=== PATIENT | male | born 1940 | race Caucasian/White ===

== ENCOUNTER 2017-10-08 11:29 | Inpatient (IN) ==
--- NOTE | 2017-10-08 12:00 | Emergency Department Note ---
Disposition Clinical Impression: Hyponatremia, Acute exacerbation of chronic obstructive airways disease Disposition: Admitted As Inpatient Condition: Fair Referrals: Angel Harrell MD [Primary Care Provider] - Time of Disposition: 14:05 SOB HPI - General Chief Complaint: ED Shortness of Breath/Dyspnea Stated Complaint: Low O2 sat Source: patient Mode of arrival: ambulatory Limitations: no limitations Nursing Notes Reviewed: Yes Vital Signs Reviewed: Yes - History of Present Illness 77-year-old male with history of COPD presents to emergency department with complaint of shortness of breath. States this present for 2 days however time of interview patient is currently asymptomatic. Did notice that at urgent care his oxygen saturation was 87%. Oxygen dependent at home but does take albuterol and fluticasone inhalers at home. Does admit to a productive cough with thick green sputum which is changed from his baseline cough of thick and clear. Denies any symptoms of orthopnea, PND, fevers, chills, recent illness, chest pain, sick contacts. He states he has never been admitted for his COPD and has had some relief with his inhalers. Pt Subjective Complaint: shortness of breath Onset (ago): day(s) Consistency/Duration: constant Improves with: bronchodilators Worsens with: nothing Known history of: COPD Associated symptoms: Reports: cough. Denies: chest pain, fever, wheezing, orthopnea, palpitations, diaphoresis, nausea/vomiting Treatment prior to arrival: bronchodilator Cough present: Yes Cough Description: Productive Sputum production: Yes Sputum Amount: Moderate Sputum Color: Green - Related Data Home oxygen amount: none Home Medications Medication Instructions Recorded Confirmed ALPRAZolam [Xanax 1 MG Tablet] 1 mg PO BID 10/08/17 10/08/17 Albuterol Sulfate [Ventolin Hfa] 2 puff IH Q4H PRN 10/08/17 10/08/17 Fluticasone Propionate Nasal 2 spr NS DAILY 10/08/17 10/08/17 [Flonase] Fluticasone/Vilanterol [Breo 1 puff IH DAILY 10/08/17 10/08/17 Ellipta 100-25 Mcg INH] Montelukast [Singulair] 10 mg PO DAILY 10/08/17 10/08/17 Ranitidine HCl [Zantac] 300 mg PO DAILY 10/08/17 10/08/17 Sulfamethoxazole/Trimeth DS 1 tab PO BID 10/08/17 10/08/17 [Bactrim DS] Allergies Allergy/AdvReac Type Severity Reaction Status Date / Time tiotropium AdvReac Vomiting Verified 10/08/17 15:01 [From Spiriva with HandiHaler] All systems ED: reviewed and negative except as stated. Review of Systems: As Per HPI Past Medical History - Past Medical History Medical history: Reports: asthma, COPD, GERD Psychiatric history: Reports: no psych history - Social History Smoking Status: Never smoker Smokeless Tobacco Status: No Alcohol use: Reports: none Drug use: Reports: none Physical Exam - General Limitations: no limitations General appearance: alert - Head Head exam: atraumatic, normocephalic, normal inspection - ENT ENT exam: normal exam, normal oropharynx, mucous membranes moist - Neck Neck exam: Present: normal inspection, full ROM, trachea midline - Chest Chest inspection: Present: normal inspection, symmetric chest wall rise - Respiratory Respiratory exam: Present: normal lung sounds bilaterally. Absent: respiratory distress, wheezes - Cardiovascular Cardiovascular exam: Present: regular rate, normal rhythm, normal heart sounds - Extremities Exam Extremities exam: Present: normal inspection, full ROM. Absent: tenderness, pedal edema - Neurological Exam Neurological exam: Present: alert, oriented X3 - Psychiatric Psychiatric exam: Present: normal affect, normal mood - Skin Skin exam: Present: warm, dry, intact, normal color Course Course Narrative: 77-year-old male presenting with 2 emergency room department with a complaint of shortness of breath. Vital signs upon presentation are significant for an oxygen saturation of 96% on room air, nontender cardiac, nontachypneic. No significant wheezing auscultated on exam. We will obtain a chest x-ray to evaluate for any underlying pneumonias versus COPD exacerbation. Obtain labs of CBC, BMP, troponin, d-dimer. - Reevaluation(s) Reevaluation #1: Patient now reveals that he is experiencing substernal chest discomfort upon exertion when discussing with attending physician. We will in addition obtain a d-dimer, troponin, EKG and start workup for ACS rule out. Time: 12:10 Vital Signs Temperature 97.4 F L 10/08/17 11:30 Pulse Rate 71 10/08/17 11:30 Respiratory Rate 18 10/08/17 11:30 Blood Pressure 167/77 10/08/17 11:30 O2 Sat by Pulse Oximetry 95 10/08/17 11:30 Temperature 98.4 F 10/08/17 15:09 Pulse Rate 67 10/08/17 15:09 Respiratory Rate 18 10/08/17 15:09 Blood Pressure 184/83 10/08/17 15:09 O2 Sat by Pulse Oximetry 93 10/08/17 15:09 Oxygen Delivery Oxygen Delivery Room Air Shortness of Breath/Dyspnea - [facility] Narrative Medical decision making narrative: 77-year-old male with complaint of shortness of breath. Workup revealed a normal CBC, troponin, EKG. His chest x-ray revealed hyperexpansion with no acute process. His vital signs have remained stable saturating mid 90s on room air and non-tachycardic. His labs were significant however for a sodium of 118 which is decreased from lab draws 3 days ago of 130. No other chemistry abnormalities. We will discuss this with the hospitalist for possible admission of hyponatremia. Discussed with hospitalist, agrees for admission. We will begin SIADH workup including urine sodium and osmolality, tsh. - Lab Data Result diagrams: 10/08/17 12:13 10/08/17 14:48 Lab Results 10/08/17 10/08/17 10/08/17 Range/Units 12:13 12:13 12:13 WBC 8.3 (4.3-11.1) K/mcL RBC 4.49 (4.19-5.50) M/mcL Hgb 13.0 (12.9-16.9) g/dL Hct 37.8 (37.5-50.1) % MCV 84.2 (83.0-100.0) fL MCH 29.0 (28.0-33.3) pg MCHC 34.4 (31.6-35.5) g/dL RDW 13.0 (11.5-14.5) % Plt Count 249 (140-400) K/mcL MPV 8.3 L (9.4-12.4) fL Immature Gran % 0.4 (0-4) % Seg Neutrophils % 80.0 % Lymphocytes % 11.6 % Monocytes % 6.9 % Eosinophils % 0.6 % Basophils % 0.5 % Neutrophils # 6.7 (1.6-8.9) K/mcL Lymphocytes # 1.0 (0.6-4.6) K/mcL Monocytes # 0.6 (0.0-1.3) K/mcL Eosinophils # 0.1 (0.0-0.6) K/mcL Basophils # 0.0 (0.0-0.2) K/mcL D-Dimer 368 (0-500) ng/mLFEU Sodium 118 L* (136-145) mEq/L Potassium 4.2 (3.5-5.1) mEq/L Chloride 85 L (98-107) mEq/L Carbon Dioxide 23 (23-29) mEq/L BUN 11 (8-23) mg/dL Creatinine 0.83 (0.70-1.30) mg/dL Est GFR ( Amer) > 60 (> 60) Est GFR (Non-Af Amer) > 60 (> 60) BUN/Creatinine Ratio 13 (6-26) Glucose 97 (70-105) mg/dL Calculated Osmolality 245 L (280-300) Uric Acid (2.3-7.6) mg/dL Calcium 9.7 (8.6-10.3) mg/dL Troponin I < 0.03 (< 0.04) ng/mL TSH (0.340-5.600) mcIU/mL 10/08/17 Range/Units 14:48 WBC (4.3-11.1) K/mcL RBC (4.19-5.50) M/mcL Hgb (12.9-16.9) g/dL Hct (37.5-50.1) % MCV (83.0-100.0) fL MCH (28.0-33.3) pg MCHC (31.6-35.5) g/dL RDW (11.5-14.5) % Plt Count (140-400) K/mcL MPV (9.4-12.4) fL Immature Gran % (0-4) % Seg Neutrophils % % Lymphocytes % % Monocytes % % Eosinophils % % Basophils % % Neutrophils # (1.6-8.9) K/mcL Lymphocytes # (0.6-4.6) K/mcL Monocytes # (0.0-1.3) K/mcL Eosinophils # (0.0-0.6) K/mcL Basophils # (0.0-0.2) K/mcL D-Dimer (0-500) ng/mLFEU Sodium 119 L* (136-145) mEq/L Potassium (3.5-5.1) mEq/L Chloride (98-107) mEq/L Carbon Dioxide (23-29) mEq/L BUN (8-23) mg/dL Creatinine (0.70-1.30) mg/dL Est GFR ( Amer) (> 60) Est GFR (Non-Af Amer) (> 60) BUN/Creatinine Ratio (6-26) Glucose (70-105) mg/dL Calculated Osmolality (280-300) Uric Acid 3.1 (2.3-7.6) mg/dL Calcium (8.6-10.3) mg/dL Troponin I (< 0.04) ng/mL TSH 1.628 (0.340-5.600) mcIU/mL
[2017-10-08 12:26] LABS: Basophils % 0.5 %; Eosinophils # 0.1 K/mcL (0.0-0.6); Eosinophils % 0.6 %; Hematocrit 37.8 % (37.5-50.1); Immature Granulocytes % 0.4 % (0-4); Lymphocytes % 11.6 %; Mean Corpuscular HGB Conc 34.4 g/dL (31.6-35.5); Mean Corpuscular Volume 84.2 fL (83.0-100.0); Mean Platelet Volume 8.3 fL (9.4-12.4); Monocytes # 0.6 K/mcL (0.0-1.3); Monocytes % 6.9 %; Neutrophils # 6.7 K/mcL (1.6-8.9); Platelet Count 249 K/mcL (140-400); Red Blood Count 4.49 M/mcL (4.19-5.50)
[2017-10-08 12:49] LABS: Troponin I < 0.03 ng/mL (< 0.04)
[2017-10-08 12:52] LABS: BUN/Creatinine Ratio 13 (6-26); Blood Urea Nitrogen 11 mg/dL (8-23); Calcium 9.7 mg/dL (8.6-10.3); Carbon Dioxide 23 mEq/L (23-29); Chloride 85 mEq/L (98-107); Glucose 97 mg/dL (70-105); Osmolality,Calculated 245 (280-300); Potassium 4.2 mEq/L (3.5-5.1); Sodium 118 mEq/L (136-145); eGFR For African Americans > 60 (> 60); eGFR For Non-African Americans > 60 (> 60)
--- NOTE | 2017-10-08 13:20 | Emergency Department Note ---
START Narrative - START START: I examined this patient and my medical decision-making was reviewed with the CONFIDENTIAL SECRETARY/PA/Advanced Practice Nurse/Resident Physician. I agree with the documented findings, disposition and treatment plan as described except to the extent set forth below. The patient does have some bilateral wheezing with forced expiration but not with normal respirations and he has had a color change in sputum. Chest pain worse with exertion and also pleuritic aspect that the troponin and d-dimer are both negative however we did find severe hyponatremia with a level of 118 the patient will be admitted for further evaluation and monitoring. 1320 I did review the patient's EKG showing normal sinus rhythm with a rate of 70 and without evidence of arrhythmia however there is one PVC. No ischemia changes. 1511
[2017-10-08] MEDS ORDERED: 0.9 % Sodium Chloride 1,000 ML IVC ONE (13:39)
[2017-10-08] MEDS ORDERED: Naloxone 0.4 MG/ML INJ IVP PRN (14:56)
[2017-10-08] MEDS ORDERED: Nitroglycerin 0.4 MG TAB.SUBL SL PRN (14:56)
[2017-10-08] MEDS ORDERED: Acetaminophen 325 MG TABLET PO PRN (14:56)
[2017-10-08] MEDS ORDERED: *HR* HYDROcodone/Acet 5/325 mg TABLET PO PRN (14:56)
--- NOTE | 2017-10-08 15:04 | Internal Med History&Physical ---
Date of Encounter: 10/08/17 Time of Encounter: 15:02 Assessment and Plan (1) Hyponatremia Current visit: Yes Status: Acute Severe hyponatremia, unknown cause Check uric acid, if low consider possible SIADH The patient appears to be euvolemic Order stat urine sodium urine osmolality to determine whether the patient needs fluid restriction or supplementation of sodium Monitor sodium every 4 hours, did not increase estrogen 0.5 mEq per hour and maximum of 8 mEq in 24 hours Omeprazole for GI prophylaxis and subcutaneous tinzaparin for DVT prophylaxis. The patient will be admitted as inpatient, expected to stay more than 2 midnights. Full code. Time spent on this admission 40 minutes (2) COPD with acute exacerbation Current visit: Yes Status: Acute Acute on chronic hypoxic respiratory failure secondary to acute COPD exacerbation due to acute bacterial bronchitis, Start Solu-Medrol, Rocephin DuoNeb nebs, oxygen therapy (3) Bronchitis Current visit: Yes Status: Acute (4) GERD (gastroesophageal reflux disease) Current visit: Yes Status: Acute Omeprazole Qualifiers: Esophagitis presence: without esophagitis Qualified Code(s): K21.9 - Gastro -esophageal reflux disease without esophagitis (5) Accelerated hypertension Current visit: Yes Status: Acute Start lisinopril, hydralazine as needed Internal Medicine - H&P: HPI Chief complaint: Shortness of breath and low sodium Admitted From: Emergency Dept History of present illness: Mr. Johnston is a 77 year old male with a past medical history of COPD oxygen dependent, anxiety, GERD, hypertension, came to emergency room complaining of difficulty breathing for the past 2 days, apparently he was seen at an urgent care facility where he was told that he is oxygen saturation was 87%. He has been having greenish sputum/productive cough for the past couple days, denies any sick contacts. Chest x-ray shows signs of emphysema. He was seen by his primary care physician a few days ago in precisely on 10/05/2017 he sodium was 130, today he sodium has decreased down to 118 chloride is 85, the patient mentions that he drinks about a gallon of water every day, does not appear to be dehydrated, appears to be very thin. No other complaints. Blood pressure is 167 over 77, complains of mild abdominal pain. Past Med Surg Social Fam HX - Past Medical History Medical history: asthma, COPD (Oxygen dependent, was not able to have oxygen as his insurance company did not work with the provider), GERD, hypertension Psychiatric history: no psych history - Past Surgical History Surgical History: no surgical history - Social History Smoking Status: Former smoker Packs per day: Quit smoking more than 10 years ago Smokeless Tobacco Status: No Alcohol use: none Drug use: none - Additional Family History Additional family history: Father with heart failure Internal Medicine - H&P: Meds ALPRAZolam [Xanax 1 MG Tablet] 1 mg PO BID 10/08/17 [History] Albuterol Sulfate [Ventolin Hfa] 2 puff IH Q4H PRN 10/08/17 [History] Fluticasone Propionate Nasal [Flonase] 2 spr NS DAILY 10/08/17 [History] Fluticasone/Vilanterol [Breo Ellipta 100-25 Mcg INH] 1 puff IH DAILY 10/08/17 [ History] Montelukast [Singulair] 10 mg PO DAILY 10/08/17 [History] Ranitidine HCl [Zantac] 300 mg PO DAILY 10/08/17 [History] Sulfamethoxazole/Trimeth DS [Bactrim DS] 1 tab PO BID 10/08/17 [History] 3 Allergy/AdvReac Type Severity Reaction Status Date / Time tiotropium AdvReac Vomiting Verified 10/08/17 15:01 [From Spiriva with HandiHaler] All Systems PM: A 10-system review of systems was performed and is negative for pertinent findings except as documented above in the HPI. Review of systems: No chest pain, other systems out of the 10 reviewed were negative - Constitutional Vitals: Temp Pulse Resp BP Pulse Ox 97.4 F L 63 18 128/94 93 10/08/17 11:30 10/08/17 12:54 10/08/17 14:57 10/08/17 14:57 10/08/17 12:54 General appearance: Present: A&O X 3, underweight - Head Head exam: Present: atraumatic, normocephalic - Eye Eye exam: Present: PERRL, conjuntiva pink, sclera anicteric Pupils: Present: PERRL - Neck Neck exam general surgery: Present: supple, trachea midline. Absent: lymphadenopathy - Respiratory Respiratory exam: Present: decreased breath sounds (Mild diffuse wheezing and very diminished breath sounds), CTAB. Absent: accessory muscle use, rales, rhonchi, wheezes - Cardiovascular Cardiovascular exam: Present: RRR, +S1, +S2. Absent: diastolic murmur, gallop, rubs, systolic murmur - GI/Abdominal GI/Abdominal exam: Present: normal bowel sounds, soft, no peritoneal signs. Absent: distended, tenderness - Extremities Exam Extremities exam: Present: warm, radial pulses palpable and symmetrical. Absent : calf tenderness, cyanotic, pedal edema - Neurological Exam Neurological exam: Present: CN II-XII intact, oriented X3, no focal deficits. Absent: pronater drift, facial droop, speech deficit - Skin Skin exam: Present: dry, intact Internal Med - H&P Results - Labs CBC & Chem 7: 10/08/17 12:13 10/08/17 12:13
[2017-10-08 15:33] LABS: Thyroid Stimulating Hormone 1.628 mcIU/mL (0.340-5.600)
[2017-10-08 15:52] LABS: Uric Acid 3.1 mg/dL (2.3-7.6)
[2017-10-08] MEDS: Lisinopril 20 MG TABLET PO SCH (16:22)
[2017-10-08] MEDS: *HR* Heparin 5,000 UNIT/ML VIAL SQ SCH ×2 (16:22→20:49)
[2017-10-08] MEDS: cefTRIAXone 1,000 MG in Water for inj. (sterile) 20 ML 10 ML IVP SCH (16:23)
[2017-10-08] MEDS: MethylPREDNISolone 40 MG/ML VIAL IVP SCH (16:23)
[2017-10-08] MEDS: Ipratropium/Albuterol Neb 3 ML IH SCH ×2 (16:44→22:51)
[2017-10-08] MEDS ORDERED: D5% in Water 1,000 ML IVC SCH (20:15)
[2017-10-08] MEDS: ALPRAZolam 1 MG TABLET PO SCH (20:49)
[2017-10-09] MEDS: MethylPREDNISolone 40 MG/ML VIAL IVP SCH ×3 (00:35→17:45)
[2017-10-09 03:44] LABS: BUN/Creatinine Ratio 15 (6-26); Blood Urea Nitrogen 14 mg/dL (8-23); Calcium 9.8 mg/dL (8.6-10.3); Carbon Dioxide 22 mEq/L (23-29); Chloride 91 mEq/L (98-107); Glucose 194 mg/dL (70-105); Osmolality,Calculated 262 (280-300); Potassium 4.1 mEq/L (3.5-5.1); Sodium 123 mEq/L (136-145); eGFR For African Americans > 60 (> 60); eGFR For Non-African Americans > 60 (> 60)
[2017-10-09] MEDS: Ipratropium/Albuterol Neb 3 ML IH SCH ×4 (03:57→22:00)
[2017-10-09] MEDS: *HR* Heparin 5,000 UNIT/ML VIAL SQ SCH ×3 (06:34→21:42)
[2017-10-09] MEDS: Lisinopril 20 MG TABLET PO SCH (07:30)
[2017-10-09] MEDS: ALPRAZolam 1 MG TABLET PO SCH ×2 (07:31→21:42)
[2017-10-09 11:02] LABS: Adenovirus Not Detected (Not Detect); Bordetella Pertussis Not Detected (Not Detect); Chlamydophila pneumoniae Not Detected (Not Detect); Coronavirus 229E Not Detected (Not Detect); Coronavirus HKU1 Not Detected (Not Detect); Coronavirus NL63 Not Detected (Not Detect); Coronavirus OC43 Not Detected (Not Detect); Human Metapneumovirus Not Detected (Not Detect); Human Rhinovirus/Enterovirus Not Detected (Not Detect); Influenza A Subtype 2009 H1 Not Detected (Not Detect); Influenza A Untypeable Not Detected (Not Detect); Influenza B Not Detected (Not Detect); Mycoplasma pneumoniae Not Detected (Not Detect); Parainfluenza Virus 1 Not Detected (Not Detect); Parainfluenza Virus 2 Not Detected (Not Detect); Parainfluenza Virus 3 Not Detected (Not Detect); Parainfluenza Virus 4 Not Detected (Not Detect); Respiratory Syncytial Virus Not Detected (Not Detect)
[2017-10-09 12:35] LABS: BUN/Creatinine Ratio 14 (6-26); Blood Urea Nitrogen 13 mg/dL (8-23); Calcium 10.1 mg/dL (8.6-10.3); Carbon Dioxide 22 mEq/L (23-29); Chloride 92 mEq/L (98-107); Glucose 124 mg/dL (70-105); Osmolality,Calculated 262 (280-300); Potassium 4.2 mEq/L (3.5-5.1); Sodium 125 mEq/L (136-145); eGFR For African Americans > 60 (> 60); eGFR For Non-African Americans > 60 (> 60)
[2017-10-09] MEDS: cefTRIAXone 1,000 MG in Water for inj. (sterile) 20 ML 10 ML IVP SCH (15:32)
--- NOTE | 2017-10-09 16:08 | Internal Med Progress Note ---
Date of Encounter: 10/09/17 Time of Encounter: 09:00 - Assessment and plan (1) Hyponatremia Current Visit: Yes Status: Acute Assessment and plan: Acute onset. Serum sodium 3 days prior to admission noted to be 130. Patient reports drinking significant amounts of water due to acute bronchitis. Urine osmolality low at 152. Suspect this is due to polydipsia. Discontinue IV fluids and continue to monitor serum sodium closely. Repeat sodium at 125. (2) Acute exacerbation of chronic obstructive airways disease Current Visit: Yes Status: Acute Assessment and plan: Improving. Taper down IV steroids as tolerated. Continue empiric IV antibiotics- Rocephin, add Zithromax; chest x-ray shows no evidence of pneumonia. continue bronchodilator nebulization, supplemental oxygen. Respiratory infection panel negative. Patient requires home oxygen evaluation at the time of discharge. (3) Essential hypertension Current Visit: Yes Status: Chronic Assessment and plan: Patient is not noted to be on any antihypertensives at home, however started on lisinopril due to elevated blood pressure at admission. Currently noted to be borderline low blood pressure. Hold lisinopril. (4) GERD (gastroesophageal reflux disease) Current Visit: Yes Status: Chronic Qualifiers: Esophagitis presence: without esophagitis Qualified Code(s): K21.9 - Gastro -esophageal reflux disease without esophagitis - Subjective Interval history: Feels better; improving dyspnea, wheezing; reports inability to cough up secretions; no home O2; - Constitutional Vitals: Temp Pulse Resp BP Pulse Ox 99.0 F 80 17 101/65 92 10/09/17 10:47 10/09/17 10:47 10/09/17 10:47 10/09/17 10:47 10/09/17 10:47 General appearance: Present: A&O X 3, underweight, answers questions appropriately - Respiratory Respiratory exam: Present: CTAB (coarse breath sounds B/L). Absent: accessory muscle use, rales, rhonchi, wheezes - Cardiovascular Cardiovascular exam: Present: RRR, +S1, +S2. Absent: diastolic murmur, gallop, rubs, systolic murmur - GI/Abdominal GI/Abdominal exam: Present: normal bowel sounds, soft, no peritoneal signs. Absent: distended, tenderness - Extremities Exam Extremities exam: Present: full ROM, warm, radial pulses palpable and symmetrical. Absent: calf tenderness, cyanotic, pedal edema - Neurological Exam Neurological exam: Present: CN II-XII intact, oriented X3, no focal deficits. Absent: pronater drift, facial droop, speech deficit Internal Medicine: Result - Labs CBC & Chem 7: 10/08/17 12:13 10/09/17 11:49 Labs: BMP 10/08/17 10/08/17 10/09/17 18:44 22:08 03:13 Sodium 122 L 123 L 123 L Potassium 4.1 Chloride 91 L Carbon Dioxide 22 L BUN 14 Creatinine 0.92 Glucose 194 H Calcium 9.8 10/09/17 11:49 Sodium 125 L Potassium 4.2 Chloride 92 L Carbon Dioxide 22 L BUN 13 Creatinine 0.96 Glucose 124 H Calcium 10.1 - ABG Interpretation ABG results: PT/INR, D-dimer D-Dimer 368 ng/mLFEU (0-500) 10/08/17 12:13 Consult Discharge Plan - Plan Referrals: Angel Harrell MD [Primary Care Provider] -
--- NOTE | 2017-10-09 16:57 | Electrocardiograph Report ---
[address] [address] Test Date: 2017-10-08 Pat Name: Talon Johnston Department: 102 Room: 2A11 Gender: M [employer] Coach: Henny : 1940 Requested By: Yohannes Rodriguez Order Number: [id number] Reading MD: Jose Villeda Measurements Intervals [place] Rate: 70 P: 84 SD: 153 QRS: 78 QRSD: 101 T: 72 QT: 376 QTc: 396 Interpretive Statements SINUS RHYTHM WITH OCCASIONAL VENTRICULAR PREMATURE COMPLEXES Electronically Signed On 10-09-2017 16:56:34 EST by Jose Villeda
[2017-10-09] MEDS ORDERED: Azithromycin 500 MG in D5% in Water 250 ML IVPB SCH (17:00)
[2017-10-10 03:55] LABS: BUN/Creatinine Ratio 20 (6-26); Blood Urea Nitrogen 20 mg/dL (8-23); Calcium 9.9 mg/dL (8.6-10.3); Carbon Dioxide 21 mEq/L (23-29); Chloride 96 mEq/L (98-107); Glucose 146 mg/dL (70-105); Magnesium 1.9 mg/dL (1.6-2.6); Osmolality,Calculated 271 (280-300); Potassium 4.2 mEq/L (3.5-5.1); Sodium 128 mEq/L (136-145); eGFR For African Americans > 60 (> 60); eGFR For Non-African Americans > 60 (> 60)
[2017-10-10] MEDS: Ipratropium/Albuterol Neb 3 ML IH SCH ×2 (04:32→09:46)
[2017-10-10] MEDS: *HR* Heparin 5,000 UNIT/ML VIAL SQ SCH (06:02)
[2017-10-10] MEDS: MethylPREDNISolone 40 MG/ML VIAL IVP SCH (06:02)
[2017-10-10 06:48] VITALS: BP 109/64
[2017-10-10] MEDS: ALPRAZolam 1 MG TABLET PO SCH (09:12)
--- NOTE | 2017-10-10 10:31 | Discharge Summary ---
Date of Encounter: 10/10/17 Time of Encounter: 09:15 - Discharge Diagnosis (1) Hyponatremia Priority: Primary Status: Acute (2) Acute exacerbation of chronic obstructive airways disease Priority: Primary Status: Acute (3) Essential hypertension Priority: Secondary Status: Suspected (4) GERD (gastroesophageal reflux disease) Priority: Secondary Status: Chronic Qualifiers: Esophagitis presence: without esophagitis Qualified Code(s): K21.9 - Gastro -esophageal reflux disease without esophagitis Hospital course: Mr. Johnston is a 77 year old male with history of COPD, who was admitted with worsening cough and shortness of breath. Patient was recently started on a course of oral Bactrim by his PCP. Chest x-ray showed no evidence of pneumonia. Respiratory infection panel negative. He was started on treatment for acute exacerbation of COPD with IV steroids, empiric IV antibiotics, bronchodilators nebulization, supplemental oxygen. Patient was apparently noted to be hypoxic on room air during a prior urgent care visit, however did not require supplemental oxygen during this admission, hence does not qualify for home oxygen. He was noted to have hypoosmolar hyponatremia at admission, which is likely due to excessive ingestion of free water. He was placed on fluid restriction and serum sodium gradually improved to 128. He was also noted to have uncontrolled hypertension at the time of admission and was started on CHRISTIAN inhibitor, not noted to be on antihypertensives at home. Blood pressures remained low normal and lisinopril has been discontinued. He is currently doing well, hemodynamically stable and medically stable for discharge with outpatient follow-up. Discharge discussed with: patient - Time Spent with Patient Total time spent providing and/or coordinating discharge services: Greater than 30 minutes (40 min) - Discharge Medications Prescriptions: Omeprazole [PriLOSEC] 20 mg PO DAILY@0630 #10 capsule. predniSONE [PredniSONE] 40 mg PO DAILY #10 tablet Home Medications: ALPRAZolam [Xanax 1 MG Tablet] 1 mg PO BID 10/08/17 [History] Albuterol Sulfate [Ventolin Hfa] 2 puff IH Q4H PRN 10/08/17 [History] Fluticasone Propionate Nasal [Flonase] 2 spr NS DAILY 10/08/17 [History] Fluticasone/Vilanterol [Breo Ellipta 100-25 Mcg INH] 1 puff IH DAILY 10/08/17 [ History] Montelukast [Singulair] 10 mg PO DAILY 10/08/17 [History] Ranitidine HCl [Zantac] 300 mg PO DAILY 10/08/17 [History] Sulfamethoxazole/Trimeth DS [Bactrim Ds] 1 tab PO BID 10/08/17 [History] Omeprazole [PriLOSEC] 20 mg PO DAILY@0630 #10 capsule. 10/10/17 [Rx] predniSONE [PredniSONE] 40 mg PO DAILY #10 tablet 10/10/17 [Rx] Allergies/Adverse Reactions: 3 Allergy/AdvReac Type Severity Reaction Status Date / Time tiotropium AdvReac Vomiting Verified 10/08/17 15:01 [From Spiriva with HandiHaler] Date of admission: 10/08/17 16:27 Primary care physician: Angel Harrell MD - Constitutional Vitals: Temp Pulse Resp BP Pulse Ox 98.2 F 85 18 109/64 92 10/10/17 06:47 10/10/17 06:47 10/10/17 09:48 10/10/17 06:47 10/10/17 09:48 General appearance: Present: A&O X 3, underweight, answers questions appropriately - Respiratory Respiratory exam: Present: CTAB. Absent: accessory muscle use, rales, rhonchi, wheezes - Cardiovascular Cardiovascular exam: Present: RRR, +S1, +S2. Absent: diastolic murmur, gallop, rubs, systolic murmur - Patient Status Disposition: Home, Self-Care Condition: Good Functional capacity at discharge: independent ambulation Overall status at discharge: patient is progressing back to baseline - Discharge Instructions Follow Up With: Angel Harrell MD [Primary Care Provider] - (Web Request sent on 10/10/17 at 1018) Additional Instructions: F/up with PCP in 1-2 weeks - Diet and Activity Activity: resume usual activities as tolerated Diet: low fat, low cholesterol, low salt diet
== END 2017-10-10 11:08 | disposition home or self-care (01) | DRG 640 ==
LOC: 2ANU 11:29 → EMEROO 11:29 → 2ANU 14:59 → SUATTDRO 16:27
PROVIDERS: ADMIT Family Medicine; ATTEND Internal Medicine

== ENCOUNTER 2017-11-20 14:35 | Inpatient (IN) ==
--- NOTE | 2017-11-20 14:46 | Emergency Department Note ---
Disposition Clinical Impression: Mass of urinary bladder Disposition: Admitted As Inpatient Condition: Fair Referrals: Angel Harrell MD [Primary Care Provider] - Forms: ED Satisfaction Letter Time of Disposition: 18:15 Male Urogenital HPI - General Chief complaint: ED Urogenital-Male Stated complaint: urinating blood Time Seen by Provider: 11/20/17 14:43 Source: patient, family Limitations: no limitations Nursing Notes Reviewed: Yes Vital Signs Reviewed: Yes - History of Present Illness HPI Narrative: Patient is a 77-year-old male with a past medical history of asthma, COPD, and GERD that presents for 6 days of hematuria. Patient says that he experiences dysuria and bilateral flank pain along with suprapubic pain when he is urinating but is asymptomatic otherwise. He admits to polyuria for the past 6 days. He denies any fever, chills, nausea, or vomiting. He says that he visited his PCP 2 weeks ago for reasons he is not sure of, but he says he was put on ciprofloxacin. He currently denies any back pain or abdominal pain. He denies any history of kidney stones. He denies any hematochezia or melena. Denies any diarrhea or constipation. - Related Data Home Medications Medication Instructions Recorded Confirmed ALPRAZolam [Xanax 1 MG Tablet] 1 mg PO BID 10/08/17 10/08/17 Albuterol Sulfate [Ventolin Hfa] 2 puff IH Q4H PRN 10/08/17 10/08/17 Fluticasone Propionate Nasal 2 spr NS DAILY 10/08/17 10/08/17 [Flonase] Fluticasone/Vilanterol [Breo 1 puff IH DAILY 10/08/17 10/08/17 Ellipta 100-25 Mcg INH] Montelukast [Singulair] 10 mg PO DAILY 10/08/17 10/08/17 Ranitidine HCl [Zantac] 300 mg PO DAILY 10/08/17 10/08/17 Previous Rx's Medication Instructions Recorded Omeprazole [PriLOSEC] 20 mg PO DAILY@0630 #10 capsule. 10/10/17 Nitrofurantoin (BID) [Macrobid] 100 mg PO BID 7 Days #14 capsule 10/31/17 Allergies Allergy/AdvReac Type Severity Reaction Status Date / Time tiotropium AdvReac Vomiting Verified 10/08/17 15:01 [From Spiriva with HandiHaler] Constitutional: Denies: fever, chills, weakness, weight change Cardiovascular: Denies: chest pain, palpitations, dyspnea on exertion, edema, syncope Respiratory: Denies: cough, dyspnea, wheezes, hemoptysis, stridor Gastrointestinal: Denies: abdominal pain, nausea, vomiting, diarrhea, constipation, hematemesis, melena, hematochezia Genitourinary: Reports: dysuria, hematuria. Denies: discharge Past Medical History - Past Medical History Medical history: Reports: asthma, COPD, GERD Surgical history: Reports: no surgical history Psychiatric history: Reports: no psych history - Social History Smoking Status: Never smoker Smokeless Tobacco Status: No Alcohol use: Reports: none Drug use: Reports: none Physical Exam - General Limitations: no limitations General appearance: alert, in no apparent distress - Chest Chest inspection: Present: normal inspection, symmetric chest wall rise - Respiratory Respiratory exam: Present: normal lung sounds bilaterally - Cardiovascular Cardiovascular exam: Present: regular rate, normal rhythm, normal heart sounds, +S1, +S2 - Abdominal Exam Abdominal Exam: Present: soft, Non-Tender, normal bowel sounds. Absent: guarding, rebound, Desai's sign, Rovsing's sign, tenderness at McBurney's Point Abdominal Tenderness: Absent: suprapubic - Back Exam Back exam: Absent: CVA tenderness (R), CVA tenderness (L) Course Course Narrative: We will go ahead and obtain a CT without contrast of the abdomen and pelvis to evaluate for nephrolithiasis. Patient denies being on any anticoagulant medications at home. We will go ahead and obtain a UA to rule out a UTI. Patient denies any recent significant weight loss. He denies any history of diabetes. Update 11/20/17 1752: UA is still pending. CT of the pelvis shows a density is seen within the dependent portion of the urinary bladder on image number 141 of series 2 measuring up to 6.6 x 3.4 cm in diameter. This could reflect a combination of hemorrhage and mass. This is most likely the source of the patient's hematuria. Patient also has a 1.6 drop in his hgb when compared to his previous visit which is concerning. Urology consult was put in and spoke to Dr. Rodas. Urology will see the patient and requests no antibiotics be started for now. Spoke to hospitalist Dr. Brunner who agreed to admit the patient for further evaluation. Vital Signs Temperature 98.2 F 11/20/17 14:36 Pulse Rate 104 11/20/17 14:36 Respiratory Rate 18 11/20/17 14:36 Blood Pressure 148/66 11/20/17 14:36 O2 Sat by Pulse Oximetry 94 11/20/17 14:36 Temperature 98.2 F 11/20/17 14:42 Pulse Rate 104 11/20/17 14:42 Respiratory Rate 18 11/20/17 14:42 Blood Pressure 148/66 11/20/17 14:42 O2 Sat by Pulse Oximetry 94 11/20/17 14:42 Oxygen Delivery Oxygen Delivery Room Air Urogenital-Male - Lab Data Result diagrams: 11/20/17 15:46 11/20/17 15:46 Lab Results 11/20/17 11/20/17 11/20/17 Range/Units 15:46 15:46 15:46 WBC 9.4 (4.3-11.1) K/mcL RBC 3.78 L (4.19-5.50) M/mcL Hgb 11.4 L (12.9-16.9) g/dL Hct 33.5 L (37.5-50.1) % MCV 88.6 (83.0-100.0) fL MCH 30.2 (28.0-33.3) pg MCHC 34.0 (31.6-35.5) g/dL RDW 13.7 (11.5-14.5) % Plt Count 252 (140-400) K/mcL MPV 8.8 L (9.4-12.4) fL Immature Gran % 0.3 (0-4) % Seg Neutrophils % 80.4 % Lymphocytes % 11.0 % Monocytes % 7.2 % Eosinophils % 0.6 % Basophils % 0.5 % Neutrophils # 7.5 (1.6-8.9) K/mcL Lymphocytes # 1.0 (0.6-4.6) K/mcL Monocytes # 0.7 (0.0-1.3) K/mcL Eosinophils # 0.1 (0.0-0.6) K/mcL Basophils # 0.1 (0.0-0.2) K/mcL PT 12.0 (9.4-12.1) Seconds INR 1.1 Sodium 130 L (136-145) mEq/L Potassium 4.0 (3.5-5.1) mEq/L Chloride 97 L (98-107) mEq/L Carbon Dioxide 26 (23-29) mEq/L BUN 17 (8-23) mg/dL Creatinine 0.92 (0.70-1.30) mg/dL Est GFR ( Amer) > 60 (> 60) Est GFR (Non-Af Amer) > 60 (> 60) BUN/Creatinine Ratio 18 (6-26) Glucose 90 (70-105) mg/dL Calculated Osmolality 271 L (280-300) Calcium 9.6 (8.6-10.3) mg/dL - Radiology Data Radiology results reviewed: Yes I reviewed the patient's radiology results.
[2017-11-20 16:21] LABS: Basophils # 0.1 K/mcL (0.0-0.2); Basophils % 0.5 %; Eosinophils # 0.1 K/mcL (0.0-0.6); Eosinophils % 0.6 %; Hematocrit 33.5 % (37.5-50.1); Hemoglobin 11.4 g/dL (12.9-16.9); Immature Granulocytes % 0.3 % (0-4); Mean Corpuscular Hemoglobin 30.2 pg (28.0-33.3); Mean Corpuscular Volume 88.6 fL (83.0-100.0); Mean Platelet Volume 8.8 fL (9.4-12.4); Monocytes # 0.7 K/mcL (0.0-1.3); Monocytes % 7.2 %; Neutrophils # 7.5 K/mcL (1.6-8.9); Platelet Count 252 K/mcL (140-400); Red Blood Count 3.78 M/mcL (4.19-5.50); Red Cell Distribution Width 13.7 % (11.5-14.5); Segmented Neutrophils % 80.4 %
[2017-11-20 16:27] LABS: INR 1.1
[2017-11-20 16:32] LABS: BUN/Creatinine Ratio 18 (6-26); Blood Urea Nitrogen 17 mg/dL (8-23); Calcium 9.6 mg/dL (8.6-10.3); Carbon Dioxide 26 mEq/L (23-29); Chloride 97 mEq/L (98-107); Glucose 90 mg/dL (70-105); Osmolality,Calculated 271 (280-300); Sodium 130 mEq/L (136-145); eGFR For African Americans > 60 (> 60); eGFR For Non-African Americans > 60 (> 60)
--- NOTE | 2017-11-20 18:15 | Emergency Department Note ---
Disposition Clinical Impression: Mass of urinary bladder Disposition: Admitted As Inpatient Condition: Fair Time of Disposition: 19:53 General Adult HPI - General Chief complaint: ED Urogenital-Male Stated complaint: urinating blood Time Seen by Provider: 11/20/17 14:43 Source: patient, family Limitations: no limitations - History of Present Illness Pain Scale: 4 - Related Data Home Medications Medication Instructions Recorded Confirmed ALPRAZolam [Xanax 1 MG Tablet] 1 mg PO BID 10/08/17 11/20/17 Albuterol Sulfate [Ventolin Hfa] 2 puff IH Q4H PRN 10/08/17 11/20/17 Fluticasone Propionate Nasal 2 spr NS DAILY 10/08/17 11/20/17 [Flonase] Montelukast [Singulair] 10 mg PO DAILY 10/08/17 11/20/17 Ranitidine HCl [Zantac] 300 mg PO DAILY 10/08/17 11/20/17 Fluticasone/Salmeterol [Advair 1 puff IH BID 11/20/17 11/20/17 250-50 Diskus] Guaifenesin [Guaifenesin ER] 1,200 mg PO DAILY PRN 11/20/17 11/20/17 Multivitamin [One Daily Essential] 1 tab PO DAILY 11/20/17 11/20/17 Allergies Allergy/AdvReac Type Severity Reaction Status Date / Time tiotropium AdvReac Vomiting Verified 11/20/17 18:24 [From Spiriva with HandiHaler] Constitutional: Denies: fever, chills, weakness, weight change Cardiovascular: Denies: chest pain, palpitations, dyspnea on exertion, edema, syncope Respiratory: Denies: cough, dyspnea, wheezes, hemoptysis, stridor Gastrointestinal: Denies: abdominal pain, nausea, vomiting, diarrhea, constipation, hematemesis, melena, hematochezia Genitourinary: Reports: dysuria, hematuria. Denies: discharge Past Medical History - Past Medical History Medical history: Reports: asthma, COPD, GERD Surgical history: Reports: no surgical history Psychiatric history: Reports: no psych history - Social History Smoking Status: Never smoker Smokeless Tobacco Status: No Alcohol use: Reports: none Drug use: Reports: none Physical Exam - General Limitations: no limitations General appearance: alert, in no apparent distress Course Vital Signs Temperature 98.2 F 11/20/17 14:36 Pulse Rate 104 11/20/17 14:36 Respiratory Rate 18 11/20/17 14:36 Blood Pressure 148/66 11/20/17 14:36 O2 Sat by Pulse Oximetry 94 11/20/17 14:36 Temperature 98.2 F 11/20/17 14:42 Pulse Rate 75 11/20/17 18:45 Respiratory Rate 16 11/20/17 18:45 Blood Pressure 149/89 11/20/17 18:45 O2 Sat by Pulse Oximetry 97 11/20/17 18:45 Oxygen Delivery Oxygen Delivery Room Air Medical Decision Making - Lab Data Result diagrams: 11/20/17 15:46 11/20/17 15:46 Lab Results 11/20/17 11/20/17 11/20/17 Range/Units 15:46 15:46 15:46 WBC 9.4 (4.3-11.1) K/mcL RBC 3.78 L (4.19-5.50) M/mcL Hgb 11.4 L (12.9-16.9) g/dL Hct 33.5 L (37.5-50.1) % MCV 88.6 (83.0-100.0) fL MCH 30.2 (28.0-33.3) pg MCHC 34.0 (31.6-35.5) g/dL RDW 13.7 (11.5-14.5) % Plt Count 252 (140-400) K/mcL MPV 8.8 L (9.4-12.4) fL Immature Gran % 0.3 (0-4) % Seg Neutrophils % 80.4 % Lymphocytes % 11.0 % Monocytes % 7.2 % Eosinophils % 0.6 % Basophils % 0.5 % Neutrophils # 7.5 (1.6-8.9) K/mcL Lymphocytes # 1.0 (0.6-4.6) K/mcL Monocytes # 0.7 (0.0-1.3) K/mcL Eosinophils # 0.1 (0.0-0.6) K/mcL Basophils # 0.1 (0.0-0.2) K/mcL PT 12.0 (9.4-12.1) Seconds INR 1.1 Sodium 130 L (136-145) mEq/L Potassium 4.0 (3.5-5.1) mEq/L Chloride 97 L (98-107) mEq/L Carbon Dioxide 26 (23-29) mEq/L BUN 17 (8-23) mg/dL Creatinine 0.92 (0.70-1.30) mg/dL Est GFR ( Amer) > 60 (> 60) Est GFR (Non-Af Amer) > 60 (> 60) BUN/Creatinine Ratio 18 (6-26) Glucose 90 (70-105) mg/dL Calculated Osmolality 271 L (280-300) Calcium 9.6 (8.6-10.3) mg/dL Attestation Statement - Attestation Attestation: I examined this patient and my medical decision-making was reviewed with the Resident Physician. I agree with the documented findings, disposition and treatment plan as described except to the extent set forth below. I had face to face time with the patient. Patient states he has had significant hematuria for the last 6 days. His family doctor did put him on Cipro. Patient's not sure why he was put on Cipro. On physical exam he does have some mild tenderness suprapubic region. A CT scan was obtained and did show 6.6 cm clot and they could not rule out a tumor. Hemoglobin was 11.4. Hemoglobin from about a month ago was 13. Consultation was obtained with the urology who will see the patient. Patient will be admitted to the hospitalist.
[2017-11-20] MEDS ORDERED: Naloxone 0.4 MG/ML INJ IVP PRN (20:21)
[2017-11-20 20:44] LABS: Bilirubin,Urine Large (Negative); Blood,Urine Large (Negative); Color,Urine Red (Yellow); Glucose,Urine (UA) 100 mg/dL (Normal); Ketones,Urine 40 mg/dL (Negative); Leukocyte Esterase,Urine Large (Negative); Nitrite,Urine Positive (Negative); Protein,Urine >=300 mg/dL (Neg-Trace); Specific Gravity,Urine 1.024 (1.010-1.025)
[2017-11-20 20:45] LABS: Clarity,Urine Turbid (Clear)
[2017-11-20] MEDS: Budesonide/Formoterol 80/4.5 MDI IH SCH (21:54)
[2017-11-20] MEDS: ALPRAZolam 1 MG TABLET PO SCH (22:18)
[2017-11-20] MEDS: 0.9 % Sodium Chloride 1,000 ML IVC SCH (22:18)
--- NOTE | 2017-11-20 22:55 | Internal Med History&Physical ---
Date of Encounter: 11/20/17 Time of Encounter: 23:45 Internal Medicine - H&P: HPI Chief complaint: Blood in my urine History of present illness: Mr. Johnston is a 77 year old male with past medical history of COPD and GERD, who presented to the ER for gross hematuria with blood clots per urethra. The patient reports his first episode of hematuria was about 2 months ago, he did not go to the hospital hematuria resolved spontaneously. The patient started complaining of dysuria about 3 days ago, he went to his primary care physician who gave him ciprofloxacin. The patient reports that his bleeding has gotten worse since then with associated blood clots. He denies dizziness, shortness of breath he denies chest pain or weakness. He has no other symptoms. We will continue the ER reveals a possible hematoma in the bladder, possible bladder mass, as well as prostatomegaly. Past Med Surg Social Fam HX - Past Medical History Medical history: asthma, COPD, GERD Psychiatric history: no psych history - Past Surgical History Surgical History: no surgical history - Social History Smoking Status: Former smoker Smokeless Tobacco Status: No Alcohol use: none Drug use: none - Family History Sister Hx Family Cancer: Yes (Breast cancer) Brother Hx Family Genitourinary Disorders: Yes (Prostate issues) Internal Medicine - H&P: Meds ALPRAZolam [Xanax 1 MG Tablet] 1 mg PO BID 10/08/17 [History] Albuterol Sulfate [Ventolin Hfa] 2 puff IH Q4H PRN 10/08/17 [History] Fluticasone Propionate Nasal [Flonase] 2 spr NS DAILY 10/08/17 [History] Montelukast [Singulair] 10 mg PO DAILY 10/08/17 [History] Ranitidine HCl [Zantac] 300 mg PO DAILY 10/08/17 [History] Fluticasone/Salmeterol [Advair 250-50 Diskus] 1 puff IH BID 11/20/17 [History] Guaifenesin [Guaifenesin ER] 1,200 mg PO DAILY PRN 11/20/17 [History] Multivitamin [One Daily Essential] 1 tab PO DAILY 11/20/17 [History] 3 Allergy/AdvReac Type Severity Reaction Status Date / Time tiotropium AdvReac Vomiting Verified 11/20/17 18:24 [From Spiriva with HandiHaler] All Systems PM: A 10-system review of systems was performed and is negative for pertinent findings except as documented above in the HPI. - Constitutional Constitutional: no chills, no fever(s), no night sweats - EENT Eyes: no change in vision, no discharge, no pain, no photophobia Ears: no ear discharge, no ear pain, no tinnitus Nose, mouth and throat: no dysphagia, no nasal discharge, no neck pain, no sore throat - Cardiovascular Cardiovascular ROS IM: no chest pain, no diaphoresis, no dyspnea, no lightheadedness, no palpitations, no syncope - Respiratory Respiratory: no cough, no dyspnea, no wheezing, no excessive phlegm production - Gastrointestinal Gastrointestinal: no abdominal pain, no diarrhea, no hematemesis, no hematochezia, no melena, no nausea, no vomiting - Genitourinary Genitourinary ROS male: as per HPI - Musculoskeletal Musculoskeletal ROS IM: no numbness, no tingling - Integumentary Integumentary IM: no rash, no unusual bruising - Hematologic/Lymphatic Hematologic/Lymphatic: no easy bruising - Constitutional Vitals: Temp Pulse Resp BP Pulse Ox 98.4 F 79 18 127/75 94 11/20/17 22:23 11/20/17 22:23 11/20/17 22:23 11/20/17 22:23 11/20/17 22:30 General appearance: Present: A&O X 3, pleasant, no acute distress - Head Head exam: Present: atraumatic, normocephalic - Eye Eye exam: Present: PERRL, conjuntiva pink, sclera anicteric Pupils: Present: PERRL - Neck Neck exam general surgery: Present: supple, trachea midline. Absent: lymphadenopathy - Respiratory Respiratory exam: Present: CTAB. Absent: accessory muscle use, rales, rhonchi, wheezes - Cardiovascular Cardiovascular exam: Present: RRR, +S1, +S2. Absent: diastolic murmur, gallop, rubs, systolic murmur - GI/Abdominal GI/Abdominal exam: Present: normal bowel sounds, soft, no peritoneal signs. Absent: distended, tenderness - Extremities Exam Extremities exam: Present: warm, radial pulses palpable and symmetrical. Absent : calf tenderness, cyanotic, pedal edema - Neurological Exam Neurological exam: Present: alert, CN II-XII intact, oriented X3, no focal deficits. Absent: pronater drift, facial droop, speech deficit - Skin Skin exam: Present: dry, intact Internal Med - H&P Results - Labs CBC & Chem 7: 11/20/17 15:46 11/20/17 15:46 - Assessment and plan (1) Mass of urinary bladder Current Visit: Yes Status: Acute Assessment and plan: reported as possible hematoma, vs bladder mass Patient is passing clots of blood per urethra Urology has been consulted by ER Gentle hydration Martinez placement if patient develops obstruction overnight-he declines for now NPO from ND for possible cystoscopy (2) Hematuria Current Visit: Yes Status: Acute Assessment and plan: Gross hematuria, with clots, and evidence of bladder hematoma vs mass Hb stabel for now Type and screen Monitor hb Urology to see-called by ER already Gentle hydration Qualifiers: Hematuria type: gross Qualified Code(s): R31.0 - Gross hematuria (3) COPD (chronic obstructive pulmonary disease) Current Visit: Yes Status: Chronic Assessment and plan: Not in exacerbation. DuoNeb's when necessary. Continue home MDIs Qualifiers: COPD type: unspecified COPD Qualified Code(s): J44.9 - Chronic obstructive pulmonary disease, unspecified (4) Anxiety Current Visit: Yes Status: Chronic Assessment and plan: continue home meds (5) Hyponatremia Current Visit: Yes Status: Acute Assessment and plan: hypoosmola, mild, give IVF, monitor closely (6) GERD (gastroesophageal reflux disease) Current Visit: Yes Status: Chronic Assessment and plan: continue home meds Qualifiers: Esophagitis presence: without esophagitis Qualified Code(s): K21.9 - Gastro -esophageal reflux disease without esophagitis (7) Essential hypertension Current Visit: Yes Status: Suspected Assessment and plan: suspected, not on any meds at home Monitor blood pressure closely (8) UTI (urinary tract infection) Current Visit: Yes Status: Acute Assessment and plan: suspected Urine culture sent Start on Ceftriaxone, IV, de-escalate with cultures Qualifiers: Urinary tract infection type: acute cystitis Hematuria presence: with hematuria Qualified Code(s): N30.01 - Acute cystitis with hematuria (9) BPH (benign prostatic hyperplasia) Current Visit: Yes Status: Chronic Assessment and plan: Start on tamsulosin po Qualifiers: Lower urinary tract symptom presence: symptoms present Lower urinary tract symptom detail: weak urinary stream Qualified Code(s): N40.1 - Benign prostatic hyperplasia with lower urinary tract symptoms; R39.12 - Poor urinary stream; R39.12 - Poor urinary stream - Time Spent With Patient Total time spent is greater than 50% in coordination of care (as documented) at patient's floor/unit and/or counseling patient:
[2017-11-20] MEDS ORDERED: CefTRIAXone 1,000 MG VIAL IM ONE (23:44)
[2017-11-21] MEDS ORDERED: cefTRIAXone 1,000 MG in Water for inj. (sterile) 20 ML 10 ML IVP ONE (01:12)
[2017-11-21] MEDS: 0.9 % Sodium Chloride 1,000 ML IVC SCH (06:01)
[2017-11-21 06:11] LABS: BUN/Creatinine Ratio 19 (6-26); Blood Urea Nitrogen 14 mg/dL (8-23); Calcium 8.5 mg/dL (8.6-10.3); Carbon Dioxide 25 mEq/L (23-29); Chloride 103 mEq/L (98-107); Glucose 80 mg/dL (70-105); Osmolality,Calculated 275 (280-300); Potassium 3.9 mEq/L (3.5-5.1); Sodium 133 mEq/L (136-145); eGFR For African Americans > 60 (> 60); eGFR For Non-African Americans > 60 (> 60)
[2017-11-21 06:28] LABS: Basophils % 0.6 %; Eosinophils # 0.2 K/mcL (0.0-0.6); Hematocrit 26.4 % (37.5-50.1); Immature Granulocytes % 0.4 % (0-4); Lymphocytes # 1.4 K/mcL (0.6-4.6); Lymphocytes % 21.3 %; Mean Corpuscular HGB Conc 34.1 g/dL (31.6-35.5); Mean Corpuscular Hemoglobin 30.4 pg (28.0-33.3); Mean Corpuscular Volume 89.2 fL (83.0-100.0); Mean Platelet Volume 8.8 fL (9.4-12.4); Monocytes # 0.7 K/mcL (0.0-1.3); Monocytes % 10.9 %; Neutrophils # 4.3 K/mcL (1.6-8.9); Platelet Count 227 K/mcL (140-400); Red Blood Count 2.96 M/mcL (4.19-5.50); Red Cell Distribution Width 13.5 % (11.5-14.5); Segmented Neutrophils % 63.8 %
[2017-11-21] MEDS: Famotidine 20 MG TABLET PO SCH (09:33)
[2017-11-21] MEDS: Multivit/Ca/Min/Fe/FA 1 TAB TABLET PO SCH (09:33)
[2017-11-21] MEDS: Fluticasone Propionate Nasal 50 MCG/SPRAY BOTTLE NS SCH (09:33)
[2017-11-21] MEDS: ALPRAZolam 1 MG TABLET PO SCH ×2 (09:33→20:47)
[2017-11-21] MEDS: Budesonide/Formoterol 80/4.5 MDI IH SCH ×2 (10:13→20:08)
--- NOTE | 2017-11-21 11:34 | Urology - Consult Note ---
Date of Encounter: 11/21/17 Time of Encounter: 11:32 - Assessment and Plan (1) Gross hematuria Current Visit: Yes Status: Acute Assessment and plan: Although difficult to tell on the CT scan I do suspect his gross hematuria may be from a bladder tumor. Much of the CT findings were clot based on my procedure and his voided clot volume however an underlying tumor is very possible. We also discussed that the bleeding may be from BPH. I placed a hematuria catheter. Irrigated clot. Will start CBI. No need for urgent urologic intervention at this time. We will usually proceed with surgical intervention as a outpatient if the patient stabilizes however it is possible he will require intervention in the hospital. We will follow closely including watching his hemoglobin and CBI demands. (2) Mass of urinary bladder Current Visit: Yes Status: Acute Assessment and plan: Unable to tell if the CT findings represent all clot or an underlying tumor. Will eventually require cystoscopy. If a mass is present this is likely urothelial malignancy Urology CN:HPI Consult date: 11/21/17 History of present illness: 77-year-old male admitted with gross hematuria. He states his been really bad for the last week or so. He has had intermittent gross hematuria for 4-5 months. No significant weight loss. No pain. Admits to long history of smoking in the past. No major urinary symptoms. Minor hesitancy. He has been passing clots in the last week. Past Med Surg Social Fam HX - Past Medical History Medical history: asthma, COPD, GERD Psychiatric history: no psych history - Past Surgical History Surgical History: no surgical history - Social History Smoking Status: Former smoker Smokeless Tobacco Status: No Alcohol use: none Drug use: none - Family History Sister Hx Family Cancer: Yes (Breast cancer) Brother Hx Family Genitourinary Disorders: Yes (Prostate issues) Medications and Allergies ALPRAZolam [Xanax 1 MG Tablet] 1 mg PO BID 10/08/17 [History] Albuterol Sulfate [Ventolin Hfa] 2 puff IH Q4H PRN 10/08/17 [History] Fluticasone Propionate Nasal [Flonase] 2 spr NS DAILY 10/08/17 [History] Montelukast [Singulair] 10 mg PO DAILY 10/08/17 [History] Ranitidine HCl [Zantac] 300 mg PO DAILY 10/08/17 [History] Fluticasone/Salmeterol [Advair 250-50 Diskus] 1 puff IH BID 11/20/17 [History] Guaifenesin [Guaifenesin ER] 1,200 mg PO DAILY PRN 11/20/17 [History] Multivitamin [One Daily Essential] 1 tab PO DAILY 11/20/17 [History] 3 Allergy/AdvReac Type Severity Reaction Status Date / Time tiotropium AdvReac Vomiting Verified 11/20/17 18:24 [From Spiriva with HandiHaler] Review of Systems - Constitutional no chills, no fever(s) - EENT Nose, mouth and throat: no dizziness, no headache(s), no sore throat - Cardiovascular no chest pain, no dyspnea, no leg edema - Respiratory no cough - Gastrointestinal no abdominal pain, no nausea, no vomiting - Genitourinary change in urinary stream, difficulty urinating, hematuria - Musculoskeletal no back pain - Integumentary no erythema - Neurological no confusion - Psychiatric no anxiety - Hematologic/Lymphatic no easy bleeding - Allergic/Immunologic no throat swelling Exam Initial Vital Signs Temp Pulse Resp BP Pulse Ox 98.2 F 104 18 148/66 94 11/20/17 14:36 11/20/17 14:36 11/20/17 14:36 11/20/17 14:36 11/20/17 14:36 - General physical appearance Present: well developed, no distress - Eyes Present: PERRL, conjunctiva is clear - ENT Present: normal nares, no hearing loss - Neck Present: no masses, no lymphadenopathy - Respiratory Present: normal respiratory effort, clear to auscultation - Cardiovascular Cardiovascular exam IM: tachycardia - Abdomen Abdomen: Present: soft, suprapubic tenderness. Absent: masses - Genitourinary normal penis with no external lesions - Rectum Rectum: Absent: normal sphincter tone - Integumentary Absent: no rash - Neurologic Absent: normal coordination, disoriented, confused - Additional Findings Urine visualized. Dark red. Urology Results - Labs 11/21/17 05:17 11/21/17 05:17 Abnormal lab results RBC 2.96 M/mcL (4.19-5.50) L 11/21/17 05:17 Hgb 9.0 g/dL (12.9-16.9) L D 11/21/17 05:17 Hct 26.4 % (37.5-50.1) L 11/21/17 05:17 MPV 8.8 fL (9.4-12.4) L 11/21/17 05:17 Sodium 133 mEq/L (136-145) L 11/21/17 05:17 Calculated Osmolality 275 (280-300) L 11/21/17 05:17 Calcium 8.5 mg/dL (8.6-10.3) L 11/21/17 05:17 Urine Color Red (Yellow) A 11/20/17 20:19 Urine Clarity Turbid (Clear) A 11/20/17 20:19 Urine Protein >=300 mg/dL (Neg-Trace) H 11/20/17 20:19 Urine Glucose (UA) 100 mg/dL (Normal) H 11/20/17 20:19 Urine Ketones 40 mg/dL (Negative) H 11/20/17 20:19 Urine Blood Large (Negative) H 11/20/17 20:19 Urine Nitrite Positive (Negative) A 11/20/17 20:19 Urine Bilirubin Large (Negative) H 11/20/17 20:19 Urine Urobilinogen 4.0 mg/dL (Normal) H 11/20/17 20:19 Ur Leukocyte Esterase Large (Negative) H 11/20/17 20:19 Diabetes panel 11/21/17 Range/Units 05:17 Sodium 133 L (136-145) mEq/L Potassium 3.9 (3.5-5.1) mEq/L Chloride 103 (98-107) mEq/L Carbon Dioxide 25 (23-29) mEq/L BUN 14 (8-23) mg/dL Creatinine 0.73 (0.70-1.30) mg/dL Glucose 80 (70-105) mg/dL Calcium 8.5 L (8.6-10.3) mg/dL Calcium panel 11/21/17 Range/Units 05:17 Calcium 8.5 L (8.6-10.3) mg/dL Pituitary panel 11/21/17 Range/Units 05:17 Sodium 133 L (136-145) mEq/L Potassium 3.9 (3.5-5.1) mEq/L Chloride 103 (98-107) mEq/L Carbon Dioxide 25 (23-29) mEq/L BUN 14 (8-23) mg/dL Creatinine 0.73 (0.70-1.30) mg/dL Glucose 80 (70-105) mg/dL Calcium 8.5 L (8.6-10.3) mg/dL Adrenal panel 11/21/17 Range/Units 05:17 Sodium 133 L (136-145) mEq/L Potassium 3.9 (3.5-5.1) mEq/L Chloride 103 (98-107) mEq/L Carbon Dioxide 25 (23-29) mEq/L BUN 14 (8-23) mg/dL Creatinine 0.73 (0.70-1.30) mg/dL Glucose 80 (70-105) mg/dL Calcium 8.5 L (8.6-10.3) mg/dL All other labs normal. Procedures:Urology - Bladder Irrigation/Clot Evacuation Consent obtained: verbal consent Time out performed: Yes Irrigation: saline Amount of Clot: 100-200 mL of dark black clot irrigated Patient tolerated procedure: well Continuous Bladder Irrigation: Yes Complications: none Additional comments: I placed a 24-Danish hematuria catheter. He did require dilation of the urethral meatus with a Elena dilator to place the catheter. Patient tolerated well. No complications were noted. Consult Discharge Plan - Plan Referrals: Angel Harrell MD [Primary Care Provider] -
--- NOTE | 2017-11-21 11:39 | Internal Med Progress Note ---
<Isela Jacinto - Last Filed: 11/21/17 12:08> Date of Encounter: 11/21/17 Time of Encounter: 11:35 - Assessment and plan (1) Hematuria Current Visit: Yes Status: Acute Assessment and plan: Suspicion bleeding due to bladder tumor vs clot vs BPH Urology placed hematuria catheter, continuous bladder irrigation started No urgent surgical intervention required at this time per urology Qualifiers: Hematuria type: gross Qualified Code(s): R31.0 - Gross hematuria (2) Mass of urinary bladder Current Visit: Yes Status: Acute Assessment and plan: CT abdomen pelvis shows a density in the bladder measuring up to 6.6 x 3.4 cm in diameter, possibly a hematoma but neoplasm must be ruled out; prostatomegaly Urology following Continuous bladder irrigation started Per urology, will require cystoscopy--inpatient vs outpatient to be determined Suspicion for bladder tumor given history of tobacco use (3) UTI (urinary tract infection) Current Visit: Yes Status: Acute Assessment and plan: Suspected Seen by PCP a few days ago with complaints of dysuria and was prescribed ceftriaxone Urinalysis was positive for large amounts of nitrites and leukocyte esterase Urine culture pending Continue Ceftriaxone IV, de-escalate when urine culture results Qualifiers: Urinary tract infection type: acute cystitis Hematuria presence: with hematuria Qualified Code(s): N30.01 - Acute cystitis with hematuria (4) GERD (gastroesophageal reflux disease) Current Visit: Yes Status: Chronic Assessment and plan: Continue home med famotidine Qualifiers: Esophagitis presence: without esophagitis Qualified Code(s): K21.9 - Gastro -esophageal reflux disease without esophagitis (5) Hyponatremia Current Visit: Yes Status: Acute Assessment and plan: IV normal saline Replace as needed Recheck with AM labs (6) COPD (chronic obstructive pulmonary disease) Current Visit: Yes Status: Chronic Assessment and plan: Not exacerbated Saturating 96% on room air DuoNeb's when necessary Continue home Symbicort and albuterol inhaler Qualifiers: COPD type: unspecified COPD Qualified Code(s): J44.9 - Chronic obstructive pulmonary disease, unspecified (7) Anxiety Current Visit: Yes Status: Chronic Assessment and plan: continue home meds (8) BPH (benign prostatic hyperplasia) Current Visit: Yes Status: Chronic Assessment and plan: Prostatomegaly noted on CT abd pelvis Continue tamsulosin Qualifiers: Lower urinary tract symptom presence: symptoms present Lower urinary tract symptom detail: weak urinary stream Qualified Code(s): N40.1 - Benign prostatic hyperplasia with lower urinary tract symptoms; R39.12 - Poor urinary stream; R39.12 - Poor urinary stream (9) DVT prophylaxis Current Visit: Yes Status: Acute Assessment and plan: EPCDs for now, hold off on anticoagulation due to gross hematuria and anemia (10) Blood loss anemia Current Visit: Yes Status: Acute Assessment and plan: Likely secondary to hematuria Patient reportedly having intermittent gross hematuria for 4-5 months, over the last week has been passing clots Hemoglobin 9.0 today, dropped from 11.4 yesterday October 2017 hemoglobin 13.0 Follow H/H with morning labs - Time Spent With Patient Total time spent is greater than 50% in coordination of care (as documented) at patient's floor/unit and/or counseling patient: - Subjective Interval history: Seen and examined this morning at bedside. Patient is resting comfortably in his bed and reports sleeping well last night. He has no complaints today. He denies fever, chills, nausea, vomiting, chest pain, shortness of breath, abdominal pain, suprapubic pain. - Constitutional Vitals: Temp Pulse Resp BP Pulse Ox 97.8 F 85 18 90/50 93 11/21/17 10:36 11/21/17 10:36 11/21/17 10:36 11/21/17 10:36 11/21/17 10:36 General appearance: Present: A&O X 3, pleasant, no acute distress - Other Additional findings: General: Thin, No acute distress, pleasant HEENT: PERRL/ EOMI, moist mucus membranes, non traumatic, normocephalic Neck: Supple Cardio: RRR, no murmurs, S1/S2 Pulm: CTAB, no wheezing, diminished airflow bilateral apices, Normal respiratory effort. : Martinez catheter Abdomen: soft, nontender, BS+, no rigidity, guarding, distention Extremities: No lower extremitiy edema, spontaneously moves extremities Back: Normal on inspection Neuro: AAOx3, no focal neurological defecit, mentation intact Psych: Appropriate mood and affect. Answers questions appropriately. Cooperative with exam Internal Medicine: Result - Labs CBC & Chem 7: 11/21/17 05:17 11/21/17 05:17 Labs: Short CBC 11/21/17 Range/Units 05:17 WBC 6.7 (4.3-11.1) K/mcL Hgb 9.0 L D (12.9-16.9) g/dL Hct 26.4 L (37.5-50.1) % Plt Count 227 (140-400) K/mcL Neutrophils # 4.3 (1.6-8.9) K/mcL BMP 11/21/17 05:17 Sodium 133 L Potassium 3.9 Chloride 103 Carbon Dioxide 25 BUN 14 Creatinine 0.73 Glucose 80 Calcium 8.5 L - ABG Interpretation ABG results: PT/INR, D-dimer PT 12.0 Seconds (9.4-12.1) 11/20/17 15:46 Consult Discharge Plan - Plan Referrals: Angel Harrell MD [Primary Care Provider] - <Carmine Varela - Last Filed: 11/21/17 13:24> Date of Encounter: 11/21/17 - Assessment and plan (1) Hyponatremia Current Visit: Yes Status: Acute (2) GERD (gastroesophageal reflux disease) Current Visit: Yes Status: Chronic Qualifiers: Esophagitis presence: without esophagitis Qualified Code(s): K21.9 - Gastro -esophageal reflux disease without esophagitis (3) Mass of urinary bladder Current Visit: Yes Status: Acute (4) COPD (chronic obstructive pulmonary disease) Current Visit: Yes Status: Chronic Qualifiers: COPD type: unspecified COPD Qualified Code(s): J44.9 - Chronic obstructive pulmonary disease, unspecified (5) Anxiety Current Visit: Yes Status: Chronic (6) Hematuria Current Visit: Yes Status: Acute Qualifiers: Hematuria type: gross Qualified Code(s): R31.0 - Gross hematuria (7) UTI (urinary tract infection) Current Visit: Yes Status: Acute Qualifiers: Urinary tract infection type: acute cystitis Hematuria presence: with hematuria Qualified Code(s): N30.01 - Acute cystitis with hematuria (8) BPH (benign prostatic hyperplasia) Current Visit: Yes Status: Chronic Qualifiers: Lower urinary tract symptom presence: symptoms present Lower urinary tract symptom detail: weak urinary stream Qualified Code(s): N40.1 - Benign prostatic hyperplasia with lower urinary tract symptoms; R39.12 - Poor urinary stream; R39.12 - Poor urinary stream (9) DVT prophylaxis Current Visit: Yes Status: Acute (10) Blood loss anemia Current Visit: Yes Status: Acute - Time Spent With Patient Total time spent is greater than 50% in coordination of care (as documented) at patient's floor/unit and/or counseling patient: - Constitutional Vitals: Temp Pulse Resp BP Pulse Ox 97.8 F 85 18 90/50 93 11/21/17 10:36 11/21/17 10:36 11/21/17 10:36 11/21/17 10:36 11/21/17 10:36 Internal Medicine: Result - Labs CBC & Chem 7: 11/21/17 05:17 11/21/17 05:17 Labs: Short CBC 11/21/17 Range/Units 05:17 WBC 6.7 (4.3-11.1) K/mcL Hgb 9.0 L D (12.9-16.9) g/dL Hct 26.4 L (37.5-50.1) % Plt Count 227 (140-400) K/mcL Neutrophils # 4.3 (1.6-8.9) K/mcL BMP 11/21/17 05:17 Sodium 133 L Potassium 3.9 Chloride 103 Carbon Dioxide 25 BUN 14 Creatinine 0.73 Glucose 80 Calcium 8.5 L - ABG Interpretation ABG results: PT/INR, D-dimer PT 12.0 Seconds (9.4-12.1) 11/20/17 15:46 - Attending Attestation I examined this patient and my medical decision-making was reviewed with the Resident Physician Dr. Jacinto. I agree with the documented findings, disposition and treatment plan as described except to the extent set forth below. Mr. Johnston is a 77 year old male with past medical history of COPD and GERD, who presented to the ER for gross hematuria with blood clots. He denied any CP / SOB. Gen: A, A, O x 3 Chest: Diminished BS b/l Heart: S1S2+ RRR No murmurs Abd: Soft, NT a/p 1. Acute gross hematuria 2. Acute blood loss anemia cont trending on Hb transfuse PRBC on PRN basis Urology on board CBI for now possible cystoscopy as an out pt
[2017-11-21] MEDS: Acetaminophen 325 MG TABLET PO PRN (20:47)
[2017-11-22 05:51] LABS: Basophils % 0.4 %; Eosinophils # 0.2 K/mcL (0.0-0.6); Hematocrit 25.5 % (37.5-50.1); Hemoglobin 8.7 g/dL (12.9-16.9); Immature Granulocytes % 0.2 % (0-4); Lymphocytes # 1.4 K/mcL (0.6-4.6); Lymphocytes % 14.7 %; Mean Corpuscular HGB Conc 34.1 g/dL (31.6-35.5); Mean Corpuscular Hemoglobin 30.6 pg (28.0-33.3); Mean Corpuscular Volume 89.8 fL (83.0-100.0); Mean Platelet Volume 8.8 fL (9.4-12.4); Monocytes % 10.4 %; Neutrophils # 6.8 K/mcL (1.6-8.9); Platelet Count 222 K/mcL (140-400); Red Blood Count 2.84 M/mcL (4.19-5.50); Red Cell Distribution Width 14.1 % (11.5-14.5); Segmented Neutrophils % 72.3 %
[2017-11-22 06:07] LABS: BUN/Creatinine Ratio 19 (6-26); Blood Urea Nitrogen 15 mg/dL (8-23); Calcium 8.7 mg/dL (8.6-10.3); Carbon Dioxide 26 mEq/L (23-29); Chloride 103 mEq/L (98-107); Glucose 87 mg/dL (70-105); Osmolality,Calculated 278 (280-300); Potassium 4.1 mEq/L (3.5-5.1); Sodium 134 mEq/L (136-145); eGFR For African Americans > 60 (> 60); eGFR For Non-African Americans > 60 (> 60)
[2017-11-22] MEDS: Budesonide/Formoterol 80/4.5 MDI IH SCH ×2 (07:53→19:45)
[2017-11-22] MEDS: ALPRAZolam 1 MG TABLET PO SCH ×2 (08:13→20:21)
[2017-11-22] MEDS: Famotidine 20 MG TABLET PO SCH (08:13)
[2017-11-22] MEDS: cefTRIAXone 1,000 MG in Water for inj. (sterile) 20 ML 10 ML IVP SCH (08:13)
[2017-11-22] MEDS: Multivit/Ca/Min/Fe/FA 1 TAB TABLET PO SCH (08:13)
[2017-11-22] MEDS: Fluticasone Propionate Nasal 50 MCG/SPRAY BOTTLE NS SCH (08:14)
--- NOTE | 2017-11-22 08:55 | Urology Progress Note ---
Date of Encounter: 11/22/17 Time of Encounter: 08:52 - Assessment and Plan (1) Gross hematuria Current Visit: Yes Status: Acute Assessment and plan: still present but slowing. will reassess in AM. probably will proceed to OR tomorrow unless complete resolution of hematuria. plan for clot evacuation/ TURBT if tumor is present. (2) Mass of urinary bladder Current Visit: Yes Status: Acute Progress Note Subjective: feels better Narrative: still with some hematuria overnight. Objective Initial Vital Signs Temp Pulse Resp BP Pulse Ox 98.2 F 104 18 148/66 94 11/20/17 14:36 11/20/17 14:36 11/20/17 14:36 11/20/17 14:36 11/20/17 14:36 - General physical appearance Present: no distress - Abdomen Present: soft - Additional Exam urine light/moderate hematuria off CBI irrigates some clot - appeared old. CBI running much clearer. - Labs 11/22/17 04:48 11/22/17 04:48 Diabetes panel 11/22/17 Range/Units 04:48 Sodium 134 L (136-145) mEq/L Potassium 4.1 (3.5-5.1) mEq/L Chloride 103 (98-107) mEq/L Carbon Dioxide 26 (23-29) mEq/L BUN 15 (8-23) mg/dL Creatinine 0.81 (0.70-1.30) mg/dL Glucose 87 (70-105) mg/dL Calcium 8.7 (8.6-10.3) mg/dL Calcium panel 11/22/17 Range/Units 04:48 Calcium 8.7 (8.6-10.3) mg/dL Pituitary panel 11/22/17 Range/Units 04:48 Sodium 134 L (136-145) mEq/L Potassium 4.1 (3.5-5.1) mEq/L Chloride 103 (98-107) mEq/L Carbon Dioxide 26 (23-29) mEq/L BUN 15 (8-23) mg/dL Creatinine 0.81 (0.70-1.30) mg/dL Glucose 87 (70-105) mg/dL Calcium 8.7 (8.6-10.3) mg/dL Adrenal panel 11/22/17 Range/Units 04:48 Sodium 134 L (136-145) mEq/L Potassium 4.1 (3.5-5.1) mEq/L Chloride 103 (98-107) mEq/L Carbon Dioxide 26 (23-29) mEq/L BUN 15 (8-23) mg/dL Creatinine 0.81 (0.70-1.30) mg/dL Glucose 87 (70-105) mg/dL Calcium 8.7 (8.6-10.3) mg/dL Consult Discharge Plan - Plan Referrals: Angel Harrell MD [Primary Care Provider] -
--- NOTE | 2017-11-22 09:38 | Internal Med Progress Note ---
<Isela Jacinto - Last Filed: 11/22/17 14:06> Date of Encounter: 11/22/17 Time of Encounter: 09:36 - Assessment and plan (1) Hematuria Current Visit: Yes Status: Acute Assessment and plan: Suspicion bleeding due to bladder tumor vs clot vs BPH Continues to have gross hematuria with clots, some improvement from yesterday Urology to reassess in AM; likely going to OR tomorrow if hematuria hasn't totally resolved Qualifiers: Hematuria type: gross Qualified Code(s): R31.0 - Gross hematuria (2) Mass of urinary bladder Current Visit: Yes Status: Acute Assessment and plan: CT abdomen pelvis shows a density in the bladder measuring up to 6.6 x 3.4 cm in diameter, possibly a hematoma but neoplasm must be ruled out; prostatomegaly Suspicion for bladder tumor given history of tobacco use Continue CBI Urology plans to reassess in AM, likely OR tomorrow if hematuria hasn't completely resolved (3) UTI (urinary tract infection) Current Visit: Yes Status: Acute Assessment and plan: Suspected Seen by PCP a few days ago with complaints of dysuria and was prescribed ceftriaxone White count WNL and afebrile Preliminary urine culture shows no significant growth, final read pending Continue Ceftriaxone IV, de-escalate or d/c once final urine culture results Qualifiers: Urinary tract infection type: acute cystitis Hematuria presence: with hematuria Qualified Code(s): N30.01 - Acute cystitis with hematuria (4) GERD (gastroesophageal reflux disease) Current Visit: Yes Status: Chronic Assessment and plan: Continue home med famotidine Qualifiers: Esophagitis presence: without esophagitis Qualified Code(s): K21.9 - Gastro -esophageal reflux disease without esophagitis (5) Hyponatremia Current Visit: Yes Status: Acute Assessment and plan: Mildy hyponatremic at 134 Continue IV normal saline Replace as needed (6) COPD (chronic obstructive pulmonary disease) Current Visit: Yes Status: Chronic Assessment and plan: Stable, not exacerbated Maintaining O2 sat upper 90's on room air Continue Symbicort and albuterol inhaler DuoNebs PRN Qualifiers: COPD type: unspecified COPD Qualified Code(s): J44.9 - Chronic obstructive pulmonary disease, unspecified (7) Anxiety Current Visit: Yes Status: Chronic Assessment and plan: continue home meds (8) BPH (benign prostatic hyperplasia) Current Visit: Yes Status: Chronic Assessment and plan: Prostatomegaly noted on CT abd pelvis Continue tamsulosin Qualifiers: Lower urinary tract symptom presence: symptoms present Lower urinary tract symptom detail: weak urinary stream Qualified Code(s): N40.1 - Benign prostatic hyperplasia with lower urinary tract symptoms; R39.12 - Poor urinary stream; R39.12 - Poor urinary stream (9) DVT prophylaxis Current Visit: Yes Status: Acute Assessment and plan: EPCDs for now, hold off on anticoagulation due to gross hematuria and anemia (10) Blood loss anemia Current Visit: Yes Status: Acute Assessment and plan: Likely secondary to hematuria from suspected bladder mass Hemoglobin 8.7 today Follow H/H - Time Spent With Patient Total time spent is greater than 50% in coordination of care (as documented) at patient's floor/unit and/or counseling patient: - Subjective Interval history: Seen and examined this morning at bedside. Patient is sitting comfortably in his bed and reports difficulty sleeping well last night because he was worried about accidentally messing up his arias/CBI lines. His only complaint being discomfort and some bleeding at urethral meatus. He denies fever, chills, nausea, vomiting, chest pain, shortness of breath, abdominal pain, suprapubic pain. - Constitutional Vitals: Temp Pulse Resp BP Pulse Ox 97.6 F 74 16 119/65 91 11/22/17 08:29 11/22/17 08:29 11/22/17 08:29 11/22/17 08:29 11/22/17 08:29 General appearance: Present: A&O X 3, pleasant, no acute distress - Other Additional findings: General: pleasant, thin, No acute distress, resting comfortably in bed HEENT: PERRL/ EOMI, moist mucus membranes, no scleral icterus Neck: Supple, FROM Cardio: RRR, no murmurs, S1/S2 Pulm: diminished airflow bilaterally, CTAB, no wheezing, rhonchi, rales. Normal respiratory effort. Abdomen: soft, nontender, BS+, nondistended : arias catheter, hematuria with some clots in arias bag Extremities: No lower extremitiy edema, no calf tenderness, DP pulses 2+ Back: normal on inspection Neuro: AAOx3, no focal neurological deficit, mentation intact, CN II-XII intact grossly MSK: spontaneous movement of extremities Psych: Appropriate mood and affect. Answers questions appropriately. Cooperative with exam Internal Medicine: Result - Labs CBC & Chem 7: 11/22/17 04:48 11/22/17 04:48 Labs: Short CBC 11/22/17 Range/Units 04:48 WBC 9.5 (4.3-11.1) K/mcL Hgb 8.7 L (12.9-16.9) g/dL Hct 25.5 L (37.5-50.1) % Plt Count 222 (140-400) K/mcL Neutrophils # 6.8 (1.6-8.9) K/mcL BMP 11/22/17 04:48 Sodium 134 L Potassium 4.1 Chloride 103 Carbon Dioxide 26 BUN 15 Creatinine 0.81 Glucose 87 Calcium 8.7 - ABG Interpretation ABG results: PT/INR, D-dimer PT 12.0 Seconds (9.4-12.1) 11/20/17 15:46 Consult Discharge Plan - Plan Referrals: Angel Harrell MD [Primary Care Provider] - <Carmine Varela - Last Filed: 11/22/17 15:06> Date of Encounter: 11/22/17 - Assessment and plan (1) Hyponatremia Current Visit: Yes Status: Acute (2) GERD (gastroesophageal reflux disease) Current Visit: Yes Status: Chronic Qualifiers: Esophagitis presence: without esophagitis Qualified Code(s): K21.9 - Gastro -esophageal reflux disease without esophagitis (3) Mass of urinary bladder Current Visit: Yes Status: Acute (4) COPD (chronic obstructive pulmonary disease) Current Visit: Yes Status: Chronic Qualifiers: COPD type: unspecified COPD Qualified Code(s): J44.9 - Chronic obstructive pulmonary disease, unspecified (5) Anxiety Current Visit: Yes Status: Chronic (6) Hematuria Current Visit: Yes Status: Acute Qualifiers: Hematuria type: gross Qualified Code(s): R31.0 - Gross hematuria (7) UTI (urinary tract infection) Current Visit: Yes Status: Acute Qualifiers: Urinary tract infection type: acute cystitis Hematuria presence: with hematuria Qualified Code(s): N30.01 - Acute cystitis with hematuria (8) BPH (benign prostatic hyperplasia) Current Visit: Yes Status: Chronic Qualifiers: Lower urinary tract symptom presence: symptoms present Lower urinary tract symptom detail: weak urinary stream Qualified Code(s): N40.1 - Benign prostatic hyperplasia with lower urinary tract symptoms; R39.12 - Poor urinary stream; R39.12 - Poor urinary stream (9) DVT prophylaxis Current Visit: Yes Status: Acute (10) Blood loss anemia Current Visit: Yes Status: Acute - Time Spent With Patient Total time spent is greater than 50% in coordination of care (as documented) at patient's floor/unit and/or counseling patient: - Constitutional Vitals: Temp Pulse Resp BP Pulse Ox 97.7 F 94 18 101/57 91 11/22/17 12:43 11/22/17 12:43 11/22/17 12:43 11/22/17 12:43 11/22/17 12:43 Internal Medicine: Result - Labs CBC & Chem 7: 11/22/17 04:48 11/22/17 04:48 Labs: Short CBC 11/22/17 Range/Units 04:48 WBC 9.5 (4.3-11.1) K/mcL Hgb 8.7 L (12.9-16.9) g/dL Hct 25.5 L (37.5-50.1) % Plt Count 222 (140-400) K/mcL Neutrophils # 6.8 (1.6-8.9) K/mcL BMP 11/22/17 04:48 Sodium 134 L Potassium 4.1 Chloride 103 Carbon Dioxide 26 BUN 15 Creatinine 0.81 Glucose 87 Calcium 8.7 - ABG Interpretation ABG results: PT/INR, D-dimer PT 12.0 Seconds (9.4-12.1) 11/20/17 15:46 - Attending Attestation I examined this patient and my medical decision-making was reviewed with the Resident Physician Dr. Jacinto. I agree with the documented findings, disposition and treatment plan as described except to the extent set forth below. Mr. Johnston is a 77 year old male with past medical history of COPD and GERD, who presented to the ER for gross hematuria with blood clots. He denied any CP / SOB. Still has gross hematuria Gen: A, A, O x 3 Chest: Diminished BS b/l Heart: S1S2+ RRR No murmurs Abd: Soft, NT a/p 1. Acute gross hematuria 2. Acute blood loss anemia cont trending on Hb His Hb @ 8.7 today transfuse PRBC on PRN basis if Hb < 7.0 Urology on board CBI for now possible cystoscopy in AM 3. Severe protein caloric malnutrition Hardware Installation Coordinator consulted
[2017-11-22] MEDS ORDERED: Ipratropium/Albuterol Neb 3 ML IH PRN (10:15)
[2017-11-22] MEDS ORDERED: Simethicone 80 MG TAB.CHEW PO PRN (13:32)
[2017-11-22] MEDS: Acetaminophen 325 MG TABLET PO PRN ×2 (17:21→23:53)
[2017-11-22] MEDS: Hyoscyamine SL 0.125 MG TAB.SUBL SL PRN ×2 (17:21→23:59)
[2017-11-23] MEDS ORDERED: Lidocaine 4% CREAM (LMX) 5 GM TP PRN (01:24)
[2017-11-23] MEDS ORDERED: Lidocaine Jelly 11 ml Syringe TP ONE (02:39)
[2017-11-23] MEDS ORDERED: ALPRAZolam 1 MG TABLET PO ONE (03:31)
[2017-11-23 05:11] LABS: Hematocrit 26.5 % (37.5-50.1); Mean Corpuscular Hemoglobin 30.5 pg (28.0-33.3); Mean Corpuscular Volume 89.8 fL (83.0-100.0); Platelet Count 228 K/mcL (140-400); Red Blood Count 2.95 M/mcL (4.19-5.50); Red Cell Distribution Width 14.4 % (11.5-14.5)
[2017-11-23 05:38] LABS: BUN/Creatinine Ratio 21 (6-26); Blood Urea Nitrogen 15 mg/dL (8-23); Calcium 9.2 mg/dL (8.6-10.3); Carbon Dioxide 27 mEq/L (23-29); Chloride 99 mEq/L (98-107); Glucose 98 mg/dL (70-105); Osmolality,Calculated 277 (280-300); Sodium 133 mEq/L (136-145); eGFR For African Americans > 60 (> 60); eGFR For Non-African Americans > 60 (> 60)
--- NOTE | 2017-11-23 05:56 | Urology Progress Note ---
Date of Encounter: 11/23/17 Time of Encounter: 05:54 - Assessment and Plan (1) Gross hematuria Current Visit: Yes Status: Acute Assessment and plan: will proceed to OR today for cystoscopy, possible TURBT/clot evac/fulguration. (2) Mass of urinary bladder Current Visit: Yes Status: Acute Progress Note Subjective: no new complaints Narrative: hematuria continues. Objective Initial Vital Signs Temp Pulse Resp BP Pulse Ox 98.2 F 104 18 148/66 94 11/20/17 14:36 11/20/17 14:36 11/20/17 14:36 11/20/17 14:36 11/20/17 14:36 - General physical appearance Present: no distress - Additional Exam liht to moderate drip and light transparent hematuria. - Labs 11/23/17 04:07 11/23/17 04:07 Diabetes panel 11/22/17 11/23/17 Range/Units 04:48 04:07 Sodium 134 L 133 L (136-145) mEq/L Potassium 4.1 4.0 (3.5-5.1) mEq/L Chloride 103 99 (98-107) mEq/L Carbon Dioxide 26 27 (23-29) mEq/L BUN 15 15 (8-23) mg/dL Creatinine 0.81 0.72 (0.70-1.30) mg/dL Glucose 87 98 (70-105) mg/dL Calcium 8.7 9.2 (8.6-10.3) mg/dL Calcium panel 11/22/17 11/23/17 Range/Units 04:48 04:07 Calcium 8.7 9.2 (8.6-10.3) mg/dL Pituitary panel 11/22/17 11/23/17 Range/Units 04:48 04:07 Sodium 134 L 133 L (136-145) mEq/L Potassium 4.1 4.0 (3.5-5.1) mEq/L Chloride 103 99 (98-107) mEq/L Carbon Dioxide 26 27 (23-29) mEq/L BUN 15 15 (8-23) mg/dL Creatinine 0.81 0.72 (0.70-1.30) mg/dL Glucose 87 98 (70-105) mg/dL Calcium 8.7 9.2 (8.6-10.3) mg/dL Adrenal panel 11/22/17 11/23/17 Range/Units 04:48 04:07 Sodium 134 L 133 L (136-145) mEq/L Potassium 4.1 4.0 (3.5-5.1) mEq/L Chloride 103 99 (98-107) mEq/L Carbon Dioxide 26 27 (23-29) mEq/L BUN 15 15 (8-23) mg/dL Creatinine 0.81 0.72 (0.70-1.30) mg/dL Glucose 87 98 (70-105) mg/dL Calcium 8.7 9.2 (8.6-10.3) mg/dL Consult Discharge Plan - Plan Referrals: Angel Harrell MD [Primary Care Provider] -
[2017-11-23] MEDS: Budesonide/Formoterol 80/4.5 MDI IH SCH ×2 (07:46→21:20)
[2017-11-23] MEDS: Hyoscyamine SL 0.125 MG TAB.SUBL SL PRN (08:01)
[2017-11-23] MEDS: Famotidine 20 MG TABLET PO SCH (08:02)
[2017-11-23] MEDS: ALPRAZolam 1 MG TABLET PO SCH ×2 (08:02→20:13)
[2017-11-23] MEDS: Multivit/Ca/Min/Fe/FA 1 TAB TABLET PO SCH (08:04)
[2017-11-23] MEDS: cefTRIAXone 1,000 MG in Water for inj. (sterile) 20 ML 10 ML IVP SCH (08:12)
[2017-11-23] MEDS: Fluticasone Propionate Nasal 50 MCG/SPRAY BOTTLE NS SCH (08:23)
--- NOTE | 2017-11-23 14:36 | Internal Med Progress Note ---
<Isela Jacinto - Last Filed: 11/23/17 16:49> Date of Encounter: 11/23/17 Time of Encounter: 10:00 - Assessment and plan (1) Hematuria Current Visit: Yes Status: Acute Assessment and plan: Continues to have gross hematuria Seen by urology this morning Per urology note, will proceed to OR today for cystoscopy and possible clot evacuation/fulguration/TURBT Qualifiers: Hematuria type: gross Qualified Code(s): R31.0 - Gross hematuria (2) Blood loss anemia Current Visit: Yes Status: Acute Assessment and plan: Likely secondary to hematuria from suspected bladder mass Hemoglobin stable, 9.0 this morning Follow H/H (3) Mass of urinary bladder Current Visit: Yes Status: Acute Assessment and plan: CT abdomen pelvis shows a density in the bladder measuring up to 6.6 x 3.4 cm in diameter, possibly a hematoma but neoplasm must be ruled out; prostatomegaly Suspicion for bladder tumor given history of tobacco use Seen by urology this morning Per urology note, will proceed to OR today for cystoscopy and possible clot evacuation/fulguration/TURBT (4) UTI (urinary tract infection) Current Visit: Yes Status: Acute Assessment and plan: No significant growth on urine culture, final result Continue Ceftriaxone IV for now, will stop antibiotic after surgery Qualifiers: Urinary tract infection type: acute cystitis Hematuria presence: with hematuria Qualified Code(s): N30.01 - Acute cystitis with hematuria (5) GERD (gastroesophageal reflux disease) Current Visit: Yes Status: Chronic Assessment and plan: Continue home med famotidine Qualifiers: Esophagitis presence: without esophagitis Qualified Code(s): K21.9 - Gastro -esophageal reflux disease without esophagitis (6) Hyponatremia Current Visit: Yes Status: Acute Assessment and plan: Mildly hyponatremic at 133 Replace as needed (7) COPD (chronic obstructive pulmonary disease) Current Visit: Yes Status: Chronic Assessment and plan: Stable Maintaining O2 sat upper 90's on room air Continue Symbicort and albuterol inhaler DuoNebs PRN Qualifiers: COPD type: unspecified COPD Qualified Code(s): J44.9 - Chronic obstructive pulmonary disease, unspecified (8) Anxiety Current Visit: Yes Status: Chronic Assessment and plan: continue home dose xanax 1mg PO BID (9) BPH (benign prostatic hyperplasia) Current Visit: Yes Status: Chronic Assessment and plan: Prostatomegaly noted on CT abd pelvis Continue tamsulosin Qualifiers: Lower urinary tract symptom presence: symptoms present Lower urinary tract symptom detail: weak urinary stream Qualified Code(s): N40.1 - Benign prostatic hyperplasia with lower urinary tract symptoms; R39.12 - Poor urinary stream; R39.12 - Poor urinary stream (10) DVT prophylaxis Current Visit: Yes Status: Acute Assessment and plan: EPCDs for now, hold off on anticoagulation due to gross hematuria and anemia (11) Protein-calorie malnutrition, severe Current Visit: Yes Status: Acute - Time Spent With Patient Total time spent is greater than 50% in coordination of care (as documented) at patient's floor/unit and/or counseling patient: - Subjective Interval history: Seen and examined this morning at bedside. Pt states he was given his morning dose of Xanax and has been able to get some sleep since then. He endorses no complaints today. He denies fever, chills, nausea, vomiting, chest pain, shortness of breath, abdominal pain, suprapubic pain. - Constitutional Vitals: Temp Pulse Resp BP Pulse Ox 97.9 F 72 16 105/64 91 11/23/17 11:44 11/23/17 11:44 11/23/17 11:44 11/23/17 11:44 11/23/17 11:44 General appearance: Present: A&O X 3, pleasant, no acute distress - Other Additional findings: General: thin, No acute distress, somnolent HEENT: Normocephalic and atraumatic ,EOMI, moist mucus membranes, no scleral icterus Neck: Supple, FROM Cardio: RRR, no murmurs, S1/S2 Pulm: diminished airflow bilaterally, CTAB, no wheezing or rhonchi, Normal respiratory effort. Abdomen: soft, nontender, BS+, nondistended : No suprapubic tenderness, arias catheter with CBI, hematuria in arias bag Extremities: No lower extremitiy edema, no calf tenderness, DP pulses 2+ Neuro: Alert on exam, no focal neurological deficit, mentation intact, CN II- XII intact grossly MSK: spontaneous movement of extremities Psych: Answers questions appropriately. Cooperative with exam Internal Medicine: Result - Labs CBC & Chem 7: 11/23/17 04:07 11/23/17 04:07 Labs: Short CBC 11/23/17 Range/Units 04:07 WBC 10.0 (4.3-11.1) K/mcL Hgb 9.0 L (12.9-16.9) g/dL Hct 26.5 L (37.5-50.1) % Plt Count 228 (140-400) K/mcL BMP 11/23/17 04:07 Sodium 133 L Potassium 4.0 Chloride 99 Carbon Dioxide 27 BUN 15 Creatinine 0.72 Glucose 98 Calcium 9.2 - ABG Interpretation ABG results: PT/INR, D-dimer PT 12.0 Seconds (9.4-12.1) 11/20/17 15:46 Consult Discharge Plan - Plan Referrals: Angel Harrell MD [Primary Care Provider] - <Carmine Varela - Last Filed: 11/23/17 17:33> Date of Encounter: 11/23/17 - Assessment and plan (1) Hyponatremia Current Visit: Yes Status: Acute (2) GERD (gastroesophageal reflux disease) Current Visit: Yes Status: Chronic Qualifiers: Esophagitis presence: without esophagitis Qualified Code(s): K21.9 - Gastro -esophageal reflux disease without esophagitis (3) Mass of urinary bladder Current Visit: Yes Status: Acute (4) COPD (chronic obstructive pulmonary disease) Current Visit: Yes Status: Chronic Qualifiers: COPD type: unspecified COPD Qualified Code(s): J44.9 - Chronic obstructive pulmonary disease, unspecified (5) Anxiety Current Visit: Yes Status: Chronic (6) Hematuria Current Visit: Yes Status: Acute Qualifiers: Hematuria type: gross Qualified Code(s): R31.0 - Gross hematuria (7) UTI (urinary tract infection) Current Visit: Yes Status: Acute Qualifiers: Urinary tract infection type: acute cystitis Hematuria presence: with hematuria Qualified Code(s): N30.01 - Acute cystitis with hematuria (8) BPH (benign prostatic hyperplasia) Current Visit: Yes Status: Chronic Qualifiers: Lower urinary tract symptom presence: symptoms present Lower urinary tract symptom detail: weak urinary stream Qualified Code(s): N40.1 - Benign prostatic hyperplasia with lower urinary tract symptoms; R39.12 - Poor urinary stream; R39.12 - Poor urinary stream (9) DVT prophylaxis Current Visit: Yes Status: Acute (10) Blood loss anemia Current Visit: Yes Status: Acute (11) Protein-calorie malnutrition, severe Current Visit: Yes Status: Acute - Time Spent With Patient Total time spent is greater than 50% in coordination of care (as documented) at patient's floor/unit and/or counseling patient: - Constitutional Vitals: Temp Pulse Resp BP Pulse Ox 97.6 F 92 14 108/64 98 11/23/17 17:25 11/23/17 17:25 11/23/17 17:25 11/23/17 17:25 11/23/17 17:25 Internal Medicine: Result - Labs CBC & Chem 7: 11/23/17 04:07 11/23/17 04:07 Labs: Short CBC 11/23/17 Range/Units 04:07 WBC 10.0 (4.3-11.1) K/mcL Hgb 9.0 L (12.9-16.9) g/dL Hct 26.5 L (37.5-50.1) % Plt Count 228 (140-400) K/mcL BMP 11/23/17 04:07 Sodium 133 L Potassium 4.0 Chloride 99 Carbon Dioxide 27 BUN 15 Creatinine 0.72 Glucose 98 Calcium 9.2 - ABG Interpretation ABG results: PT/INR, D-dimer PT 12.0 Seconds (9.4-12.1) 11/20/17 15:46 - Attending Attestation I examined this patient and my medical decision-making was reviewed with the Resident Physician Dr. Jacinto. I agree with the documented findings, disposition and treatment plan as described except to the extent set forth below. Mr. Johnston is a 77 year old male with past medical history of COPD and GERD, who presented to the ER for gross hematuria with blood clots. He denied any CP / SOB. Still has gross hematuria Gen: A, A, O x 3 Chest: Diminished BS b/l Heart: S1S2+ RRR No murmurs Abd: Soft, NT a/p 1. Acute gross hematuria 2. Acute blood loss anemia cont trending on Hb stable Hb @ 9.0 transfuse PRBC on PRN basis if Hb < 7.0 Urology on board CBI for now Scheduled for cystoscopy today 3. Severe protein caloric malnutrition Leather Lacer consulted
--- NOTE | 2017-11-23 15:38 | Anesthesia Evaluation PreOp ---
Date of Encounter: 11/23/17 Time of Encounter: 15:36 - Past History Planned Operation: TURBT Cardiac History: HTN Pulmonary History: Former smoker, Asthma, COPD (home O2 2.5L qhs) COURT RECORDER History: Denies Any Significant HX Other Medical History: GERD Anesthesia History: No Prior Anesthetic Complications, Past Anesthesia (ey surgery) Alcohol Use: none Drug use: none Medications and Allergies ALPRAZolam [Xanax 1 MG Tablet] 1 mg PO BID 10/08/17 [History] Albuterol Sulfate [Ventolin Hfa] 2 puff IH Q4H PRN 10/08/17 [History] Fluticasone Propionate Nasal [Flonase] 2 spr NS DAILY 10/08/17 [History] Montelukast [Singulair] 10 mg PO DAILY 10/08/17 [History] Ranitidine HCl [Zantac] 300 mg PO DAILY 10/08/17 [History] Fluticasone/Salmeterol [Advair 250-50 Diskus] 1 puff IH BID 11/20/17 [History] Guaifenesin [Guaifenesin ER] 1,200 mg PO DAILY PRN 11/20/17 [History] Multivitamin [One Daily Essential] 1 tab PO DAILY 11/20/17 [History] 3 Allergy/AdvReac Type Severity Reaction Status Date / Time tiotropium AdvReac Vomiting Verified 11/20/17 18:24 [From Spiriva with HandiHaler] - Meds/Allergy Pre-op Review Medications Reviewed: Yes Allergies Reviewed: Yes Beta Blockers on Current Med List: No Anesthesia Results - Labs 11/23/17 04:07 11/23/17 04:07 - Imaging EKG: report reviewed (10/08/2017 SINUS RHYTHM WITH OCCASIONAL VENTRICULAR PREMATURE COMPLEXES) Anesthesia Exam Vital Signs/O2 Sat/Glucose, Most Recent Temp Pulse Resp BP Pulse Ox 97.9 F 72 16 105/64 91 11/23/17 11:44 11/23/17 11:44 11/23/17 11:44 11/23/17 11:44 11/23/17 11:44 Blood Glucose* 111 Height: 5'9''/1.75 m Weight: 128 lbs/58.1 kg NPO (# of Hours): 8 Pain Scale: 0 Pain Scale Used: Numeric (1 - 10) - HEENT Pupil (Motor): EOMI Mallampati: II Teeth: Normal Oral Opening: Greater than 3 - COURT RECORDER LOC: Oriented COURT RECORDER Motor: Normal RUE, Normal LUE, Normal RLE, Normal LLE, Normal Face COURT RECORDER Sensory: Normal: RUE, LUE, RLE, LLE, Face - Cardiac Rhythm: Regular Murmur: None - Pulmonary Breath Sounds: bilateral Clear (distant BS) Respiratory Effort: Symmetrical Anesthesia Assess/Plan ASA Score: 3 Modified José Scale for Level of Consciousness: Cooperative, oriented, and tranquil Anesthetic Plan: General Monitoring Plan: Standard Monitors Recovery Plan: PACU
[2017-11-23] MEDS ORDERED: Albuterol 2.5 MG/3 ML NEBULIZER IH ONE ×2 (15:58→18:13)
--- NOTE | 2017-11-23 16:39 | Operative Note ---
Date of procedure: 11/23/17 Pre-op diagnosis: bladder tumor/clots Post-op diagnosis: other (moderate 3 cm bladder tumor. large blood clot.) Procedure: TURBT (3 cm tumor). clot evacuation. Anesthesia: GETA Surgeon: Maicol Rodas Was there an itinerant teacher assistant present: No Estimated blood loss (cc): 10 Specimen: bladder tumor Condition: stable Disposition: PACU Procedure in Detail: PROCEDURE IN DETAIL: Patient was taken back to the operating room, positioned supine on the operating table. Anesthesia was applied without complication. They were moved into dorsal lithotomy. Careful attention was maintained to cushion pressure points for patient's safety. The patient was prepped and draped in sterile fashion. Time-out was performed to confirm the proper patient and procedure. The resectoscope with visual obturator was inserted and a 22-Russian loop with a coagulation/cut settings of 80/80 was assembled. Very large bladder clot within the dependent portion of the bladder. I was able to irrigate this out through the resectoscope using a Matt syringe. Once the blood clot was cleared I visualized the bladder. Moderate to large tumor along the right lateral wall trending within 1 cm of the right ureteral orifice. It did not involve the ureteral orifice. Quite exophytic. There was a small satellite tumor on the posterior wall. This was later fulgurated but not resected. I was able to resect the tumor in its entirety without injuring the right ureteral orifice. I examined the remainder of the bladder which revealed no further tumor. There were moderate trabeculations and cellules throughout. There was no obturator reflex during the procedure. Muscle appeared to be visualized in the resection site and there was no evidence of perforation. Hemostasis was controlled with the loop and minimal bleeding was observed after the procedure. All tumor chips were removed from the bladder through the resectoscope and sent for permanent specimen. I emptied and filled the bladder a few times to confirm hemostasis. A 3-way 22-Russian catheter was placed. They were brought out of anesthesia in stable condition.
[2017-11-23] MEDS ORDERED: *HR* FentaNYL (PF) 100 MCG/2 ML VIAL ONE (16:46)
[2017-11-23] MEDS ORDERED: Dexamethasone 4 MG/ML VIAL ONE (16:46)
[2017-11-23] MEDS ORDERED: *HR* Propofol 200 MG/20 ML VIAL IVP ONE (16:46)
[2017-11-23] MEDS ORDERED: Lidocaine -MPF 2% 2 ML VIAL ONE (16:46)
[2017-11-23] MEDS ORDERED: *HR* Midazolam HCl 2 MG/2 ML VIAL ONE (16:46)
[2017-11-23] MEDS ORDERED: Ondansetron 4 MG/2 ML VIAL ONE (16:46)
[2017-11-23] MEDS ORDERED: EPHEDrine 50 MG/ML VIAL ONE (16:47)
[2017-11-23] MEDS ORDERED: *HR* OxyCODONE Immed Rel 5 MG TABLET PO PRN (16:57)
[2017-11-23] MEDS ORDERED: MORPHINE SUL Oral CONC 10 MG/0.5 ML ORAL.SYG SL PRN (16:57)
[2017-11-23] MEDS ORDERED: *HR* Promethazine 25 MG/ML VIAL IVP PRN (16:57)
--- NOTE | 2017-11-23 17:53 | Anesthesia Evaluation Post Op ---
Date of Encounter: 11/23/17 Time of Encounter: 17:52 - Vital Signs Vital Signs: Vital Signs/O2 Sat, Most Current Temp Pulse Resp BP Pulse Ox 98.4 F 85 16 102/60 100 11/23/17 17:45 11/23/17 17:45 11/23/17 17:45 11/23/17 17:45 11/23/17 17:45 - Lungs Lungs: Clear Ascult./Percussion - Airway Airway: Non-obstructed - Cardiovascular Regular Rate - Mental Status Mental Status: Alert & Oriented, Answers Appropriately - Pain Pain Scale: 0 Pain Scale used: Numeric (1 - 10) - Nausea Vomiting Nausea Vomiting: Not Present - Hydration Hydration: Ice chips, Martinez catheter - Discharge PostOp Status: Transfer Patient to floor
[2017-11-23] MEDS ORDERED: Acetaminophen 325 MG TABLET PO PRN (18:13)
[2017-11-23] MEDS ORDERED: Naloxone 0.4 MG/ML INJ IVP PRN (18:13)
[2017-11-23] MEDS ORDERED: Simethicone 80 MG TAB.CHEW PO PRN (18:13)
--- NOTE | 2017-11-24 07:21 | Urology Progress Note ---
Date of Encounter: 11/24/17 Time of Encounter: 07:18 - Assessment and Plan (1) Gross hematuria Current Visit: Yes Status: Resolved (2) Mass of urinary bladder Current Visit: Yes Status: Ruled-out Assessment and plan: s/p TURBT. likely bladder cancer. bleeding has stopped. plan to remove cath this AM. if pt voids OK - OK for discharge from standpoint. followup 1-2 weeks to discuss path and potential adjuvent therapy. Progress Note Subjective: no new complaints Narrative: urine has cleared. Objective Initial Vital Signs Temp Pulse Resp BP Pulse Ox 98.2 F 104 18 148/66 94 11/20/17 14:36 11/20/17 14:36 11/20/17 14:36 11/20/17 14:36 11/20/17 14:36 - General physical appearance Present: no distress - Additional Exam urine completely clear. - Labs 11/23/17 04:07 11/23/17 04:07 - VTE Documentation of Mechanical Device: Intermittent pneumatic compression device Consult Discharge Plan - Plan Referrals: Angel Harrell MD [Primary Care Provider] -
[2017-11-24] MEDS: Budesonide/Formoterol 80/4.5 MDI IH SCH ×2 (07:48→20:56)
[2017-11-24 08:03] LABS: Hematocrit 23.2 % (37.5-50.1); Hemoglobin 7.7 g/dL (12.9-16.9); Mean Corpuscular HGB Conc 33.2 g/dL (31.6-35.5); Mean Corpuscular Volume 93.5 fL (83.0-100.0); Mean Platelet Volume 8.8 fL (9.4-12.4); Platelet Count 218 K/mcL (140-400); Red Blood Count 2.48 M/mcL (4.19-5.50); Red Cell Distribution Width 14.9 % (11.5-14.5)
[2017-11-24] MEDS: Multivit/Ca/Min/Fe/FA 1 TAB TABLET PO SCH (08:08)
[2017-11-24] MEDS: ALPRAZolam 1 MG TABLET PO SCH ×2 (08:08→21:20)
[2017-11-24] MEDS: Famotidine 20 MG TABLET PO SCH (08:09)
[2017-11-24] MEDS: Fluticasone Propionate Nasal 50 MCG/SPRAY BOTTLE NS SCH (08:09)
[2017-11-24 08:36] LABS: BUN/Creatinine Ratio 21 (6-26); Blood Urea Nitrogen 15 mg/dL (8-23); Calcium 8.7 mg/dL (8.6-10.3); Carbon Dioxide 26 mEq/L (23-29); Chloride 100 mEq/L (98-107); Glucose 121 mg/dL (70-105); Osmolality,Calculated 274 (280-300); Potassium 4.3 mEq/L (3.5-5.1); Sodium 131 mEq/L (136-145); eGFR For African Americans > 60 (> 60); eGFR For Non-African Americans > 60 (> 60)
[2017-11-24] MEDS ORDERED: cefTRIAXone 1,000 MG in Water for inj. (sterile) 20 ML 10 ML IVP SCH (09:00)
--- NOTE | 2017-11-24 10:04 | Internal Med Progress Note ---
<LisbethtedlaurieDiana Yoselinrogerio - Last Filed: 11/24/17 17:02> Date of Encounter: 11/24/17 - Assessment and plan (1) Hyponatremia Current Visit: Yes Status: Acute (2) GERD (gastroesophageal reflux disease) Current Visit: Yes Status: Chronic Qualifiers: Esophagitis presence: without esophagitis Qualified Code(s): K21.9 - Gastro -esophageal reflux disease without esophagitis (3) Mass of urinary bladder Current Visit: Yes Status: Ruled-out (4) COPD (chronic obstructive pulmonary disease) Current Visit: Yes Status: Chronic Qualifiers: COPD type: unspecified COPD Qualified Code(s): J44.9 - Chronic obstructive pulmonary disease, unspecified (5) Anxiety Current Visit: Yes Status: Chronic (6) Hematuria Current Visit: Yes Status: Acute Qualifiers: Hematuria type: gross Qualified Code(s): R31.0 - Gross hematuria (7) UTI (urinary tract infection) Current Visit: Yes Status: Acute Qualifiers: Urinary tract infection type: acute cystitis Hematuria presence: with hematuria Qualified Code(s): N30.01 - Acute cystitis with hematuria (8) BPH (benign prostatic hyperplasia) Current Visit: Yes Status: Chronic Qualifiers: Lower urinary tract symptom presence: symptoms present Lower urinary tract symptom detail: weak urinary stream Qualified Code(s): N40.1 - Benign prostatic hyperplasia with lower urinary tract symptoms; R39.12 - Poor urinary stream; R39.12 - Poor urinary stream (9) DVT prophylaxis Current Visit: Yes Status: Acute (10) Blood loss anemia Current Visit: Yes Status: Acute (11) Protein-calorie malnutrition, severe Current Visit: Yes Status: Acute - Time Spent With Patient Total time spent is greater than 50% in coordination of care (as documented) at patient's floor/unit and/or counseling patient: - Constitutional Vitals: Temp Pulse Resp BP Pulse Ox 98.4 F 92 18 112/59 96 11/24/17 15:45 11/24/17 15:45 11/24/17 15:45 11/24/17 15:45 11/24/17 15:45 Internal Medicine: Result - Labs CBC & Chem 7: 11/24/17 07:51 11/24/17 07:51 Labs: Short CBC 11/24/17 Range/Units 07:51 WBC 9.8 (4.3-11.1) K/mcL Hgb 7.7 L (12.9-16.9) g/dL Hct 23.2 L (37.5-50.1) % Plt Count 218 (140-400) K/mcL BMP 11/24/17 07:51 Sodium 131 L Potassium 4.3 Chloride 100 Carbon Dioxide 26 BUN 15 Creatinine 0.70 Glucose 121 H Calcium 8.7 - ABG Interpretation ABG results: PT/INR, D-dimer PT 12.0 Seconds (9.4-12.1) 11/20/17 15:46 Consult Discharge Plan - Plan Referrals: Maicol Rodas MD [Partnered Physician] - 12/09/17 8:00 am Angel Harrell MD [Primary Care Provider] - 11/26/17 2:00 pm - Attending Attestation I performed a history and physical examination of the patient and discussed his/ her management with the resident. I reviewed the residents note and agree with the documented findings and plan of care. Patient states hematuria is resolved this AM. Urology evaluated patient and Martinez removed today. VS reviewed and stable. Hemoglobin noted to be down to 7.7 today. 1. Hematuria - s/p TURBT 3 cm tumor. Pathology pending. Scheduled Urology follow-up as outpatient. 2. Acute blood loss anemia 3. Hyponatremia 4. BPH - continue Flomax Disposition: recheck H&H and okay to be discharged if stable tomorrow AM. <Isela Jacinto - Last Filed: 11/24/17 17:42> Date of Encounter: 11/24/17 Time of Encounter: 10:04 - Assessment and plan (1) Hematuria Current Visit: Yes Status: Acute Assessment and plan: Resolved POD # 1 s/p TURBT 3 cm tumor and clot evacuation Qualifiers: Hematuria type: gross Qualified Code(s): R31.0 - Gross hematuria (2) Blood loss anemia Current Visit: Yes Status: Resolved Assessment and plan: Secondary to hematuria from bladder mass Hemoglobin 7.7 this morning, most likely delayed response to hematuria Recheck H/H in AM (3) Mass of urinary bladder Current Visit: Yes Status: Ruled-out Assessment and plan: POD #1 s/p TURBT 3 cm tumor Most likely bladder cancer given his h/o tobacco use Hematuria has resolved and pt voiding ok Pathology pending Urology will see as outpatient to discuss pathology and potential adjuvent therapy (4) UTI (urinary tract infection) Current Visit: Yes Status: Acute Assessment and plan: No significant growth on urine culture, final result Ceftriaxone discontinued Qualifiers: Urinary tract infection type: acute cystitis Hematuria presence: with hematuria Qualified Code(s): N30.01 - Acute cystitis with hematuria (5) GERD (gastroesophageal reflux disease) Current Visit: Yes Status: Chronic Assessment and plan: Continue home med famotidine Qualifiers: Esophagitis presence: without esophagitis Qualified Code(s): K21.9 - Gastro -esophageal reflux disease without esophagitis (6) Hyponatremia Current Visit: Yes Status: Acute Assessment and plan: Replace as needed (7) COPD (chronic obstructive pulmonary disease) Current Visit: Yes Status: Chronic Assessment and plan: Stable Maintaining O2 sat upper 90's on 2L nasal cannula Continue Symbicort and albuterol inhaler DuoNebs PRN Qualifiers: COPD type: unspecified COPD Qualified Code(s): J44.9 - Chronic obstructive pulmonary disease, unspecified (8) Anxiety Current Visit: Yes Status: Chronic Assessment and plan: continue home dose xanax 1mg PO BID (9) BPH (benign prostatic hyperplasia) Current Visit: Yes Status: Chronic Assessment and plan: Prostatomegaly noted on CT abd pelvis Continue tamsulosin Qualifiers: Lower urinary tract symptom presence: symptoms present Lower urinary tract symptom detail: weak urinary stream Qualified Code(s): N40.1 - Benign prostatic hyperplasia with lower urinary tract symptoms; R39.12 - Poor urinary stream; R39.12 - Poor urinary stream (10) Protein-calorie malnutrition, severe Current Visit: Yes Status: Acute Assessment and plan: Nutrition consult for diet education (11) DVT prophylaxis Current Visit: Yes Status: Acute Assessment and plan: EPCDs - Time Spent With Patient Total time spent is greater than 50% in coordination of care (as documented) at patient's floor/unit and/or counseling patient: - Subjective Interval history: Seen and examined this morning at bedside. Pt resting comfortably in bed. He has no complaints and denies fever, chills, nausea, vomiting, chest pain, shortness of breath, abdominal pain, suprapubic pain. - Constitutional Vitals: Temp Pulse Resp BP Pulse Ox 98.3 F 94 16 140/91 94 11/24/17 08:00 11/24/17 08:00 11/24/17 08:00 11/24/17 08:00 11/24/17 08:00 General appearance: Present: A&O X 3, pleasant, no acute distress - Other Additional findings: General: No acute distress, resting comfortably in bed HEENT: head normocephalic/atraumatic, EOMI, sclera anicteric Neck: Supple, FROM Cardio: RRR, no murmurs, +S1/S2 Pulm: CTAB, no wheezing. Normal respiratory effort. Abdomen: soft, nontender, BS+, nondistended Extremities: No LE edema, no calf tenderness, no cyanosis Back: normal appearance on inspection, Neuro: AAOx3, no focal deficit, no speech deficit, CN II-XII grossly intact, moves extremities spontaneously MSK: Strength 5/5 throughout, no visible deformities Skin: clean, dry, intact, no visible rashes Psych: Appropriate mood and affect. Cooperative with exam Internal Medicine: Result - Labs CBC & Chem 7: 11/24/17 07:51 11/24/17 07:51 Labs: Short CBC 11/24/17 Range/Units 07:51 WBC 9.8 (4.3-11.1) K/mcL Hgb 7.7 L (12.9-16.9) g/dL Hct 23.2 L (37.5-50.1) % Plt Count 218 (140-400) K/mcL BMP 11/24/17 07:51 Sodium 131 L Potassium 4.3 Chloride 100 Carbon Dioxide 26 BUN 15 Creatinine 0.70 Glucose 121 H Calcium 8.7 - ABG Interpretation ABG results: PT/INR, D-dimer PT 12.0 Seconds (9.4-12.1) 11/20/17 15:46 - VTE Documentation of Mechanical Device: Intermittent pneumatic compression device
[2017-11-24] MEDS: Ipratropium/Albuterol Neb 3 ML IH PRN (23:13)
[2017-11-25 05:11] LABS: Hematocrit 21.4 % (37.5-50.1)
[2017-11-25 05:27] LABS: BUN/Creatinine Ratio 22 (6-26); Blood Urea Nitrogen 17 mg/dL (8-23); Calcium 8.6 mg/dL (8.6-10.3); Carbon Dioxide 30 mEq/L (23-29); Chloride 101 mEq/L (98-107); Glucose 84 mg/dL (70-105); Osmolality,Calculated 281 (280-300); Potassium 4.2 mEq/L (3.5-5.1); Sodium 135 mEq/L (136-145); eGFR For African Americans > 60 (> 60); eGFR For Non-African Americans > 60 (> 60)
--- NOTE | 2017-11-25 07:00 | Urology Progress Note ---
Date of Encounter: 11/25/17 Time of Encounter: 06:59 - Assessment and Plan (1) Gross hematuria Current Visit: Yes Status: Resolved (2) Mass of urinary bladder Current Visit: Yes Status: Ruled-out Assessment and plan: hgb down to 7.0. likely delayed response. will defer management to hospitalists. Progress Note Narrative: voided urine clear Objective Initial Vital Signs Temp Pulse Resp BP Pulse Ox 98.2 F 104 18 148/66 94 11/20/17 14:36 11/20/17 14:36 11/20/17 14:36 11/20/17 14:36 11/20/17 14:36 - General physical appearance Present: no distress - Labs 11/25/17 04:08 11/25/17 04:08 Diabetes panel 11/24/17 11/25/17 Range/Units 07:51 04:08 Sodium 131 L 135 L (136-145) mEq/L Potassium 4.3 4.2 (3.5-5.1) mEq/L Chloride 100 101 (98-107) mEq/L Carbon Dioxide 26 30 H (23-29) mEq/L BUN 15 17 (8-23) mg/dL Creatinine 0.70 0.76 (0.70-1.30) mg/dL Glucose 121 H 84 (70-105) mg/dL Calcium 8.7 8.6 (8.6-10.3) mg/dL Calcium panel 11/24/17 11/25/17 Range/Units 07:51 04:08 Calcium 8.7 8.6 (8.6-10.3) mg/dL Pituitary panel 11/24/17 11/25/17 Range/Units 07:51 04:08 Sodium 131 L 135 L (136-145) mEq/L Potassium 4.3 4.2 (3.5-5.1) mEq/L Chloride 100 101 (98-107) mEq/L Carbon Dioxide 26 30 H (23-29) mEq/L BUN 15 17 (8-23) mg/dL Creatinine 0.70 0.76 (0.70-1.30) mg/dL Glucose 121 H 84 (70-105) mg/dL Calcium 8.7 8.6 (8.6-10.3) mg/dL Adrenal panel 11/24/17 11/25/17 Range/Units 07:51 04:08 Sodium 131 L 135 L (136-145) mEq/L Potassium 4.3 4.2 (3.5-5.1) mEq/L Chloride 100 101 (98-107) mEq/L Carbon Dioxide 26 30 H (23-29) mEq/L BUN 15 17 (8-23) mg/dL Creatinine 0.70 0.76 (0.70-1.30) mg/dL Glucose 121 H 84 (70-105) mg/dL Calcium 8.7 8.6 (8.6-10.3) mg/dL - VTE Documentation of Mechanical Device: Intermittent pneumatic compression device Consult Discharge Plan - Plan Referrals: Maicol Rodas MD [Partnered Physician] - 12/09/17 8:00 am Angel Harrell MD [Primary Care Provider] - 11/26/17 2:00 pm
[2017-11-25] MEDS: Ipratropium/Albuterol Neb 3 ML IH PRN ×2 (07:48→22:06)
[2017-11-25] MEDS: Budesonide/Formoterol 80/4.5 MDI IH SCH ×2 (07:48→22:06)
[2017-11-25] MEDS: Fluticasone Propionate Nasal 50 MCG/SPRAY BOTTLE NS SCH (08:12)
[2017-11-25] MEDS: Hyoscyamine SL 0.125 MG TAB.SUBL SL PRN ×2 (08:12→21:37)
[2017-11-25] MEDS: Famotidine 20 MG TABLET PO SCH (08:12)
[2017-11-25] MEDS: ALPRAZolam 1 MG TABLET PO SCH ×2 (08:12→21:37)
[2017-11-25] MEDS: Multivit/Ca/Min/Fe/FA 1 TAB TABLET PO SCH (08:12)
--- NOTE | 2017-11-25 10:46 | Internal Med Progress Note ---
Date of Encounter: 11/25/17 Time of Encounter: 10:00 - Assessment and plan (1) Hematuria Current Visit: Yes Status: Acute Qualifiers: Hematuria type: gross Qualified Code(s): R31.0 - Gross hematuria (2) Blood loss anemia Current Visit: Yes Status: Resolved (3) Mass of urinary bladder Current Visit: Yes Status: Ruled-out (4) UTI (urinary tract infection) Current Visit: Yes Status: Acute Qualifiers: Urinary tract infection type: acute cystitis Hematuria presence: with hematuria Qualified Code(s): N30.01 - Acute cystitis with hematuria (5) GERD (gastroesophageal reflux disease) Current Visit: Yes Status: Chronic Qualifiers: Esophagitis presence: without esophagitis Qualified Code(s): K21.9 - Gastro -esophageal reflux disease without esophagitis (6) Hyponatremia Current Visit: Yes Status: Acute (7) COPD (chronic obstructive pulmonary disease) Current Visit: Yes Status: Chronic Qualifiers: COPD type: unspecified COPD Qualified Code(s): J44.9 - Chronic obstructive pulmonary disease, unspecified (8) Anxiety Current Visit: Yes Status: Chronic (9) BPH (benign prostatic hyperplasia) Current Visit: Yes Status: Chronic Qualifiers: Lower urinary tract symptom presence: symptoms present Lower urinary tract symptom detail: weak urinary stream Qualified Code(s): N40.1 - Benign prostatic hyperplasia with lower urinary tract symptoms; R39.12 - Poor urinary stream; R39.12 - Poor urinary stream (10) Protein-calorie malnutrition, severe Current Visit: Yes Status: Acute (11) DVT prophylaxis Current Visit: Yes Status: Acute - Time Spent With Patient Total time spent is greater than 50% in coordination of care (as documented) at patient's floor/unit and/or counseling patient: - Constitutional Vitals: Temp Pulse Resp BP Pulse Ox 98.7 F 86 18 99/40 92 11/25/17 07:09 11/25/17 07:09 11/25/17 07:48 11/25/17 07:09 11/25/17 07:48 General appearance: Present: A&O X 3, pleasant, no acute distress Internal Medicine: Result - Labs CBC & Chem 7: 11/25/17 12:04 11/25/17 04:08 Labs: Short CBC 11/25/17 Range/Units 04:08 Hgb 7.0 L (12.9-16.9) g/dL Hct 21.4 L (37.5-50.1) % BMP 11/25/17 04:08 Sodium 135 L Potassium 4.2 Chloride 101 Carbon Dioxide 30 H BUN 17 Creatinine 0.76 Glucose 84 Calcium 8.6 - ABG Interpretation ABG results: PT/INR, D-dimer PT 12.0 Seconds (9.4-12.1) 11/20/17 15:46 - VTE Documentation of Mechanical Device: Intermittent pneumatic compression device Consult Discharge Plan - Plan Referrals: Maicol Rodas MD [Partnered Physician] - 12/09/17 8:00 am Angel Harrell MD [Primary Care Provider] - 12/01/17 10:15 am
[2017-11-25 12:31] LABS: Hematocrit 22.9 % (37.5-50.1); Hemoglobin 7.4 g/dL (12.9-16.9)
--- NOTE | 2017-11-25 15:48 | Discharge Summary ---
<Isela Jacinto - Last Filed: 11/25/17 17:18> Orders not resulted at time of discharge: Pending orders 11/25/17 17:00 H/H [Hemoglobin and Hematocrit] [HEME] Timed Date of Encounter: 11/25/17 Time of Encounter: 15:46 - Discharge Diagnosis (1) Hematuria Priority: Primary Status: Acute Qualifiers: Hematuria type: gross Qualified Code(s): R31.0 - Gross hematuria (2) Blood loss anemia Priority: Secondary Status: Resolved (3) Mass of urinary bladder Priority: Secondary Status: Ruled-out (4) UTI (urinary tract infection) Priority: Secondary Status: Resolved Qualifiers: Urinary tract infection type: acute cystitis Hematuria presence: with hematuria Qualified Code(s): N30.01 - Acute cystitis with hematuria (5) GERD (gastroesophageal reflux disease) Priority: Secondary Status: Chronic Qualifiers: Esophagitis presence: without esophagitis Qualified Code(s): K21.9 - Gastro -esophageal reflux disease without esophagitis (6) Hyponatremia Priority: Secondary Status: Resolved (7) COPD (chronic obstructive pulmonary disease) Priority: Secondary Status: Chronic Qualifiers: COPD type: unspecified COPD Qualified Code(s): J44.9 - Chronic obstructive pulmonary disease, unspecified (8) Anxiety Priority: Secondary Status: Chronic (9) BPH (benign prostatic hyperplasia) Priority: Secondary Status: Chronic Qualifiers: Lower urinary tract symptom presence: symptoms present Lower urinary tract symptom detail: weak urinary stream Qualified Code(s): N40.1 - Benign prostatic hyperplasia with lower urinary tract symptoms; R39.12 - Poor urinary stream; R39.12 - Poor urinary stream (10) DVT prophylaxis Priority: Secondary Status: Acute (11) Protein-calorie malnutrition, severe Priority: Secondary Status: Acute Hospital course: Mr. Johnston is a 77 year old male who presented to the emergency department with complaints of gross hematuria with blood clots. First episode of hematuria was couple months ago, he did not go to the hospital because hematuria resolved on its own. About 3 days before admission patient was experiencing dysuria and saw his PCP who gave him ciprofloxacin; the bleeding got worse around this time and he began to pass clots. Vital signs in the ED showed he was afebrile, slightly tachycardic (HR 104), BP 148/66, saturating 94%, RR 18. Lab work in the emergency department showed hemoglobin 11.4 and mild hyponatremia with sodium 130. Urinalysis showed large amount of blood, positive nitrites, large amount leukocyte esterase, urine was sent for culture--IV ceftriaxone was started for suspected UTI KUB negative for acute findings in abdomen. CT abdomen pelvis showed a 6.6 x 3.4 cm hematoma within urinary bladder, suspicious for underlying neoplasm. Urology was consulted by the ED and patient was admitted to hospitalist service for further care. Urology suspected a bladder tumor to be the cause of his gross hematuria. A hematuria catheter was placed by urology for continuous bladder irrigation with plans to proceed with surgical intervention as an outpatient. However the patient's hematuria persisted despite CBI and hemoglobin began to trend down. Patient was taken to the OR on 11/23/17 for a TURBT and clot evacuation. 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 The patient tolerated the procedure well. Urine culture showed no growth and the IV ceftriaxone was stopped. The patient's hematuria resolved, but hemoglobin continued to slowly trended down. On the day of discharge his hemoglobin was stable at 7.6, urine was clear. Urology will see the patient as outpatient for follow-up and to discuss pathology results. Vital signs on discharge show patient was afebrile & hemodynamically stable. He was deemed medically stable for discharge. He was instructed to have lab work (CBC and BMP) drawn before seeing his PCP. Discharge discussed with: patient - Time Spent with Patient Total time spent providing and/or coordinating discharge services: - Discharge Medications Prescriptions: Docusate [Colace] 100 mg PO DAILY #30 capsule Ferrous Sulfate [Iron] 325 mg PO DAILY #30 tablet Home Medications: ALPRAZolam [Xanax 1 MG Tablet] 1 mg PO BID 10/08/17 [History] Albuterol Sulfate [Ventolin Hfa] 2 puff IH Q4H PRN 10/08/17 [History] Fluticasone Propionate Nasal [Flonase] 2 spr NS DAILY 10/08/17 [History] Montelukast [Singulair] 10 mg PO DAILY 10/08/17 [History] Ranitidine HCl [Zantac] 300 mg PO DAILY 10/08/17 [History] Fluticasone/Salmeterol [Advair 250-50 Diskus] 1 puff IH BID 11/20/17 [History] Guaifenesin [Guaifenesin ER] 1,200 mg PO DAILY PRN 11/20/17 [History] Multivitamin [One Daily Essential] 1 tab PO DAILY 11/20/17 [History] Docusate [Colace] 100 mg PO DAILY #30 capsule 11/25/17 [Rx] Ferrous Sulfate [Iron] 325 mg PO DAILY #30 tablet 11/25/17 [Rx] Allergies/Adverse Reactions: 3 Allergy/AdvReac Type Severity Reaction Status Date / Time tiotropium AdvReac Vomiting Verified 11/20/17 18:24 [From [facility] with [facility]] Date of admission: 11/20/17 20:23 Primary care physician: Angel Harrell MD Consults: 11/24/17 08:28 Consult to Nursing Aide [CONS] Stat Reason for SW Consult: pt has home o2 and aniya h.h 11/24/17 17:31 Consult to Nutrition [CONS] Routine Comment: Consulting Provider: NUTRITION Reason for Dietary Consult: Diet Education Discharging clinician: Isela Jacinto Anticipated date of discharge: 11/25/17 - Constitutional Vitals: Temp Pulse Resp BP Pulse Ox 98.5 F 86 17 122/67 95 11/25/17 15:14 11/25/17 15:14 11/25/17 15:14 11/25/17 15:14 11/25/17 15:14 General appearance: Present: A&O X 3, pleasant, no acute distress - Other Additional findings: General: No acute distress, resting comfortably in bed, pleasant HEENT: head normocephalic/atraumatic, EOMI, PERRL, sclera anicteric, moist mucus membranes, Neck: Supple, no lymphadenopathy Cardio: RRR, no murmurs, +S1/S2 Pulm: CTAB, no wheezing, rhonchi, rales. Normal respiratory effort. Abdomen: soft, nontender, BS+, nondistended, no suprapubic tenderness Extremities: No LE edema, no calf tenderness, no cyanosis Back: normal appearance on inspection, Nontender throughout Neuro: AAOx3, no focal deficit, no speech deficit, mentation intact, CN II-XII grossly intact, moves extremities spontaneously MSK: Strength 5/5 throughout, no visible deformities Skin: clean, dry, intact, no visible rashes Psych: Appropriate mood and affect. Answers questions appropriately. Cooperative with exam - Patient Status Disposition: Home Health Service Condition: Fair Functional capacity at discharge: independent ambulation Overall status at discharge: patient is progressing back to baseline - Ambulatory Orders Ambulatory Orders: Basic Metabolic Panel [CHEM] Time Frame: 2 Days, Facility: [facility], Location: Lab Complete Blood Count w/o Diff [HEME] Time Frame: 2 Days, Facility: [facility], Location: Lab - Discharge Instructions Follow Up With: Maicol Rodas MD [Partnered Physician] - 12/09/17 8:00 am Angel Harrell MD [Primary Care Provider] - 12/01/17 10:15 am Additional Instructions: See your PCP in 2 to 3 days after you are discharged Have your lab work drawn in 2 to 3 days after you are discharged Follow up with [facility] (Dr. Rodas) as an outpatient Take all your medications as prescribed If you develop fever, chills, chest pain, difficulty breathing, shortness of breath, abdominal pain, nausea/vomiting, or if your symptoms worsen, contact your PCP or go to the emergency department - Diet and Activity Activity: resume usual activities as tolerated, wear oxygen at night Diet: advance to your usual diet - VTE Documentation of Mechanical Device: Intermittent pneumatic compression device <Geneva Knott - Last Filed: 11/25/17 20:28> Date of Encounter: 11/25/17 - Discharge Diagnosis (1) Hyponatremia Status: Resolved (2) GERD (gastroesophageal reflux disease) Status: Chronic Qualifiers: Esophagitis presence: without esophagitis Qualified Code(s): K21.9 - Gastro -esophageal reflux disease without esophagitis (3) Mass of urinary bladder Status: Ruled-out (4) COPD (chronic obstructive pulmonary disease) Status: Chronic Qualifiers: COPD type: unspecified COPD Qualified Code(s): J44.9 - Chronic obstructive pulmonary disease, unspecified (5) Anxiety Status: Chronic (6) Hematuria Status: Acute Qualifiers: Hematuria type: gross Qualified Code(s): R31.0 - Gross hematuria (7) UTI (urinary tract infection) Status: Resolved Qualifiers: Urinary tract infection type: acute cystitis Hematuria presence: with hematuria Qualified Code(s): N30.01 - Acute cystitis with hematuria (8) BPH (benign prostatic hyperplasia) Status: Chronic Qualifiers: Lower urinary tract symptom presence: symptoms present Lower urinary tract symptom detail: weak urinary stream Qualified Code(s): N40.1 - Benign prostatic hyperplasia with lower urinary tract symptoms; R39.12 - Poor urinary stream; R39.12 - Poor urinary stream (9) DVT prophylaxis Status: Acute (10) Blood loss anemia Status: Resolved (11) Protein-calorie malnutrition, severe Status: Acute Hospital course: Mr. Johnston is a 77 year old male - Time Spent with Patient Total time spent providing and/or coordinating discharge services: Date of admission: 11/20/17 20:23 Primary care physician: Angel Harrell MD Consults: 11/24/17 08:28 Consult to Nursing Aide [CONS] Stat Reason for SW Consult: pt has home o2 and aniya h.h 11/24/17 17:31 Consult to Nutrition [CONS] Routine Comment: Consulting Provider: NUTRITION Reason for Dietary Consult: Diet Education - Constitutional Vitals: Temp Pulse Resp BP Pulse Ox 97.8 F 93 17 114/47 97 11/25/17 19:06 11/25/17 19:06 11/25/17 19:06 11/25/17 19:06 11/25/17 19:06 - Attending Attestation I performed a history and physical examination of the patient and discussed his/ her management with the resident. I reviewed the residents note and agree with the documented findings and plan of care. Hematuria resolved. Patient doing well. Hemoglobin low today, likely will improve. Will verify with follow-up hemoglobin later today. If improves then okay to discharge.
--- NOTE | 2017-11-25 16:12 | Physician Discharge Referral ---
Home Health/Hosp Referral Info Transfer to: Home Health Provider in Charge Post Discharge: PCP - Diagnosis (1) Hematuria Priority: Primary Status: Acute (2) Blood loss anemia Priority: Secondary Status: Resolved (3) Mass of urinary bladder Priority: Secondary Status: Ruled-out (4) UTI (urinary tract infection) Priority: Secondary Status: Resolved (5) GERD (gastroesophageal reflux disease) Priority: Secondary Status: Chronic (6) Hyponatremia Priority: Secondary Status: Resolved (7) COPD (chronic obstructive pulmonary disease) Priority: Secondary Status: Chronic (8) Anxiety Priority: Secondary Status: Chronic (9) BPH (benign prostatic hyperplasia) Priority: Secondary Status: Chronic (10) Protein-calorie malnutrition, severe Priority: Secondary Status: Acute (11) DVT prophylaxis Priority: Secondary Status: Acute - Respiratory Orders Oxygen / L per min (2L/per min) Smoking Cessation: Smoking cessation has been advised. For more information, call the [employer] Tobacco Quit Line at 0-199-PGYR-NOW. - Diet/Nutrition Diet/Nutrition Orders: Regular - Activity Activity Orders: Up ad juana - Services Needed Following services are medically necessary services: Nursing - Transfer Medications Prescriptions: Docusate [Colace] 100 mg PO DAILY #30 capsule Ferrous Sulfate [Iron] 325 mg PO DAILY #30 tablet Home Medications: ALPRAZolam [Xanax 1 MG Tablet] 1 mg PO BID 10/08/17 [History] Albuterol Sulfate [Ventolin Hfa] 2 puff IH Q4H PRN 10/08/17 [History] Fluticasone Propionate Nasal [Flonase] 2 spr NS DAILY 10/08/17 [History] Montelukast [Singulair] 10 mg PO DAILY 10/08/17 [History] Ranitidine HCl [Zantac] 300 mg PO DAILY 10/08/17 [History] Fluticasone/Salmeterol [Advair 250-50 Diskus] 1 puff IH BID 11/20/17 [History] Guaifenesin [Guaifenesin ER] 1,200 mg PO DAILY PRN 11/20/17 [History] Multivitamin [One Daily Essential] 1 tab PO DAILY 11/20/17 [History] Docusate [Colace] 100 mg PO DAILY #30 capsule 11/25/17 [Rx] Ferrous Sulfate [Iron] 325 mg PO DAILY #30 tablet 11/25/17 [Rx] Allergies/Adverse Reactions: 3 Allergy/AdvReac Type Severity Reaction Status Date / Time tiotropium AdvReac Vomiting Verified 11/20/17 18:24 [From Fer with [facility]er] Certification: Further, I certify that my clinical findings support that this patient is homebound (i.e. absences from home require considerable and taxing effort and are for medical reasons or mormonism services or infrequently or short duration when for other reasons) because: Homebound Reason: Patient requires assistance of a person or device to safely leave home Attestation: My signature below is to certify that this patient is under my care and that I, or nurse practitioner, or a physician's administrative assistant receptionist working with me, has a face-to -face encounter with this patient.
[2017-11-25 16:56] LABS: Hematocrit 23.2 % (37.5-50.1); Hemoglobin 7.6 g/dL (12.9-16.9)
[2017-11-26 06:35] VITALS: BP 122/63
--- NOTE | 2017-11-26 07:37 | Internal Med Progress Note ---
<LisbethtedGeneva sullivan - Last Filed: 11/26/17 17:22> Date of Encounter: 11/26/17 - Assessment and plan (1) Hyponatremia Status: Resolved (2) GERD (gastroesophageal reflux disease) Status: Chronic Qualifiers: Esophagitis presence: without esophagitis Qualified Code(s): K21.9 - Gastro -esophageal reflux disease without esophagitis (3) Mass of urinary bladder Status: Ruled-out (4) COPD (chronic obstructive pulmonary disease) Status: Chronic Qualifiers: COPD type: unspecified COPD Qualified Code(s): J44.9 - Chronic obstructive pulmonary disease, unspecified (5) Anxiety Status: Chronic (6) Hematuria Status: Acute Qualifiers: Hematuria type: gross Qualified Code(s): R31.0 - Gross hematuria (7) UTI (urinary tract infection) Status: Resolved Qualifiers: Urinary tract infection type: acute cystitis Hematuria presence: with hematuria Qualified Code(s): N30.01 - Acute cystitis with hematuria (8) BPH (benign prostatic hyperplasia) Status: Chronic Qualifiers: Lower urinary tract symptom presence: symptoms present Lower urinary tract symptom detail: weak urinary stream Qualified Code(s): N40.1 - Benign prostatic hyperplasia with lower urinary tract symptoms; R39.12 - Poor urinary stream; R39.12 - Poor urinary stream (9) DVT prophylaxis Status: Acute (10) Blood loss anemia Status: Resolved (11) Protein-calorie malnutrition, severe Status: Acute - Time Spent With Patient Total time spent is greater than 50% in coordination of care (as documented) at patient's floor/unit and/or counseling patient: - Constitutional Vitals: Temp Pulse Resp BP Pulse Ox 98.1 F 73 18 122/63 96 11/26/17 06:32 11/26/17 06:32 11/26/17 07:44 11/26/17 06:32 11/26/17 07:44 Internal Medicine: Result - Labs CBC & Chem 7: 11/25/17 16:42 11/25/17 04:08 - ABG Interpretation ABG results: PT/INR, D-dimer PT 12.0 Seconds (9.4-12.1) 11/20/17 15:46 Consult Discharge Plan - Plan Instructions: Iron Supplements (By mouth), Laxative, Stool Softeners (By mouth) , Urinary Tract Infection in Men (DC) Additional Instructions: See your PCP in 2 to 3 days after you are discharged Have your lab work drawn in 2 to 3 days after you are discharged Follow up with [facility] (Dr. Rodas) as an outpatient Take all your medications as prescribed If you develop fever, chills, chest pain, difficulty breathing, shortness of breath, abdominal pain, nausea/vomiting, or if your symptoms worsen, contact your PCP or go to the emergency department Referrals: Maicol Rodas MD [Partnered Physician] - 12/09/17 8:00 am Angel Harrell MD [Primary Care Provider] - 12/01/17 10:15 am Prescriptions: Docusate [Colace] 100 mg PO DAILY #30 capsule Ferrous Sulfate [Iron] 325 mg PO DAILY #30 tablet - Attending Attestation I performed a history and physical examination of the patient and discussed his/ her management with the resident. I reviewed the residents note and agree with the documented findings and plan of care. <Isela Jacinto - Last Filed: 11/26/17 19:08> Date of Encounter: 11/26/17 Time of Encounter: 08:45 - Assessment and plan (1) Hematuria Status: Acute Qualifiers: Hematuria type: gross Qualified Code(s): R31.0 - Gross hematuria (2) Blood loss anemia Status: Resolved (3) Mass of urinary bladder Status: Ruled-out (4) UTI (urinary tract infection) Status: Resolved Qualifiers: Urinary tract infection type: acute cystitis Hematuria presence: with hematuria Qualified Code(s): N30.01 - Acute cystitis with hematuria (5) GERD (gastroesophageal reflux disease) Status: Chronic Qualifiers: Esophagitis presence: without esophagitis Qualified Code(s): K21.9 - Gastro -esophageal reflux disease without esophagitis (6) Hyponatremia Status: Resolved (7) COPD (chronic obstructive pulmonary disease) Status: Chronic Qualifiers: COPD type: unspecified COPD Qualified Code(s): J44.9 - Chronic obstructive pulmonary disease, unspecified (8) Anxiety Status: Chronic (9) BPH (benign prostatic hyperplasia) Status: Chronic Qualifiers: Lower urinary tract symptom presence: symptoms present Lower urinary tract symptom detail: weak urinary stream Qualified Code(s): N40.1 - Benign prostatic hyperplasia with lower urinary tract symptoms; R39.12 - Poor urinary stream; R39.12 - Poor urinary stream (10) Protein-calorie malnutrition, severe Status: Acute (11) DVT prophylaxis Status: Acute - Time Spent With Patient Total time spent is greater than 50% in coordination of care (as documented) at patient's floor/unit and/or counseling patient: - Subjective Interval history: Seen and examined this morning at bedside. Pt has been discharged and will leave today. He endorses no complaints. See discharge summary for further information. - Constitutional Vitals: Temp Pulse Resp BP Pulse Ox 98.1 F 73 18 122/63 96 11/26/17 06:32 11/26/17 06:32 11/26/17 06:32 11/26/17 06:32 11/26/17 06:32 General appearance: Present: A&O X 3, pleasant, no acute distress Exam: General: No acute distress HEENT: head normocephalic/atraumatic, EOMI Cardio: RRR, no murmurs, +S1/S2 Pulm: CTAB, no wheezing, Normal respiratory effort. Abdomen: soft, nontender, BS+, no rebound, rigidity, guarding, distention Extremities: No LE edema Neuro: AAOx3, no focal deficit,mentation intact, moves extremities spontaneously MSK: Strength 5/5 throughout, no visible deformities Skin: clean, dry, intact, no visible rashes Psych: Appropriate mood and affect. Answers questions appropriately. Cooperative with exam Internal Medicine: Result - Labs CBC & Chem 7: 11/25/17 16:42 11/25/17 04:08 Labs: Short CBC 11/25/17 11/25/17 Range/Units 12:04 16:42 Hgb 7.4 L 7.6 L (12.9-16.9) g/dL Hct 22.9 L 23.2 L (37.5-50.1) % - ABG Interpretation ABG results: PT/INR, D-dimer PT 12.0 Seconds (9.4-12.1) 11/20/17 15:46 - VTE Documentation of Mechanical Device: Intermittent pneumatic compression device
[2017-11-26] MEDS: Budesonide/Formoterol 80/4.5 MDI IH SCH (07:42)
[2017-11-26] MEDS: Ipratropium/Albuterol Neb 3 ML IH PRN (07:43)
== END 2017-11-26 08:21 | disposition home health service (06) | DRG 668 ==
LOC: EMEROO 14:35 → 3ANU 14:35
PROVIDERS: ADMIT Internal Medicine; ATTEND Family Medicine

== ENCOUNTER 2018-12-10 10:10 | Inpatient (IN) ==
[2018-12-10] MEDS ORDERED: Ipratropium/Albuterol Neb 3 ML IH ONE (10:47)
[2018-12-10] MEDS ORDERED: methylPREDNISolone 125 MG/2 ML VIAL IVP ONE (10:47)
--- NOTE | 2018-12-10 10:53 | Emergency Department Note ---
Disposition Clinical Impression: Acute renal failure Qualifiers: Qualified Code(s): N17.9 - Disposition: Admitted As Inpatient Condition: Fair General Adult HPI - General Chief complaint: ED Shortness of Breath/Dyspnea Stated complaint: "pneumonia" Time Seen by Provider: 12/10/18 10:20 Source: patient Limitations: no limitations Nursing Notes Reviewed: Yes Vital Signs Reviewed: Yes - History of Present Illness HPI Narrative: Patient presenting for evaluation of shortness of breath. Patient has a history of bladder cancer. Patient has been followed by urology. Patient has been nervous about nephrostomy tube placement. Missed his initial appointment. Was scheduled today with interventional radiology. They called Dr. Rodas regards to concern for pneumonia and wanting to change the appointment. Shortness of breath has been going on over the last several days. Patient does have COPD and does use oxygen at home. Patient with minimal breath sounds bilaterally. Patient will undergo further evaluation for COPD exacerbation versus pneumonia. When patient presented he felt like he had the urge to go to the bathroom. Patient was unable to make urine. Patient does have significant swelling to the lower extremities as well as mild swelling in the scrotum. Patient will receive Martinez catheter as this was removed on the fourth and is not had good urinary output since this time. Removed previously secondary to leakage around the catheter. Pain Scale: 5 - Related Data Home Medications Medication Instructions Recorded Confirmed ALPRAZolam [Xanax 1 MG Tablet] 1 mg PO BID PRN 10/08/17 12/10/18 Albuterol Sulfate [Ventolin Hfa] 2 puff IH Q4H PRN 10/08/17 12/10/18 Fluticasone Propionate Nasal 2 spr NS DAILY 10/08/17 12/10/18 [Flonase] Montelukast [Singulair] 10 mg PO QPM 10/08/17 12/10/18 Ranitidine HCl [Zantac] 300 mg PO QPM 10/08/17 12/10/18 Fluticasone/Salmeterol [Advair 1 puff IH BID 11/20/17 12/10/18 250-50 Diskus] Cetirizine HCl [Zyrtec] 10 mg PO DAILY 05/03/18 12/10/18 Omeprazole [PriLOSEC] 20 mg PO QAM 05/03/18 12/10/18 Tamsulosin [Flomax] 0.4 mg PO DAILY 05/03/18 12/10/18 Hyoscyamine SL [Levsin Sl] 0.125 mg SL Q4HR PRN 11/22/18 12/10/18 Iron Ps Complex/B12/Folic Acid 1 each PO DAILY 11/22/18 12/10/18 [Iferex 150 Forte Capsule] HYDROcodone/Acet 5/325 mg [[place] 1 tab PO Q6H PRN 12/10/18 12/10/18 5-325 mg] Ipratropium/Albuterol Neb [Duoneb] 3 ml IH Q6HR PRN 12/10/18 12/10/18 Sennosides/Docusate Sodium 1 tab PO BID PRN 12/10/18 12/10/18 [Docusate Sodium-Senna Tablet] Allergies Allergy/AdvReac Type Severity Reaction Status Date / Time cephalexin [From Keflex] Allergy Itching Verified 12/04/18 16:34 ciprofloxacin Allergy Itching Verified 12/04/18 16:34 oxybutynin Allergy Itching Verified 12/04/18 16:34 tiotropium AdvReac Vomiting Verified 12/04/18 16:34 [From Spiriva with HandiHaler] All systems ED: reviewed and negative except as stated. Review of Systems: As Per HPI Constitutional: Reports: weakness. Denies: fever, chills ENT ED: Reports: congestion Cardiovascular: Reports: dyspnea on exertion, other (lower extremity swelling). Denies: chest pain Respiratory: Reports: cough, dyspnea, wheezes, sputum production (green) Gastrointestinal: Denies: abdominal pain, nausea Genitourinary: Reports: other (urgency without ability to void; scrotal swelling) Musculoskeletal: Denies: back pain Integumentary: Denies: rash, abrasion Endocrine: Reports: fatigue Past Medical History - Past Medical History Medical history: Reports: asthma, COPD, GERD, other Surgical history: Reports: no surgical history Psychiatric history: Reports: no psych history - Social History Smoking Status: Former smoker Smokeless Tobacco Status: No Alcohol use: Reports: none Drug use: Reports: none Physical Exam General: Mild respiratory distress worse with exertion Head: Normocephalic Atraumatic Eyes: PERRL, EOMI ENT: Airway patent, no stridor Neck: supple, no meningismus Chest: Mild associated wheezing with minimal breath sounds bilaterally. Cardiac: Regular rate and rhythm, no murmurs, rubs or gallops Abdomen: soft, nontender, nondistended; no guarding, rebound, or tenderness to percussion : Mild swelling to the scrotal area without erythema or tenderness to palpati on. No crepitus or fluctuance. Musculoskeletal: Calves symmetric, nontender. +2 pitting edema to the lower extremities. Skin: No rash, normal skin tone. Neuro: Alert and Oriented to person, place, and time; No obvious focal deficit. - General Limitations: no limitations General appearance: alert Course - Reevaluation(s) Reevaluation #1: Bedside ultrasound performed by me shows bilateral mild to moderate hydronephrosis bilaterally. - Consultations Consultation #1: Initial call was placed to me from Dr. Dotson. We discussed case. Patient will need nephrostomy tubes. Patient's respiratory status tolerates discharge after procedure the patient go home. Otherwise, the patient will need admitted for respiratory management as well as nephrostomy tube placement Consultation #2: Discussed with interventional radiology, patient will need INR. Patient can then go to the radiology suite for nephrostomy tubes. Consultation #3: Discussed with pharmacy, pt tolerated rocephin in the past. Vital Signs Temperature 98.1 F 12/10/18 10:14 Pulse Rate 84 12/10/18 10:14 Respiratory Rate 18 12/10/18 10:14 Blood Pressure 165/75 12/10/18 10:14 O2 Sat by Pulse Oximetry 93 12/10/18 10:14 Temperature 97.4 F L 12/11/18 20:40 Pulse Rate 62 12/11/18 20:40 Respiratory Rate 15 12/11/18 20:40 Blood Pressure 127/76 12/11/18 20:40 O2 Sat by Pulse Oximetry 98 12/11/18 20:40 Oxygen Delivery Oxygen Delivery Nasal Cannula Medical Decision Making - Lab Data Result diagrams: 12/11/18 01:30 12/11/18 01:30 Lab Results 12/10/18 12/10/18 12/10/18 Range/Units 10:47 10:47 10:47 WBC 15.9 H (4.3-11.1) K/mcL RBC 3.68 L (4.19-5.50) M/mcL Hgb 10.7 L (12.9-16.9) g/dL Hct 31.9 L (37.5-50.1) % MCV 86.7 (83.0-100.0) fL MCH 29.1 (28.0-33.3) pg MCHC 33.5 (31.6-35.5) g/dL RDW 14.0 (11.5-14.5) % Plt Count 292 (140-400) K/mcL MPV 8.1 L (9.4-12.4) fL Immature Gran % 0.6 (0-4) % Seg Neutrophils % 88.2 % Lymphocytes % 3.8 % Monocytes % 6.8 % Eosinophils % 0.3 % Basophils % 0.3 % Neutrophils # 14.1 H (1.6-8.9) K/mcL Lymphocytes # 0.6 (0.6-4.6) K/mcL Monocytes # 1.1 (0.0-1.3) K/mcL Eosinophils # 0.0 (0.0-0.6) K/mcL Basophils # 0.0 (0.0-0.2) K/mcL PT (9.4-12.1) Seconds INR Sodium 128 L (136-145) mEq/L Potassium 5.0 (3.5-5.1) mEq/L Chloride 91 L (98-107) mEq/L Carbon Dioxide 23 (23-29) mEq/L BUN 92 H (8-23) mg/dL Creatinine 5.48 H (0.70-1.30) mg/dL Est GFR ( Amer) 12 L (> 60) Est GFR (Non-Af Amer) 10 L (> 60) BUN/Creatinine Ratio 17 (6-26) Glucose 83 (70-105) mg/dL Calculated Osmolality 293 (280-300) Calcium 9.1 (8.6-10.3) mg/dL Troponin I 0.10 H* (< 0.04) ng/mL B-Natriuretic Peptide 351 H (Less than 100) pg/mL 12/10/18 Range/Units 11:50 WBC (4.3-11.1) K/mcL RBC (4.19-5.50) M/mcL Hgb (12.9-16.9) g/dL Hct (37.5-50.1) % MCV (83.0-100.0) fL MCH (28.0-33.3) pg MCHC (31.6-35.5) g/dL RDW (11.5-14.5) % Plt Count (140-400) K/mcL MPV (9.4-12.4) fL Immature Gran % (0-4) % Seg Neutrophils % % Lymphocytes % % Monocytes % % Eosinophils % % Basophils % % Neutrophils # (1.6-8.9) K/mcL Lymphocytes # (0.6-4.6) K/mcL Monocytes # (0.0-1.3) K/mcL Eosinophils # (0.0-0.6) K/mcL Basophils # (0.0-0.2) K/mcL PT 13.6 H (9.4-12.1) Seconds INR 1.2 Sodium (136-145) mEq/L Potassium (3.5-5.1) mEq/L Chloride (98-107) mEq/L Carbon Dioxide (23-29) mEq/L BUN (8-23) mg/dL Creatinine (0.70-1.30) mg/dL Est GFR ( Amer) (> 60) Est GFR (Non-Af Amer) (> 60) BUN/Creatinine Ratio (6-26) Glucose (70-105) mg/dL Calculated Osmolality (280-300) Calcium (8.6-10.3) mg/dL Troponin I (< 0.04) ng/mL B-Natriuretic Peptide (Less than 100) pg/mL
[2018-12-10 11:00] LABS: Basophils % 0.3 %; Eosinophils % 0.3 %; Hematocrit 31.9 % (37.5-50.1); Hemoglobin 10.7 g/dL (12.9-16.9); Immature Granulocytes % 0.6 % (0-4); Lymphocytes # 0.6 K/mcL (0.6-4.6); Lymphocytes % 3.8 %; Mean Corpuscular HGB Conc 33.5 g/dL (31.6-35.5); Mean Corpuscular Hemoglobin 29.1 pg (28.0-33.3); Mean Corpuscular Volume 86.7 fL (83.0-100.0); Mean Platelet Volume 8.1 fL (9.4-12.4); Monocytes # 1.1 K/mcL (0.0-1.3); Monocytes % 6.8 %; Neutrophils # 14.1 K/mcL (1.6-8.9); Platelet Count 292 K/mcL (140-400); Red Blood Count 3.68 M/mcL (4.19-5.50); Segmented Neutrophils % 88.2 %
[2018-12-10 11:20] LABS: Calcium 9.1 mg/dL (8.6-10.3)
[2018-12-10 11:22] LABS: Troponin I 0.1 ng/mL (< 0.04)
[2018-12-10] MEDS ORDERED: Azithromycin 500 MG in D5% in Water 250 ML IVPB ONE (11:49)
[2018-12-10] MEDS ORDERED: cefTRIAXone 1,000 MG in Water for inj. (sterile) 20 ML 10 ML IVP ONE (11:49)
[2018-12-10] MEDS ORDERED: 0.9 % Sodium Chloride 500 ML IVC ONE (11:50)
[2018-12-10 12:07] LABS: INR 1.2; Prothrombin Time 13.6 Seconds (9.4-12.1)
[2018-12-10] MEDS ORDERED: Naloxone 0.4 MG/ML INJ IVP PRN (12:19)
[2018-12-10] MEDS ORDERED: 0.9 % Sodium Chloride 500 ML ONE (12:45)
[2018-12-10] MEDS ORDERED: *HR* FentaNYL (PF) 100 MCG/2 ML VIAL IVP ONE (14:48)
[2018-12-10] MEDS ORDERED: *HR* FentaNYL (PF) 100 MCG/2 ML VIAL ONE (14:51)
[2018-12-10] MEDS ORDERED: Isovue-300 50 ML VIAL IVP ONE (15:09)
--- NOTE | 2018-12-10 15:14 | IR Procedure Note ---
Date of procedure: 12/10/18 Consent Obtained: Written consent Timeout: Correct patient and procedure verified, Correct site verified, Time out performed, Skin prep completed Local anesthetic: Lidocaine 1% Indications: bilateral hydronephrosis Procedure Performed: bilateral nephrostomy Was there an communication assistant present: No Site/Technique: both kidneys Results/Findings: hydronephrosis alex, clear urine, no sign of infection Estimated blood loss (cc): 0 Complications: None; Tolerated procedure well Post Procedure Treatment Plan: drain to bags Specimen: NA
--- NOTE | 2018-12-10 15:53 | Internal Med History&Physical ---
Date of Encounter: 12/10/18 Time of Encounter: 17:00 Internal Medicine - H&P: HPI Chief complaint: Shortness of breath, inabilty to urinate History of present illness: Mr. Johnston is a 78 year old male with pmh of bladder cancer, COPD, GERD presenting with complaints of lower back pain, shortness of breath and an inability to urinate for a couple of days. Patient is known to the urology service for bladder cancer with metastases and he had a recent transurethral resection of his bladder tumor. He complains of having been unable to urinate and has been having intermittent lower back pain. He also complains of shortness of breath for about 4 days and has a cough productive of green phlegm. he admits to occasional wheezing, denies any fevers, chills, nausea or vomiting or any other acute symptoms. In the ER, a chest xray was done showing a pneumonia and a CT abdomen from 12/02 showed diffuse bladder wall thickening consistent with malignancy and and large amount of right sided hydronephrosis. He was supposed to have had nephrostomy tubes placed but he missed his initial appointment. IR was consulted from the ER and he had bilateral nephrostomy tubes placed before getting to the floor and he is being admitted for further management. Past Med Surg Social Fam HX - Past Medical History Medical history: asthma, COPD, GERD, other Additional medical history: bladder tumor. pulmonary emphysema. chronic respiratory failure with hypoxia. anxiety Psychiatric history: no psych history - Past Surgical History Surgical History: no surgical history Additional surgical history: bladder surgery - Social History Smoking Status: Former smoker Smokeless Tobacco Status: No Alcohol use: none Drug use: none - Family History Sister Hx Family Cancer: Yes (Breast cancer) Internal Medicine - H&P: Meds ALPRAZolam [Xanax 1 MG Tablet] 1 mg PO BID PRN 10/08/17 [History] Albuterol Sulfate [Ventolin Hfa] 2 puff IH Q4H PRN 10/08/17 [History] Fluticasone Propionate Nasal [Flonase] 2 spr NS DAILY 10/08/17 [History] Montelukast [Singulair] 10 mg PO QPM 10/08/17 [History] Ranitidine HCl [Zantac] 300 mg PO QPM 10/08/17 [History] Fluticasone/Salmeterol [Advair 250-50 Diskus] 1 puff IH BID 11/20/17 [History] Cetirizine HCl [Zyrtec] 10 mg PO DAILY 05/03/18 [History] Omeprazole [PriLOSEC] 20 mg PO QAM 05/03/18 [History] Tamsulosin [Flomax] 0.4 mg PO DAILY 05/03/18 [History] Hyoscyamine SL [Levsin Sl] 0.125 mg SL Q4HR PRN 11/22/18 [History] Iron Ps Complex/B12/Folic Acid [Iferex 150 Forte Capsule] 1 each PO DAILY 11/22/18 [History] HYDROcodone/Acet 5/325 mg [Rosanky 5-325 mg] 1 tab PO Q6H PRN 12/10/18 [History] Ipratropium/Albuterol Neb [Duoneb] 3 ml IH Q6HR PRN 12/10/18 [History] Sennosides/Docusate Sodium [Docusate Sodium-Senna Tablet] 1 tab PO BID PRN 12/10/18 [History] Allergy/AdvReac Type Severity Reaction Status Date / Time cephalexin [From Keflex] Allergy Itching Verified 12/04/18 16:34 ciprofloxacin Allergy Itching Verified 12/04/18 16:34 oxybutynin Allergy Itching Verified 12/04/18 16:34 tiotropium AdvReac Vomiting Verified 12/04/18 16:34 [From Spiriva with HandiHaler] All Systems PM: A 10-system review of systems was performed and is negative for pertinent findings except as documented above in the HPI. - Constitutional Constitutional: weight loss, no chills, no fever(s), no night sweats - EENT Eyes: no change in vision, no discharge, no pain, no photophobia Ears: no ear discharge, no ear pain, no tinnitus Nose, mouth and throat: no dysphagia, no nasal discharge, no neck pain, no sore throat - Cardiovascular Cardiovascular ROS IM: no chest pain, no diaphoresis, no dyspnea, no lightheadedness, no palpitations, no syncope - Respiratory Respiratory: cough, no dyspnea, no wheezing, no excessive phlegm production - Gastrointestinal Gastrointestinal: no abdominal pain, no diarrhea, no hematemesis, no hematochezia, no melena, no nausea, no vomiting - Genitourinary Genitourinary ROS male: difficulty urinating - Musculoskeletal Musculoskeletal ROS IM: no numbness, no tingling - Integumentary Integumentary IM: no rash, no unusual bruising - Neurological Neurological ROS: no confusion, no convulsions, no focal weakness, no numbness, no tingling, no tremor(s) - Hematologic/Lymphatic Hematologic/Lymphatic: no easy bruising - Constitutional Vitals: Temp Pulse Resp BP Pulse Ox 98.2 F 82 16 148/79 93 12/10/18 15:44 12/10/18 15:44 12/10/18 15:44 12/10/18 15:44 12/10/18 15:44 Exam: Cachectic elderly male Mild wheezes Bilateral nephrostomy tubes in place and draining - Head Head exam: Present: atraumatic, normocephalic - Eye Eye exam: Present: PERRL, conjuntiva pink, sclera anicteric Pupils: Present: PERRL - Neck Neck exam general surgery: Present: supple, trachea midline. Absent: lymphadenopathy - Respiratory Respiratory exam: Present: decreased breath sounds, wheezes. Absent: accessory muscle use, rales, rhonchi - Cardiovascular Cardiovascular exam: Present: RRR, +S1, +S2. Absent: diastolic murmur, gallop, rubs, systolic murmur - GI/Abdominal GI/Abdominal exam: Present: normal bowel sounds, soft, no peritoneal signs. Absent: distended, tenderness - Extremities Exam Extremities exam: Present: warm, radial pulses palpable and symmetrical. Absent: calf tenderness, cyanotic, pedal edema - Neurological Exam Neurological exam: Present: CN II-XII intact, oriented X3, no focal deficits. Absent: pronater drift, facial droop, speech deficit - Skin Skin exam: Present: dry, intact Internal Med - H&P Results - Labs CBC & Chem 7: 12/10/18 10:47 12/10/18 10:47 Labs: Short CBC 12/10/18 Range/Units 10:47 WBC 15.9 H (4.3-11.1) K/mcL Hgb 10.7 L (12.9-16.9) g/dL Hct 31.9 L (37.5-50.1) % Plt Count 292 (140-400) K/mcL Neutrophils # 14.1 H (1.6-8.9) K/mcL BMP 12/10/18 10:47 Sodium 128 L Potassium 5.0 Chloride 91 L Carbon Dioxide 23 BUN 92 H Creatinine 5.48 H Glucose 83 Calcium 9.1 Cardiac Enzymes 12/10/18 Range/Units 10:47 Troponin I 0.10 H* (< 0.04) ng/mL - Impressions ITS Impressions Chest X-Ray 12/10/18 10:47 IMPRESSION: Increased airspace opacification in the right lower lung could represent pneumonia D/ / Familia Perez MD / Familia Perez MD Interpreting Provider: Familia Perez MD - Assessment and Plan (1) Acute renal failure Current Visit: Yes Status: Acute Assessment and plan: Pt has urinary retention and acute renal failure likely secondary to obstruction from bladder mass CT done showing significant hydronephrosis. Patient had bilateral nephrostomy tubes placed by IR and tubes are draining Will continue IV fluids. Urology consulted and renal consulted and appreciate recs Qualifiers: Qualified Code(s): N17.9 - Acute kidney failure, unspecified (2) Acute exacerbation of chronic obstructive airways disease Current Visit: Yes Status: Acute Assessment and plan: Comes in with shortness of breath, coughing and mild wheezes Will start in nebs, po steroids and antibiotics with ceftriaxone and azithromycin (3) Community acquired pneumonia Current Visit: Yes Status: Acute Assessment and plan: CXR shows new infiltrate. Obtain cultures. Start on ceftriaxone and azithromycin Qualifiers: Qualified Code(s): J18.9 - Pneumonia, unspecified organism (4) Hydronephrosis Current Visit: Yes Status: Acute Assessment and plan: See #1. Pt is s/p nephrostomy tube placement. Outpatient followup with urology Qualifiers: Hydronephrosis type: other Qualified Code(s): N13.39 - Other hydronephrosis (5) Bladder cancer Current Visit: Yes Status: Acute Assessment and plan: Metastatic bladder cancer. Oncology consulted and appreciate recs Qualifiers: Bladder location: unspecified site Qualified Code(s): C67.9 - Malignant neoplasm of bladder, unspecified (6) Elevated troponin Current Visit: Yes Status: Acute Assessment and plan: Likely secondary to deman. first troponin was 0.10 trneding down to 0.08. Denies chest pain. Will consider cardiac workup / cardiology consult if indicated/ if troponins trend up (7) Hyponatremia Current Visit: Yes Status: Acute Assessment and plan: likely secondary to dehydration. Will continue fluids with normal saline and monitor sodium levels (8) DVT prophylaxis Current Visit: Yes Status: Acute Assessment and plan: heparins sc - Time Spent With Patient Total time spent is greater than 50% in coordination of care (as documented) at patient's floor/unit and/or counseling patient:
[2018-12-10] MEDS ORDERED: MethylPREDNISolone 40 MG/ML VIAL IVP SCH (16:00)
--- NOTE | 2018-12-10 16:39 | Urology - Consult Note ---
Date of Encounter: 12/10/18 Time of Encounter: 16:37 - Assessment and Plan (1) Hydronephrosis Current Visit: Yes Status: Acute Assessment and plan: 78-year-old man with bilateral hydronephrosis secondary to locally advanced bladder cancer. He now has bilateral nephrostomy tubes. We will continue these tubes for drainage. Hopefully this will improve his renal function. No further urologic intervention needed at this time. Qualifiers: Hydronephrosis type: other Qualified Code(s): N13.39 - Other hydronephrosis (2) Bladder cancer Current Visit: No Status: Acute Assessment and plan: We discussed his CT scan. He does have an enlarged pre-aortic lymph node. This is concerning for metastatic bladder cancer. I would recommend further follow- up with medical oncology. Qualifiers: Bladder location: unspecified site Qualified Code(s): C67.9 - Malignant neoplasm of bladder, unspecified (3) Hematuria Current Visit: No Status: Acute Assessment and plan: His urine appears clear now. Continue Martinez catheter and nephrostomy tubes. Urology will monitor. Qualifiers: Hematuria type: gross Qualified Code(s): R31.0 - Gross hematuria Urology CN:HPI Consult date: 12/10/18 Reason for consult Urology: Hydronephrosis Requesting physician: Naeem Camacho History of present illness: 78-year-old gentleman who is well-known to the urology service is seen in consultation for bladder cancer and bilateral hydronephrosis. He was recently admitted from the emergency room and had bilateral neph tubes placed. He still has an indwelling Martinez catheter. He recently underwent a transurethral resection of bladder tumor which showed high-grade muscle invasive bladder cancer. He had a follow-up CT of the abdomen and pelvis which did show retroperitoneal lymphadenopathy. Today he is feeling well. He denies any flank pain. He tolerated placement of the nephrostomy tubes well. Past Med Surg Social Fam HX - Past Medical History Medical history: asthma, COPD, GERD, other Additional medical history: bladder tumor. pulmonary emphysema. chronic respiratory failure with hypoxia. anxiety Psychiatric history: no psych history - Past Surgical History Surgical History: no surgical history Additional surgical history: bladder surgery - Social History Smoking Status: Former smoker Smokeless Tobacco Status: No Alcohol use: none Drug use: none - Family History Sister Hx Family Cancer: Yes (Breast cancer) Medications and Allergies ALPRAZolam [Xanax 1 MG Tablet] 1 mg PO BID PRN 10/08/17 [History] Albuterol Sulfate [Ventolin Hfa] 2 puff IH Q4H PRN 10/08/17 [History] Fluticasone Propionate Nasal [Flonase] 2 spr NS DAILY 10/08/17 [History] Montelukast [Singulair] 10 mg PO QPM 10/08/17 [History] Ranitidine HCl [Zantac] 300 mg PO QPM 10/08/17 [History] Fluticasone/Salmeterol [Advair 250-50 Diskus] 1 puff IH BID 11/20/17 [History] Cetirizine HCl [Zyrtec] 10 mg PO DAILY 05/03/18 [History] Omeprazole [PriLOSEC] 20 mg PO QAM 05/03/18 [History] Tamsulosin [Flomax] 0.4 mg PO DAILY 05/03/18 [History] Hyoscyamine SL [Levsin Sl] 0.125 mg SL Q4HR PRN 11/22/18 [History] Iron Ps Complex/B12/Folic Acid [Iferex 150 Forte Capsule] 1 each PO DAILY 11/22/18 [History] HYDROcodone/Acet 5/325 mg [[place]uck 5-325 mg] 1 tab PO Q6H PRN 12/10/18 [History] Ipratropium/Albuterol Neb [Duoneb] 3 ml IH Q6HR PRN 12/10/18 [History] Sennosides/Docusate Sodium [Docusate Sodium-Senna Tablet] 1 tab PO BID PRN 12/10/18 [History] Allergy/AdvReac Type Severity Reaction Status Date / Time cephalexin [From Keflex] Allergy Itching Verified 12/04/18 16:34 ciprofloxacin Allergy Itching Verified 12/04/18 16:34 oxybutynin Allergy Itching Verified 12/04/18 16:34 tiotropium AdvReac Vomiting Verified 12/04/18 16:34 [From Spiriva with HandiHaler] Review of Systems - Constitutional no chills, no fever(s) - EENT Nose, mouth and throat: no dizziness - Cardiovascular no chest pain - Respiratory no dyspnea - Gastrointestinal no nausea, no vomiting - Genitourinary flank pain, hematuria - Musculoskeletal no back pain - Integumentary no erythema, no rash - Neurological no weakness - Psychiatric no suicidal ideation - Hematologic/Lymphatic no easy bleeding - Allergic/Immunologic no wheezing Exam Initial Vital Signs Temp Pulse Resp BP Pulse Ox 98.1 F 84 18 165/75 93 12/10/18 10:14 12/10/18 10:14 12/10/18 10:14 12/10/18 10:14 12/10/18 10:14 - General physical appearance Present: well developed, well nourished, no distress - Eyes Absent: icteric - ENT Present: normal nares - Neck Present: trachea midline - Respiratory Present: normal respiratory effort - Cardiovascular Cardiovascular exam IM: RRR - Abdomen Abdomen: Present: soft (Bilateral nephrostomy tubes in place with clear to light pink urine.) - Genitourinary other (Martinez catheter in place with clear urine.) - Integumentary Present: no rash - Neurologic Present: normal coordination - Musculoskeletal Present: other (Normal range of motion) Urology Results - Labs 12/10/18 10:47 12/10/18 10:47 Abnormal lab results WBC 15.9 K/mcL (4.3-11.1) H 12/10/18 10:47 RBC 3.68 M/mcL (4.19-5.50) L 12/10/18 10:47 Hgb 10.7 g/dL (12.9-16.9) L 12/10/18 10:47 Hct 31.9 % (37.5-50.1) L 12/10/18 10:47 MPV 8.1 fL (9.4-12.4) L 12/10/18 10:47 14.1 K/mcL (1.6-8.9) H 12/10/18 10:47 PT 13.6 Seconds (9.4-12.1) H 12/10/18 11:50 Sodium 128 mEq/L (136-145) L 12/10/18 10:47 Chloride 91 mEq/L (98-107) L 12/10/18 10:47 BUN 92 mg/dL (8-23) H 12/10/18 10:47 5.48 mg/dL (0.70-1.30) H 12/10/18 10:47 Est GFR ( Amer) 12 (> 60) L 12/10/18 10:47 Est GFR (Non-Af Amer) 10 (> 60) L 12/10/18 10:47 0.10 ng/mL (< 0.04) H* 12/10/18 10:47 B-Natriuretic Peptide 351 pg/mL (Less than 100) H 12/10/18 10:47 Diabetes panel 12/10/18 Range/Units 10:47 Sodium 128 L (136-145) mEq/L Potassium 5.0 (3.5-5.1) mEq/L Chloride 91 L (98-107) mEq/L Carbon Dioxide 23 (23-29) mEq/L BUN 92 H (8-23) mg/dL Creatinine 5.48 H (0.70-1.30) mg/dL Glucose 83 (70-105) mg/dL Calcium 9.1 (8.6-10.3) mg/dL Calcium panel 12/10/18 Range/Units 10:47 Calcium 9.1 (8.6-10.3) mg/dL Pituitary panel 12/10/18 Range/Units 10:47 Sodium 128 L (136-145) mEq/L Potassium 5.0 (3.5-5.1) mEq/L Chloride 91 L (98-107) mEq/L Carbon Dioxide 23 (23-29) mEq/L BUN 92 H (8-23) mg/dL Creatinine 5.48 H (0.70-1.30) mg/dL Glucose 83 (70-105) mg/dL Calcium 9.1 (8.6-10.3) mg/dL Adrenal panel 12/10/18 Range/Units 10:47 Sodium 128 L (136-145) mEq/L Potassium 5.0 (3.5-5.1) mEq/L Chloride 91 L (98-107) mEq/L Carbon Dioxide 23 (23-29) mEq/L BUN 92 H (8-23) mg/dL Creatinine 5.48 H (0.70-1.30) mg/dL Glucose 83 (70-105) mg/dL Calcium 9.1 (8.6-10.3) mg/dL All other labs normal. - Imaging CT scan - abdomen: report reviewed, image reviewed CT scan - pelvis: report reviewed, image reviewed Consult Discharge Plan - Plan Referrals: Angel Harrell MD [Primary Care Provider] -
[2018-12-10] MEDS: Ipratropium/Albuterol Neb 3 ML IH SCH ×3 (17:03→23:28)
[2018-12-10] MEDS: Famotidine 20 MG TABLET PO SCH (18:02)
[2018-12-10] MEDS: 0.9 % Sodium Chloride 1,000 ML IVC SCH (18:46)
[2018-12-10] MEDS: *HR* Heparin 5,000 UNIT/ML VIAL SQ SCH (18:55)
[2018-12-10] MEDS: Budesonide/Formoterol 160/4.5 1 PUFF INH IH SCH (19:49)
[2018-12-11] MEDS: ALPRAZolam 1 MG TABLET PO PRN ×3 (00:37→22:25)
[2018-12-11 01:45] LABS: Hematocrit 27.9 % (37.5-50.1); Hemoglobin 9.5 g/dL (12.9-16.9); Immature Granulocytes % 0.3 % (0-4); Lymphocytes # 0.2 K/mcL (0.6-4.6); Lymphocytes % 2.7 %; Mean Corpuscular HGB Conc 34.1 g/dL (31.6-35.5); Mean Corpuscular Hemoglobin 29.1 pg (28.0-33.3); Mean Corpuscular Volume 85.3 fL (83.0-100.0); Mean Platelet Volume 8.2 fL (9.4-12.4); Monocytes # 0.1 K/mcL (0.0-1.3); Monocytes % 1.8 %; Neutrophils # 6.3 K/mcL (1.6-8.9); Platelet Count 263 K/mcL (140-400); Red Blood Count 3.27 M/mcL (4.19-5.50); Segmented Neutrophils % 95.2 %
[2018-12-11 02:05] LABS: Calcium 8.5 mg/dL (8.6-10.3); Magnesium 2.1 mg/dL (1.6-2.6); Phosphorous 3.6 mg/dL (2.7-4.5); Potassium 4.5 mEq/L (3.5-5.1)
[2018-12-11 02:12] LABS: Platelet Estimate Normal (Normal)
[2018-12-11] MEDS: Ipratropium/Albuterol Neb 3 ML IH SCH ×6 (03:36→23:59)
[2018-12-11] MEDS: *HR* Heparin 5,000 UNIT/ML VIAL SQ SCH ×2 (05:22→17:58)
[2018-12-11] MEDS: Budesonide/Formoterol 160/4.5 1 PUFF INH IH SCH ×2 (07:27→19:37)
[2018-12-11] MEDS: 0.9 % Sodium Chloride 1,000 ML IVC SCH ×3 (07:40→08:13)
--- NOTE | 2018-12-11 08:12 | Internal Med Progress Note ---
Hospitalist Progress Note - Encounter Date of Encounter: 12/11/18 Time of Encounter: 07:54 - Subjective Interval History: Patient seen and examined this point bedside. No acute overnight events. Denies new complaints. Denies any chest pain or shortness of breath. Denies any abdominal pain or back pain. Did mention some on and off chest pain before for a few days along with a productive cough and leg swelling as well for few months - Exam Vitals: Temp Pulse Resp BP Pulse Ox 98.4 F 72 20 125/70 96 12/11/18 05:13 12/11/18 05:13 12/11/18 05:13 12/11/18 05:13 12/11/18 05:21 Exam: General: In no acute distress. thin build cachectic Respiratory exam: CTAB. no accessory muscle use, rales, rhonchi, wheezes Cardiovascular exam: RRR, +S1, +S2. no murmur, gallop, rubs. GI/Abdominal exam: Non-tender, Non-distended, soft, no peritoneal signs. b/l nephrostomy tubes in place draining. Extremities exam: 1+ pedal edema, pulses palpable in b/l lower extremities. no calf tenderness Neurological exam: CN II-XII intact, AO X3, no focal deficits. Skin exam: No skin rash - Assessment and Plan (1) Acute exacerbation of chronic obstructive airways disease Current Visit: Yes Status: Acute (2) DVT prophylaxis Current Visit: Yes Status: Acute (3) Bladder cancer Current Visit: Yes Status: Acute (4) Hydronephrosis Current Visit: Yes Status: Acute (5) Acute renal failure Current Visit: Yes Status: Acute (6) Hyponatremia Current Visit: Yes Status: Acute (7) Community acquired pneumonia Current Visit: Yes Status: Acute (8) Elevated troponin Current Visit: Yes Status: Acute - Summary of Assessment and Plan Summary of Assessment and Plan: Acute renal failure - with urinary retention. likely post obstructive in nature from locally advanced bladder ca - s/p IR guided nephrostomy b/l - renal function improving. Good urine output in nephrostomy. Lt>Rt. - Urology and nephrology consulted. recommendation appreciated. - decreased iVF COPD exacerbation - On empiric antibiotics, po steroids and duonebs Community acquired pneumonia - CXR with infiltrate. - f/u blood cultures. - on ceftriaxone and azithromycin - f/u urine ag Hydronephrosis - as above Bladder cancer - Locally advanced bladder ca. Oncology consulted and appreciate recs Elevated troponin - likely demand - trop trending down. No chest pain now. some cp before with cough. - get EKG. - elevated BNP. No echo in past or cardiology noted. Will get echo to further evaluate. Hyponatremia - improved after procedure and ivf - deccrease ivf - monitor for now DVT prophylaxis - heparins sc - Time Spent with Patient Total time spent is greater than 50% in coordination of care (as documented) at patient's floor/unit and/or counseling patient: Internal Medicine: Result - Labs CBC & Chem 7: 12/11/18 01:30 12/11/18 01:30 Labs: Short CBC 12/10/18 12/11/18 Range/Units 10:47 01:30 WBC 15.9 H 6.6 D (4.3-11.1) K/mcL Hgb 10.7 L 9.5 L (12.9-16.9) g/dL Hct 31.9 L 27.9 L (37.5-50.1) % Plt Count 292 263 (140-400) K/mcL Neutrophils # 14.1 H 6.3 (1.6-8.9) K/mcL BMP 12/10/18 12/11/18 10:47 01:30 Sodium 128 L 135 L Potassium 5.0 4.5 Chloride 91 L 99 Carbon Dioxide 23 24 BUN 92 H 73 H Creatinine 5.48 H 3.26 H Glucose 83 259 H Calcium 9.1 8.5 L Cardiac Enzymes 12/10/18 12/10/18 12/11/18 Range/Units 10:47 16:38 01:30 Troponin I 0.10 H* 0.08 H* 0.06 H* (< 0.04) ng/mL - ABG Interpretation ABG results: PT/INR, D-dimer PT 13.6 Seconds (9.4-12.1) H 12/10/18 11:50 - Impressions Impressions Chest X-Ray 12/10/18 10:47 IMPRESSION: Increased airspace opacification in the right lower lung could represent pneumonia D/ / Familia Perez MD / Familia Perez MD Interpreting Provider: Familia Perez MD Consult Discharge Plan - Plan Referrals: Angel Harrell MD [Primary Care Provider] - (3) Bladder cancer Qualifiers: Bladder location: unspecified site Qualified Code(s): C67.9 - Malignant neoplasm of bladder, unspecified (4) Hydronephrosis Qualifiers: Hydronephrosis type: other Qualified Code(s): N13.39 - Other hydronephrosis (5) Acute renal failure Qualifiers: Qualified Code(s): N17.9 - Acute kidney failure, unspecified (7) Community acquired pneumonia Qualifiers: Qualified Code(s): J18.9 - Pneumonia, unspecified organism
--- NOTE | 2018-12-11 08:49 | Urology Progress Note ---
Date of Encounter: 12/11/18 Time of Encounter: 08:48 - Assessment and Plan (1) Bladder cancer Current Visit: Yes Status: Acute Assessment and plan: Renal function is improved greatly with nephrostomy tubes. We will remove Martinez catheter. Patient will likely keep nephrostomy tubes indefinitely. No further urologic intervention at this time Qualifiers: Bladder location: unspecified site Qualified Code(s): C67.9 - Malignant neoplasm of bladder, unspecified Progress Note Narrative: Status post bilateral nephrostomy tubes. Bilateral ureteral obstruction secondary to metastatic bladder cancer. States he feels okay. Objective Initial Vital Signs Temp Pulse Resp BP Pulse Ox 98.1 F 84 18 165/75 93 12/10/18 10:14 12/10/18 10:14 12/10/18 10:14 12/10/18 10:14 12/10/18 10:14 - Additional Exam Scant urine in his Martinez catheter Light hematuria and bilateral nephrostomy tubes - Labs 12/11/18 01:30 12/11/18 01:30 Diabetes panel 12/10/18 12/11/18 Range/Units 10:47 01:30 Sodium 128 L 135 L (136-145) mEq/L Potassium 5.0 4.5 (3.5-5.1) mEq/L Chloride 91 L 99 (98-107) mEq/L Carbon Dioxide 23 24 (23-29) mEq/L BUN 92 H 73 H (8-23) mg/dL Creatinine 5.48 H 3.26 H (0.70-1.30) mg/dL Glucose 83 259 H (70-105) mg/dL Calcium 9.1 8.5 L (8.6-10.3) mg/dL Calcium panel 12/10/18 12/11/18 Range/Units 10:47 01:30 Calcium 9.1 8.5 L (8.6-10.3) mg/dL Phosphorus 3.6 (2.7-4.5) mg/dL Pituitary panel 12/10/18 12/11/18 Range/Units 10:47 01:30 Sodium 128 L 135 L (136-145) mEq/L Potassium 5.0 4.5 (3.5-5.1) mEq/L Chloride 91 L 99 (98-107) mEq/L Carbon Dioxide 23 24 (23-29) mEq/L BUN 92 H 73 H (8-23) mg/dL Creatinine 5.48 H 3.26 H (0.70-1.30) mg/dL Glucose 83 259 H (70-105) mg/dL Calcium 9.1 8.5 L (8.6-10.3) mg/dL Adrenal panel 12/10/18 12/11/18 Range/Units 10:47 01:30 Sodium 128 L 135 L (136-145) mEq/L Potassium 5.0 4.5 (3.5-5.1) mEq/L Chloride 91 L 99 (98-107) mEq/L Carbon Dioxide 23 24 (23-29) mEq/L BUN 92 H 73 H (8-23) mg/dL Creatinine 5.48 H 3.26 H (0.70-1.30) mg/dL Glucose 83 259 H (70-105) mg/dL Calcium 9.1 8.5 L (8.6-10.3) mg/dL Consult Discharge Plan - Plan Referrals: Angel Harrell MD [Primary Care Provider] -
[2018-12-11] MEDS: cefTRIAXone 1,000 MG in Water for inj. (sterile) 20 ML 10 ML IVP SCH (08:50)
[2018-12-11] MEDS: Sennosides/Docusate Sodium TABLET PO PRN (08:51)
[2018-12-11] MEDS: predniSONE 20 MG TABLET PO SCH (08:51)
[2018-12-11] MEDS: Iron Polysaccharide Complex 150 MG CAPSULE PO SCH (08:51)
[2018-12-11] MEDS: Loratadine 10 MG TABLET PO SCH (08:51)
--- NOTE | 2018-12-11 09:42 | Nephrology Consult Note ---
Date of Encounter: 12/11/18 Time of Encounter: 09:41 Assessment and Plan (1) Acute renal failure Current Visit: Yes Status: Acute Patient appears with acute kidney injury secondary to urinary tract obstruction. He is status post nephrostomy tubes and his creatinine has come down significantly. I anticipate his renal function will go back to baseline. He needs to maintain adequate hydration during the postobstructive diuresis. I recommend avoiding nephrotoxins. I recommend adjusting medications for renal function. Patient had a symptomatically hyponatremia that was improved overnight. At this time his renal function is improving and I anticipate that it will continue to improve. [facility] will sign off. They for the con sult. Please call if any other questions or concerns. If his renal function does not return to baseline though free to reconsult or have the patient follow-up in clinic. Qualifiers: Qualified Code(s): N17.9 - Acute kidney failure, unspecified (2) Acute exacerbation of chronic obstructive airways disease Current Visit: Yes Status: Acute (3) Bladder cancer Current Visit: Yes Status: Acute Qualifiers: Bladder location: unspecified site Qualified Code(s): C67.9 - Malignant neoplasm of bladder, unspecified (4) Community acquired pneumonia Current Visit: Yes Status: Acute Qualifiers: Qualified Code(s): J18.9 - Pneumonia, unspecified organism (5) GERD (gastroesophageal reflux disease) Current Visit: No Status: Chronic Qualifiers: Esophagitis presence: without esophagitis Qualified Code(s): K21.9 - Gastro-esophageal reflux disease without esophagitis (6) Essential hypertension Current Visit: No Status: Suspected History of Present Illness - Reason for Consult Consult date: 12/11/18 Acute Kidney Injury - Chief Complaint JESSICA - History of Present Illness Mr. Johnston is a 78 yo man with a history of COPD presented secondary to some shortness of breath. He was found to have acute kidney injury secondary to obstruction. Nephrostomy tubes were placed prior to the patient coming to the floor. Patient was also found to have COPD exacerbation along with a community acquired pneumonia. [facility] was consult secondary to acute kidney injury. At the time my evaluation the patient reports he feels much better. He denies chest pain, shortness of breath, or any other new problem. He wants to go home. His other systems reviewed were negative. Past Med Surg Social Fam HX - Past Medical History Medical history: asthma, COPD, GERD, other Additional medical history: bladder tumor. pulmonary emphysema. chronic respiratory failure with hypoxia. anxiety Psychiatric history: no psych history - Past Surgical History Surgical History: no surgical history Additional surgical history: bladder surgery - Social History Smoking Status: Former smoker Smokeless Tobacco Status: No Alcohol use: none Drug use: none - Family History Sister Living Status: Age at : 60 Cause of : cancer Hx Family Cancer: Yes (breast) Medications and Allergies ALPRAZolam [Xanax 1 MG Tablet] 1 mg PO BID PRN 10/08/17 [History] Albuterol Sulfate [Ventolin Hfa] 2 puff IH Q4H PRN 10/08/17 [History] Fluticasone Propionate Nasal [Flonase] 2 spr NS DAILY 10/08/17 [History] Montelukast [Singulair] 10 mg PO QPM 10/08/17 [History] Ranitidine HCl [Zantac] 300 mg PO QPM 10/08/17 [History] Fluticasone/Salmeterol [Advair 250-50 Diskus] 1 puff IH BID 11/20/17 [History] Cetirizine HCl [Zyrtec] 10 mg PO DAILY 05/03/18 [History] Omeprazole [PriLOSEC] 20 mg PO QAM 05/03/18 [History] Tamsulosin [Flomax] 0.4 mg PO DAILY 05/03/18 [History] Hyoscyamine SL [Levsin Sl] 0.125 mg SL Q4HR PRN 11/22/18 [History] Iron Ps Complex/B12/Folic Acid [Iferex 150 Forte Capsule] 1 each PO DAILY 11/22/18 [History] HYDROcodone/Acet 5/325 mg [[place] 5-325 mg] 1 tab PO Q6H PRN 12/10/18 [History] Ipratropium/Albuterol Neb [Duoneb] 3 ml IH Q6HR PRN 12/10/18 [History] Sennosides/Docusate Sodium [Docusate Sodium-Senna Tablet] 1 tab PO BID PRN 12/10/18 [History] Allergy/AdvReac Type Severity Reaction Status Date / Time cephalexin [From Keflex] Allergy Itching Verified 05/04/19 16:34 ciprofloxacin Allergy Itching Verified 12/04/18 16:34 oxybutynin Allergy Itching Verified 12/04/18 16:34 tiotropium AdvReac Vomiting Verified 12/04/18 16:34 [From Spiriva with HandiHaler] Review of Systems All Systems: reviewed and no additional remarkable complaints except as stated (As documented in history of present illness) Exam - Vital Signs Vital signs: Initial Vital Signs Temp Pulse Resp BP Pulse Ox 98.1 F 84 18 165/75 93 12/10/18 10:14 12/10/18 10:14 12/10/18 10:14 12/10/18 10:14 12/10/18 10:14 Vital Signs - Last 8 Hours Temp Pulse Resp BP Pulse Ox 12/11/18 07:27 16 96 12/11/18 05:21 96 12/11/18 05:13 98.4 F 72 20 125/70 96 Intake and Output 12/10/18 12/11/18 12/11/18 23:59 07:59 15:59 Intake Total 240 / 1000 1000 / 1339 339 / 1339 Output Total 2600 / 2600 425 / 425 Balance -2360 / -1600 575 / 914 339 / 914 Intake: IV Fluids 1000 / 1099 99 / 1099 0.9 % Sodium Chloride 1,000 ML 1000 / 1089 89 / 1089 @ 125 mls/hr IVC .Q8H [facility] Rx#: [id number] Rocephin 1,000 MG In Water for inj. (sterile) 10 ML @ 600 mls/ hr IVP DAILY [facility] Rx#:[id number] Oral 240 / 240 240 / 240 Output: Left Nephrostomy 2300 / 2300 375 / 375 Right Nephrostomy 300 / 300 50 / 50 Other: Meal Dinner Percent of Meal Consumed 85% - General Appearance General appearance: well-developed, well-nourished, chronically ill, frail EENT: ATNC Neck: supple Respiratory: course breath sounds Cardiology: edema, regular rate Gastrointestinal: no tenderness Integumentary: warm and dry Neurologic: alert and oriented x3 Musculoskeletal: no cyanosis Psychiatric: mood/affect appropriate Results - Lab Results 12/11/18 01:30 12/11/18 01:30 Most recent lab results 12/11/18 01:30 Calcium 8.5 L Phosphorus 3.6 Magnesium 2.1 Consult Discharge Plan - Plan Referrals: Angel Harrell MD [Primary Care Provider] -
[2018-12-11] MEDS ORDERED: Perflutren Lipid Microsphere 1.3 ML in 0.9 % Sodium Chloride 8.7 ML IVP ONE (10:27)
[2018-12-11] MEDS: Azithromycin 500 MG in D5% in Water 250 ML IVPB SCH (14:25)
[2018-12-11] MEDS: Famotidine 20 MG TABLET PO SCH (17:58)
[2018-12-12] MEDS: Ipratropium/Albuterol Neb 3 ML IH SCH ×6 (04:35→22:47)
[2018-12-12] MEDS: *HR* Heparin 5,000 UNIT/ML VIAL SQ SCH ×2 (05:17→17:18)
[2018-12-12 05:51] LABS: Potassium 4.5 mEq/L (3.5-5.1)
[2018-12-12] MEDS: Budesonide/Formoterol 160/4.5 1 PUFF INH IH SCH ×2 (07:17→19:36)
[2018-12-12] MEDS: 0.9 % Sodium Chloride 1,000 ML IVC SCH (07:40)
[2018-12-12] MEDS: cefTRIAXone 1,000 MG in Water for inj. (sterile) 20 ML 10 ML IVP SCH (08:50)
[2018-12-12] MEDS: Loratadine 10 MG TABLET PO SCH (08:51)
[2018-12-12] MEDS: Iron Polysaccharide Complex 150 MG CAPSULE PO SCH (08:51)
[2018-12-12] MEDS: Sennosides/Docusate Sodium TABLET PO PRN (08:51)
[2018-12-12] MEDS: predniSONE 20 MG TABLET PO SCH (08:51)
--- NOTE | 2018-12-12 10:47 | Urology Progress Note ---
Date of Encounter: 12/12/18 Time of Encounter: 10:47 - Assessment and Plan (1) Bladder cancer Current Visit: Yes Status: Acute Assessment and plan: Patient alert, oriented and without significant complaints at the time of today's evaluation. He reports no spontaneous voiding symptoms removal of Martinez catheter yesterday. He does not feel pressure to urinate. He is having good urine output from bilateral nephrostomy tubes. Discussed with patient that we anticipate the bulk of patient urine output from bilateral nephrostomy tubes. Plan: No indications for urologic interventions at this time. Will continue to follow along with you. Qualifiers: Bladder location: unspecified site Qualified Code(s): C67.9 - Malignant neoplasm of bladder, unspecified Objective Initial Vital Signs Temp Pulse Resp BP Pulse Ox 98.1 F 84 18 165/75 93 12/10/18 10:14 12/10/18 10:14 12/10/18 10:14 12/10/18 10:14 12/10/18 10:14 - Labs 12/11/18 01:30 12/12/18 04:16 Diabetes panel 12/12/18 Range/Units 04:16 Sodium 141 (136-145) mEq/L Potassium 4.5 (3.5-5.1) mEq/L Chloride 101 (98-107) mEq/L Carbon Dioxide 30 H (23-29) mEq/L BUN 40 H (8-23) mg/dL Creatinine 1.43 H (0.70-1.30) mg/dL Glucose 101 (70-105) mg/dL Calcium 10.0 (8.6-10.3) mg/dL Calcium panel 12/12/18 Range/Units 04:16 Calcium 10.0 (8.6-10.3) mg/dL Pituitary panel 12/12/18 Range/Units 04:16 Sodium 141 (136-145) mEq/L Potassium 4.5 (3.5-5.1) mEq/L Chloride 101 (98-107) mEq/L Carbon Dioxide 30 H (23-29) mEq/L BUN 40 H (8-23) mg/dL Creatinine 1.43 H (0.70-1.30) mg/dL Glucose 101 (70-105) mg/dL Calcium 10.0 (8.6-10.3) mg/dL Adrenal panel 05/12/19 Range/Units 04:16 Sodium 141 (136-145) mEq/L Potassium 4.5 (3.5-5.1) mEq/L Chloride 101 (98-107) mEq/L Carbon Dioxide 30 H (23-29) mEq/L BUN 40 H (8-23) mg/dL Creatinine 1.43 H (0.70-1.30) mg/dL Glucose 101 (70-105) mg/dL Calcium 10.0 (8.6-10.3) mg/dL Consult Discharge Plan - Plan Referrals: Angel Harrell MD [Primary Care Provider] -
[2018-12-12] MEDS: Azithromycin 500 MG in D5% in Water 250 ML IVPB SCH (14:01)
--- NOTE | 2018-12-12 14:25 | Electrocardiograph Report ---
[place] [address] Test Date: 2018-12-11 Pat Name: Talon Johnston Department: 115 Room: 3A23 Gender: M Sustain Engineer: JOSE : 1940 Requested By: Darwin Horta Order Number: [id number] Reading MD: Gagan Trinidad Measurements Intervals [place] Rate: 73 P: 81 SC: 135 QRS: 79 QRSD: 96 T: 72 QT: 370 QTc: 395 Interpretive Statements SINUS RHYTHM Electronically Signed On 12-12-2018 14:23:58 EDT by Gagan Trinidad
--- NOTE | 2018-12-12 14:48 | Internal Med Progress Note ---
Hospitalist Progress Note - Encounter Date of Encounter: 12/12/18 Time of Encounter: 10:47 - Subjective Interval History: Patient seen and examined this morning at bedside. No acute overnight events. Denies any new complaints. Denies any abdominal pain. Does not have any urinary complaints or any sensation to pass urine. Nephrostomy draining well. Afebrile and hemodynamically stable. - Exam Vitals: Temp Pulse Resp BP Pulse Ox 98 F 94 18 136/74 97 12/12/18 07:35 12/12/18 07:35 12/12/18 10:57 12/12/18 07:35 12/12/18 10:57 Exam: General: In no acute distress. thin build cachectic Respiratory exam: CTAB. no accessory muscle use, rales, rhonchi, wheezes Cardiovascular exam: RRR, +S1, +S2. no murmur, gallop, rubs. GI/Abdominal exam: Non-tender, Non-distended, soft, no peritoneal signs. b/l nephrostomy tubes in place draining. Extremities exam: 1+ pedal edema, pulses palpable in b/l lower extremities. no calf tenderness Neurological exam: CN II-XII intact, AO X3, no focal deficits. Skin exam: No skin rash - Assessment and Plan (1) Acute exacerbation of chronic obstructive airways disease Current Visit: Yes Status: Acute (2) DVT prophylaxis Current Visit: Yes Status: Acute (3) Bladder cancer Current Visit: Yes Status: Acute (4) Hydronephrosis Current Visit: Yes Status: Acute (5) Acute renal failure Current Visit: Yes Status: Acute (6) Hyponatremia Current Visit: Yes Status: Acute (7) Community acquired pneumonia Current Visit: Yes Status: Acute (8) Elevated troponin Current Visit: Yes Status: Acute - Summary of Assessment and Plan Summary of Assessment and Plan: Acute renal failure - with urinary retention. likely post obstructive in nature from locally advanced bladder ca - s/p IR guided nephrostomy b/l - renal function improving with good urine - Urology and nephrology input appreciated. - IVF stopped yesterday COPD exacerbation - On empiric antibiotics, po steroids and duonebs Community acquired pneumonia - CXR with infiltrate. - blood cultures 5/10 NGTD - on ceftriaxone and azithromycin - pending urine ag Hydronephrosis - as above Bladder cancer - Locally advanced bladder ca. Oncology consulted - Has preaortic lymph nodes which may need biopsied. Could be arranged outpatient per discussion with oncology. Elevated troponin - likely demand and with JESSICA - trop trending down. No chest pain now. - elevated BNP likely from pulmonary HTN. EF 65% and mild DD. Hyponatremia - improved after procedure and ivf - now resolved DVT prophylaxis - heparins sc Patient is otherwise okay to be discharge but is weak and needs PT/OT evaluation for safe discharge. - Time Spent with Patient Total time spent is greater than 50% in coordination of care (as documented) at patient's floor/unit and/or counseling patient: Internal Medicine: Result - Labs CBC & Chem 7: 12/11/18 01:30 12/12/18 04:16 Labs: BMP 12/12/18 04:16 Sodium 141 Potassium 4.5 Chloride 101 Carbon Dioxide 30 H BUN 40 H Creatinine 1.43 H Glucose 101 Calcium 10.0 - ABG Interpretation ABG results: PT/INR, D-dimer PT 13.6 Seconds (9.4-12.1) H 12/10/18 11:50 Consult Discharge Plan - Plan Referrals: Angel Harrell MD [Primary Care Provider] - (3) Bladder cancer Qualifiers: Bladder location: unspecified site Qualified Code(s): C67.9 - Malignant neoplasm of bladder, unspecified (4) Hydronephrosis Qualifiers: Hydronephrosis type: other Qualified Code(s): N13.39 - Other hydronephrosis (5) Acute renal failure Qualifiers: Qualified Code(s): N17.9 - Acute kidney failure, unspecified (7) Community acquired pneumonia Qualifiers: Qualified Code(s): J18.9 - Pneumonia, unspecified organism
[2018-12-12] MEDS: Azithromycin 250 MG TABLET PO SCH (15:34)
[2018-12-12] MEDS ORDERED: Bisacodyl 10 MG RECTAL SUPPOSITORY RC ONE (16:00)
[2018-12-12] MEDS: Famotidine 20 MG TABLET PO SCH (17:18)
[2018-12-12] MEDS: ALPRAZolam 1 MG TABLET PO PRN (20:14)
[2018-12-13] MEDS: Ipratropium/Albuterol Neb 3 ML IH SCH ×3 (03:47→10:58)
[2018-12-13] MEDS: *HR* Heparin 5,000 UNIT/ML VIAL SQ SCH ×2 (05:16→18:21)
[2018-12-13 05:32] LABS: BUN/Creatinine Ratio 27 (6-26); Blood Urea Nitrogen 28 mg/dL (8-23); Calcium 9.4 mg/dL (8.6-10.3); Carbon Dioxide 29 mEq/L (23-29); Chloride 97 mEq/L (98-107); Glucose 106 mg/dL (70-105); Osmolality,Calculated 284 (280-300); Potassium 4.4 mEq/L (3.5-5.1); Sodium 134 mEq/L (136-145); eGFR For Non-African Americans > 60 (> 60)
[2018-12-13] MEDS: Budesonide/Formoterol 160/4.5 1 PUFF INH IH SCH ×2 (07:20→20:29)
--- NOTE | 2018-12-13 09:12 | Urology Progress Note ---
Date of Encounter: 12/13/18 Time of Encounter: 08:30 - Assessment and Plan (1) Bladder cancer Current Visit: Yes Status: Acute Assessment and plan: Patient is a 70-year-old male who presents with a history of bladder cancer. Martinez catheter has been removed, and urine output remains well with nephrostomy tubes. Nephrostomy tubes are indwelling and draining transparent, clear yellow urine bilaterally. Renal function is much improved with a serum creatinine of 1.05. Patient is planning to follow up with oncology as an outpatient to discuss periaortic lymph node biopsy. Qualifiers: Bladder location: unspecified site Qualified Code(s): C67.9 - Malignant neoplasm of bladder, unspecified Progress Note Subjective: no new complaints Narrative: Patient seen and examined sitting upright in bed eating breakfast in no apparent distress. Patient admits to some discomfort with nephrostomy tubes. Bilateral nephrostomy tubes are indwelling and draining transparent, clear yellow urine into bedside bags. Objective Initial Vital Signs Temp Pulse Resp BP Pulse Ox 98.1 F 84 18 165/75 93 12/10/18 10:14 12/10/18 10:14 12/10/18 10:14 12/10/18 10:14 12/10/18 10:14 - General physical appearance Present: well developed, no distress, moderate pain - Respiratory Present: normal expansion, normal respiratory effort - Abdomen Present: soft, non tender - Genitourinary Urine Appearance: Present: Clear. Absent: Sediment, Hematuria - Integumentary Present: no rash, no abnormal pigmentation - Musculoskeletal Present: normal posture - Psychiatric Present: oriented to time, oriented to person, oriented to place, speech is normal, memory intact - Labs 12/11/18 01:30 12/13/18 04:16 Diabetes panel 12/13/18 Range/Units 04:16 Sodium 134 L (136-145) mEq/L Potassium 4.4 (3.5-5.1) mEq/L Chloride 97 L (98-107) mEq/L Carbon Dioxide 29 (23-29) mEq/L BUN 28 H (8-23) mg/dL Creatinine 1.05 (0.70-1.30) mg/dL Glucose 106 H (70-105) mg/dL Calcium 9.4 (8.6-10.3) mg/dL Calcium panel 12/13/18 Range/Units 04:16 Calcium 9.4 (8.6-10.3) mg/dL Pituitary panel 12/13/18 Range/Units 04:16 Sodium 134 L (136-145) mEq/L Potassium 4.4 (3.5-5.1) mEq/L Chloride 97 L (98-107) mEq/L Carbon Dioxide 29 (23-29) mEq/L BUN 28 H (8-23) mg/dL Creatinine 1.05 (0.70-1.30) mg/dL Glucose 106 H (70-105) mg/dL Calcium 9.4 (8.6-10.3) mg/dL Adrenal panel 12/13/18 Range/Units 04:16 Sodium 134 L (136-145) mEq/L Potassium 4.4 (3.5-5.1) mEq/L Chloride 97 L (98-107) mEq/L Carbon Dioxide 29 (23-29) mEq/L BUN 28 H (8-23) mg/dL Creatinine 1.05 (0.70-1.30) mg/dL Glucose 106 H (70-105) mg/dL Calcium 9.4 (8.6-10.3) mg/dL Consult Discharge Plan - Plan Referrals: Angel Harrell MD [Primary Care Provider] -
[2018-12-13] MEDS: cefTRIAXone 1,000 MG in Water for inj. (sterile) 20 ML 10 ML IVP SCH (10:34)
[2018-12-13] MEDS: Iron Polysaccharide Complex 150 MG CAPSULE PO SCH (10:34)
[2018-12-13] MEDS: predniSONE 20 MG TABLET PO SCH (10:34)
[2018-12-13] MEDS: Loratadine 10 MG TABLET PO SCH (10:34)
[2018-12-13] MEDS ORDERED: Ipratropium/Albuterol Neb 3 ML IH PRN (11:43)
--- NOTE | 2018-12-13 13:03 | Discharge Summary ---
Orders not resulted at time of discharge: Pending orders 12/10/18 11:16 Urinalysis Reflex Cult & Micro [URIN] Stat 12/10/18 11:49 Culture,Blood [BC] Routine 12/10/18 12:25 Legionella Antigen [] Routine Streptococcal pneumoniae urin antigen [S. Pneumoniae Antigen] [] Routine Date of Encounter: 12/13/18 Time of Encounter: 13:03 - Discharge Diagnosis (1) Acute exacerbation of chronic obstructive airways disease Status: Acute (2) DVT prophylaxis Status: Acute (3) Bladder cancer Status: Acute Qualifiers: Bladder location: unspecified site Qualified Code(s): C67.9 - Malignant neoplasm of bladder, unspecified (4) Hydronephrosis Status: Acute Qualifiers: Hydronephrosis type: other Qualified Code(s): N13.39 - Other hydronephrosis (5) Acute renal failure Status: Acute Qualifiers: Qualified Code(s): N17.9 - Acute kidney failure, unspecified (6) Hyponatremia Status: Acute (7) Community acquired pneumonia Status: Acute Qualifiers: Qualified Code(s): J18.9 - Pneumonia, unspecified organism (8) Elevated troponin Status: Acute Hospital course: Mr. Johnston is a 78 year old male - Time Spent with Patient Total time spent providing and/or coordinating discharge services: - Discharge Medications Prescriptions: No Action Ranitidine HCl [Zantac] 300 mg PO QPM Albuterol Sulfate [Ventolin Hfa] 2 puff IH Q4H PRN PRN Reason: Dyspnea Montelukast [Singulair] 10 mg PO QPM Fluticasone Propionate Nasal [Flonase] 2 spr NS DAILY ALPRAZolam [Xanax 1 MG Tablet] 1 mg PO BID PRN PRN Reason: Anxiety Fluticasone/Salmeterol [Advair 250-50 Diskus] 1 puff IH BID Omeprazole [PriLOSEC] 20 mg PO QAM Cetirizine HCl [Zyrtec] 10 mg PO DAILY Tamsulosin [Flomax] 0.4 mg PO DAILY Iron Ps Complex/B12/Folic Acid [Iferex 150 Forte Capsule] 1 each PO DAILY Hyoscyamine SL [Levsin Sl] 0.125 mg SL Q4HR PRN PRN Reason: BLADDER SPASMS Ipratropium/Albuterol Neb [Duoneb] 3 ml IH Q6HR PRN PRN Reason: Shortness Of Breath HYDROcodone/Acet 5/325 mg [[place] 5-325 mg] 1 tab PO Q6H PRN PRN Reason: Pain Sennosides/Docusate Sodium [Docusate Sodium-Senna Tablet] 1 tab PO BID PRN PRN Reason: STOOL SOFTENER Home Medications: ALPRAZolam [Xanax 1 MG Tablet] 1 mg PO BID PRN 10/08/17 [History] Albuterol Sulfate [Ventolin Hfa] 2 puff IH Q4H PRN 10/08/17 [History] Fluticasone Propionate Nasal [Flonase] 2 spr NS DAILY 10/08/17 [History] Montelukast [Singulair] 10 mg PO QPM 10/08/17 [History] Ranitidine HCl [Zantac] 300 mg PO QPM 10/08/17 [History] Fluticasone/Salmeterol [Advair 250-50 Diskus] 1 puff IH BID 11/20/17 [History] Cetirizine HCl [Zyrtec] 10 mg PO DAILY 05/03/18 [History] Omeprazole [PriLOSEC] 20 mg PO QAM 05/03/18 [History] Tamsulosin [Flomax] 0.4 mg PO DAILY 05/03/18 [History] Hyoscyamine SL [Levsin Sl] 0.125 mg SL Q4HR PRN 11/22/18 [History] Iron Ps Complex/B12/Folic Acid [Iferex 150 Forte Capsule] 1 each PO DAILY 11/22/18 [History] HYDROcodone/Acet 5/325 mg [[place] 5-325 mg] 1 tab PO Q6H PRN 12/10/18 [History] Ipratropium/Albuterol Neb [Duoneb] 3 ml IH Q6HR PRN 12/10/18 [History] Sennosides/Docusate Sodium [Docusate Sodium-Senna Tablet] 1 tab PO BID PRN 12/10/18 [History] Allergies/Adverse Reactions: Allergy/AdvReac Type Severity Reaction Status Date / Time cephalexin [From Keflex] Allergy Itching Verified 12/04/18 16:34 ciprofloxacin Allergy Itching Verified 12/04/18 16:34 oxybutynin Allergy Itching Verified 12/04/18 16:34 tiotropium AdvReac Vomiting Verified 12/04/18 16:34 [From Spiriva with HandiHaler] Date of admission: 12/10/18 14:00 Primary care physician: Angel Harrell MD Consults: 12/10/18 11:46 Consult to Interventional Radiology [CONS] Stat Consulting Provider: Radiology Interventional Cols Reason for Consult: hydronephrosis Call Completed: Yes 12/10/18 12:18 Consult to Nephrology [CONS] Routine Consulting Provider: Kidney Sofia/SONAM/ALTHEA/ANNALISE Reason for Consult: acute renal failure Call Completed: No 12/10/18 14:37 Consult to Urology [CONS] Routine Consulting Provider: Urology Sofia Reason for Consult: bilateral hydronephrosis Call Completed: No 12/10/18 17:39 Consult to Combat Systems Officer [CONS] Routine Reason for SW Consult: pt states that he lives home alone and has had frequent falls. pt stated "i think i would benefit from home health care services" 12/10/18 18:03 Consult to Oncology [CONS] Routine Consulting Provider: [facility]ia Reason for Consult: metastatic bladder cancer Call Completed: No 12/11/18 08:17 Consult to Nutrition [CONS] Routine Comment: Consulting Provider: NUTRITION Reason for Dietary Consult: PO Supplementation 12/12/18 14:46 Consult to Occupational Therapy [CONS] Routine Comment: Evaluate, develop and implement POC Reason for Consult: improve strenght and mobility, discharge planning Does patient have active BEDREST order?: No Is patient medically & hemodynamically stable?: Yes Consult to Physical Therapy [CONS] Routine Comment: Evaluate, develop and implement POC Reason for Consult: improve strenght and mobility, discharge planning Does patient have active BEDREST order?: No Is patient medically & hemodynamically stable?: Yes - Constitutional Vitals: Temp Pulse Resp BP Pulse Ox 98.2 F 108 14 134/72 92 12/13/18 11:58 12/13/18 11:58 12/13/18 11:58 12/13/18 11:58 12/13/18 11:58 - Patient Status Condition: Fair - Discharge Instructions Follow Up With: Angel Harrell MD [Primary Care Provider] -
[2018-12-13] MEDS: Azithromycin 250 MG TABLET PO SCH (14:00)
[2018-12-13] MEDS: *HR* HYDROcodone/Acet 5/325 mg TABLET PO PRN (16:29)
--- NOTE | 2018-12-13 17:24 | Oncology Inp Consult Note ---
<Jazlyn Phelps S - Last Filed: 12/13/18 19:22> Date of Encounter: 12/13/18 Time of Encounter: 19:23 - Data of Consult Requesting Physician: Brayan Blas MD Primary Care Provider: Angel Harrell MD Medications and Allergies ALPRAZolam [Xanax 1 MG Tablet] 1 mg PO BID PRN 10/08/17 [History] Albuterol Sulfate [Ventolin Hfa] 2 puff IH Q4H PRN 10/08/17 [History] Fluticasone Propionate Nasal [Flonase] 2 spr NS DAILY 10/08/17 [History] Montelukast [Singulair] 10 mg PO QPM 10/08/17 [History] Ranitidine HCl [Zantac] 300 mg PO QPM 10/08/17 [History] Fluticasone/Salmeterol [Advair 250-50 Diskus] 1 puff IH BID 11/20/17 [History] Cetirizine HCl [Zyrtec] 10 mg PO DAILY 05/03/18 [History] Omeprazole [PriLOSEC] 20 mg PO QAM 05/03/18 [History] Tamsulosin [Flomax] 0.4 mg PO DAILY 05/03/18 [History] Hyoscyamine SL [Levsin Sl] 0.125 mg SL Q4HR PRN 11/22/18 [History] Iron Ps Complex/B12/Folic Acid [Iferex 150 Forte Capsule] 1 each PO DAILY 11/22/18 [History] HYDROcodone/Acet 5/325 mg [[place] 5-325 mg] 1 tab PO Q6H PRN 12/10/18 [History] Ipratropium/Albuterol Neb [Duoneb] 3 ml IH Q6HR PRN 12/10/18 [History] Sennosides/Docusate Sodium [Docusate Sodium-Senna Tablet] 1 tab PO BID PRN 12/10/18 [History] Allergy/AdvReac Type Severity Reaction Status Date / Time cephalexin [From Keflex] Allergy Itching Verified 12/04/18 16:34 ciprofloxacin Allergy Itching Verified 12/04/18 16:34 oxybutynin Allergy Itching Verified 12/04/18 16:34 tiotropium AdvReac Vomiting Verified 12/04/18 16:34 [From Spiriva with HandiHaler] Consult Discharge Plan - Plan Referrals: Angel Harrell MD [Primary Care Provider] - Inpatient Charges Provider: Dr. Apollo Phelps Consult - Inpatient: [id number] - Attending Attestation I examined this patient and my medical decision-making was reviewed with the Advanced Practice Nurse Shannon shirley. I agree with the documented findings, disposition and treatment plan as described except to the extent set forth below. 1. Likely metastatic bladder cancer He has superficial bladder cancer. He has refused BCG treatment in the past 2. During this admission he presented with retroperitoneal and para-aortic adenopathy. CT abdomen and pelvis with and without contrast 12/02/2018 showed diffuse bladder wall thickening. There is thickening in the right bladder wall causing possible right hydronephrosis. Also retroperitoneal adenopathy. Index lymph node 1.5 cm. May consider PET scan as an outpatient. If possible we will like to get a tissue sample. His lymph node size is fairly small. We will discuss this further at tumor board. Treatment recommendation in outpatient. We will make appointment with Dr. Ayala 3. Status post bilateral percutaneous nephrostomy tube prior IR. His acute kidney failure improved. 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 He was last seen in our office by Dr. Ayala 05/31/2018 to discuss adjuvant BCG and ultimately declined adjuvant treatment and declined any follow up with urology Now presents with dysuria, abdominal/back pain CT imaging reveals diffuse bladder thickening and retroperitoneal periaortic adenopathy concerning for metastatic bladder cancer S/P bilateral nephrostomy tube placement for noted large amount of right sided hydronephrosis on CT with JESSICA-now with improvement in renal function almost back to normal Plan: Discussed CT findings with patient at bedside He is now amendable to biopsy and wishes to discuss treatment options May pursue biopsy of RP MERVAT-plan to discuss in tumor board this week We will arrange for outpatient follow up with Dr. Ayala Otherwise, we will plan to sign off at this time Qualifiers: Bladder location: unspecified site Qualified Code(s): C67.9 - Malignant neoplasm of bladder, unspecified - Data of Consult Patient: known to practice within the last 3 years Consult date: 12/13/18 Requesting Physician: Brayan Blas MD Primary Care Provider: Angel Harrell MD - Consult Narrative Reason for consult: papillary carcinoma urinary bladder History of present illness: Mr. Johnston is a 78 year old male known to Dr. 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 He was last seen in our office by Dr. Ayala 05/31/2018 to discuss adjuvant BCG. After much discussion, patient had declined adjuvant treatment and declined any follow up with urology although highly recommended and encouraged to him. He presented to [facility] 12/10/2018 with report of lower back pain, SOB and dysuria. In the ER, a chest xray was done showing a pneumonia and a CT abdomen from 12/02 showed diffuse bladder wall thickening consistent with malignancy, large amount of right sided hydronephrosis as well as Metastatic retroperitoneal periaortic adenopathy. He was supposed to have had nephrostomy tubes placed but he missed his initial appointment. IR was consulted from the ER and he had bilateral nephrostomy tubes placed Past Med Surg Social Fam HX - Past Medical History Medical history: asthma, COPD, GERD, other Additional medical history: bladder tumor. pulmonary emphysema. chronic respiratory failure with hypoxia. anxiety Psychiatric history: no psych history - Past Surgical History Surgical History: no surgical history Additional surgical history: bladder surgery - Social History Smoking Status: Former smoker Smokeless Tobacco Status: No Alcohol use: none Drug use: none - Family History Sister Living Status: Age at : 60 Cause of : cancer Hx Family Cancer: Yes (breast) Constitutional: Present: anorexia, fatigue. Absent: chills, fever(s), headache (s), night sweats, weight loss Eyes: Absent: change in vision Nose, mouth and throat: Absent: dysphagia, odynophagia Cardiovascular: Absent: chest pain Respiratory: Present: dyspnea on exertion Gastrointestinal: Present: abdominal pain. Absent: nausea, vomiting Genitourinary: Present: as per HPI Musculoskeletal: Present: muscle weakness Integumentary: Absent: rash, wounds Neurological: Absent: confusion, focal weakness Psychiatric: Present: as per HPI Hematologic/Lymphatic: Present: as per HPI Oncology - Exam - Constitutional General appearance: cooperative, no acute distress, thin, no febrile - Head Head exam: Present: atraumatic - ENT ENT exam: Present: mucous membranes moist, normal oropharynx - Respiratory Respiratory exam: Present: CTAB. Absent: respiratory distress - Cardiovascular Cardiovascular exam: Present: RRR - GI/Abdominal GI/Abdominal exam: Present: normal bowel sounds, soft, tenderness. Absent: guarding, rebound - Extremities Exam Extremities exam: Present: normal inspection. Absent: calf tenderness - Neurological Exam Neurological exam: Present: alert, oriented X3, no focal deficits, strengths equal and symetr throughout - Psychiatric Psychiatric exam: Present: normal affect, normal mood - Skin Skin exam: Present: dry, pallor, warm
[2018-12-13] MEDS: Famotidine 20 MG TABLET PO SCH (18:21)
[2018-12-13] MEDS: Hyoscyamine SL 0.125 MG TAB.SUBL SL PRN (18:21)
--- NOTE | 2018-12-13 20:20 | Internal Med Progress Note ---
Hospitalist Progress Note - Encounter Date of Encounter: 12/13/18 Time of Encounter: 20:20 - Subjective Interval History: Pt denies chest pain or SOB. He denies fever, chills, N/V or diarrhea. She denies abdominal pain. - Exam Vitals: Temp Pulse Resp BP Pulse Ox 97.8 F 72 14 135/74 96 12/13/18 14:32 12/13/18 14:32 12/13/18 14:32 12/13/18 14:32 12/13/18 14:32 Exam: GENERAL:Cachectic elderly male. In no acute distress Bilateral nephrostomy tubes in place and draining Head exam: Present: atraumatic, normocephalic Eye exam: Present: PERRL, conjuntiva pink, sclera anicteric Pupils: Present: PERRL Neck exam general surgery: Present: supple, trachea midline. Absent: lymphadenopathy Respiratory exam: Present: decreased breath sounds, wheezes. Absent: accessory muscle use, rales, rhonchi Cardiovascular exam: Present: RRR, +S1, +S2. Absent: diastolic murmur, gallop, rubs, systolic murmur GI/Abdominal exam: Present: normal bowel sounds, soft, no peritoneal signs. Absent: distended, tenderness Extremities exam: Present: warm, radial pulses palpable and symmetrical. Absent: calf tenderness, cyanotic, pedal edema Neurological exam: Present: CN II-XII intact, oriented X3, no focal deficits. Absent: pronater drift, facial droop, speech deficit Skin exam: Present: dry, intact - Assessment and Plan (1) Acute exacerbation of chronic obstructive airways disease Current Visit: Yes Status: Acute Assessment and Plan: Comes in with shortness of breath, coughing and mild wheezes On nebs, po steroids, and was on ceftriaxone and azithromycin. No on PO zithromax. (2) Bladder cancer Current Visit: Yes Status: Acute Assessment and Plan: Metastatic bladder cancer. Per oncology likely metastatic. Oncology consulting and appreciate recs (3) Hydronephrosis Current Visit: Yes Status: Acute Assessment and Plan: See #1. Pt is s/p nephrostomy tube placement. Outpatient followup with urology (4) Acute renal failure Current Visit: Yes Status: Acute Assessment and Plan: Pt presented with urinary retention and acute renal failure likely secondary to obstruction from bladder mass CT done showed significant hydronephrosis. Patient had bilateral nephrostomy tubes placed by IR and was given fluids. Cr 1.05 today dwon from 5.48. Seen by Urology and renal. (5) Hyponatremia Current Visit: Yes Status: Acute Assessment and Plan: likely secondary to dehydration. Improved with fluids with normal saline and will continue to monitor sodium levels (6) Community acquired pneumonia Current Visit: Yes Status: Acute Assessment and Plan: CXR showed new infiltrate. Was on IV ceftriaxone and azithromycin Cultures showed no growth. Now on Zithromax. (7) Elevated troponin Current Visit: Yes Status: Acute Assessment and Plan: Likely secondary to demand ischemia. First troponin was 0.10 trending down to 0.08. Denies chest pain. Will consider cardiac workup / cardiology consult if indicated or if troponins trend up DVT Prophylaxis: heparins sc - Summary of Assessment and Plan Summary of Assessment and Plan: History of present illness: Dr. moraes Mr. Johnston is a 78 year old male with pmh of bladder cancer, COPD, GERD presenting with complaints of lower back pain, shortness of breath and an inability to urinate for a couple of days. Patient is known to the urology service for bladder cancer with metastases and he had a recent transurethral resection of his bladder tumor. He complains of having been unable to urinate and has been having intermittent lower back pain. He also complains of shortness of breath for about 4 days and has a cough productive of green phlegm. he admits to occasional wheezing, denies any fevers, chills, nausea or vomiting or any other acute symptoms. In the ER, a chest xray was done showing a pneumonia and a CT abdomen from 12/02 showed diffuse bladder wall thickening consistent with malignancy and and large amount of right sided hydronephrosis. He was supposed to have had nephrostomy tubes placed but he missed his initial appointment. IR was consulted from the ER and he had bilateral nephrostomy tubes placed before getting to the floor and he is being admitted for further management. - Time Spent with Patient Total time spent is greater than 50% in coordination of care (as documented) at patient's floor/unit and/or counseling patient: less than 15 minutes Plan of Care Discussed with: patient Internal Medicine: Result - Labs CBC & Chem 7: 12/11/18 01:30 12/13/18 04:16 Labs: BMP 12/13/18 04:16 Sodium 134 L Potassium 4.4 Chloride 97 L Carbon Dioxide 29 BUN 28 H Creatinine 1.05 Glucose 106 H Calcium 9.4 - ABG Interpretation ABG results: PT/INR, D-dimer PT 13.6 Seconds (9.4-12.1) H 12/10/18 11:50 - Impressions Impressions Nephrostomy 12/10/18 00:00 IMPRESSION: Successful bilateral 10 Burmese nephrostomy tube placement as described above. D/ / Jeffry High / Jeffry High Interpreting Provider: Jeffry High Nephrostomy 12/10/18 00:00 IMPRESSION: Successful bilateral 10 Burmese nephrostomy tube placement as described above. D/ / Jeffry High / Jeffry High Interpreting Provider: Jeffry High Consult Discharge Plan - Plan Referrals: Angel Harrell MD [Primary Care Provider] - (2) Bladder cancer Qualifiers: Bladder location: unspecified site Qualified Code(s): C67.9 - Malignant neoplasm of bladder, unspecified (3) Hydronephrosis Qualifiers: Hydronephrosis type: other Qualified Code(s): N13.39 - Other hydronephrosis (4) Acute renal failure Qualifiers: Qualified Code(s): N17.9 - Acute kidney failure, unspecified (6) Community acquired pneumonia Qualifiers: Qualified Code(s): J18.9 - Pneumonia, unspecified organism
[2018-12-14] MEDS: *HR* Heparin 5,000 UNIT/ML VIAL SQ SCH ×2 (05:29→18:45)
[2018-12-14] MEDS: *HR* HYDROcodone/Acet 5/325 mg TABLET PO PRN ×2 (05:29→22:54)
[2018-12-14] MEDS: Budesonide/Formoterol 160/4.5 1 PUFF INH IH SCH ×2 (07:26→20:35)
[2018-12-14] MEDS: predniSONE 20 MG TABLET PO SCH (11:25)
[2018-12-14] MEDS: Iron Polysaccharide Complex 150 MG CAPSULE PO SCH (11:25)
[2018-12-14] MEDS: Loratadine 10 MG TABLET PO SCH (11:25)
[2018-12-14] MEDS: Azithromycin 250 MG TABLET PO SCH (14:51)
--- NOTE | 2018-12-14 16:34 | Internal Med Progress Note ---
Hospitalist Progress Note - Encounter Date of Encounter: 12/14/18 Time of Encounter: 10:30 - Subjective Interval History: awake, friend at bedside. he ahs no complaints today. feeling genrally weak nit no pain, f/c, n/v. no abd pain or bladder pressure d/w SW and family still unclear about dispo. - Exam Vitals: Temp Pulse Resp BP Pulse Ox 98.6 F 100 16 135/75 92 12/14/18 14:58 12/14/18 14:58 12/14/18 14:58 12/14/18 14:58 12/14/18 14:58 Exam: GENERAL:Cachectic elderly male. In no acute distress Respiratory exam: ctabl, normal resp effort on o2 nc, diminished throughout Cardiovascular exam: RRR, +S1, +S2. no le edema GI/Abdominal exam:normal bowel sounds, soft, non tender, non distended gu: bl nephrostomy tubes draining clear yellow urine Neurological exam: AAO x 3 no focal deficits - Assessment and Plan (1) Acute exacerbation of chronic obstructive airways disease Current Visit: Yes Status: Acute Assessment and Plan: 2/2 pna, organism uk On nebs, po steroids, and was on ceftriaxone and azithromycin. last dose zithro today prednisone 5d burst to complete 5/15 prn o2 nc (2) Bladder cancer Current Visit: Yes Status: Acute Assessment and Plan: Likely Metastatic bladder cancer. Oncology consulting and appreciate recs During this admission he presented with retroperitoneal and para-aortic adenopathy they plan outpt PET and node bxs He will need to fu with Dr Ayala on dc (3) Hydronephrosis Current Visit: Yes Status: Acute Assessment and Plan: Pt is s/p BL nephrostomy tube placement. Outpatient followup with urology (4) Acute renal failure Current Visit: Yes Status: Resolved Assessment and Plan: Pt presented with urinary retention and acute renal failure likely secondary to obstruction from bladder mass RESOLVED CT done showed significant hydronephrosis. Patient had bilateral nephrostomy tubes placed by IR and was given fluids. Seen by Urology, Nephrology and Oncology (5) Hyponatremia Current Visit: Yes Status: Acute Assessment and Plan: likely secondary to dehydration. Improved with fluids with normal saline now declining again but no mental status changes encourage oral intake cont to monitor (6) Community acquired pneumonia Current Visit: Yes Status: Acute Assessment and Plan: CXR showed new RLL infiltrate. Was on IV ceftriaxone and azithromycin completed treatment today see above (7) Elevated troponin Current Visit: Yes Status: Acute Assessment and Plan: On admission Likely secondary to demand ischemia. First troponin was 0.10 and down trended to 0.06 Denied chest pain. he would benefit from outpt stress testing DVT Prophylaxis: heparins sc - Time Spent with Patient Total time spent is greater than 50% in coordination of care (as documented) at patient's floor/unit and/or counseling patient: Internal Medicine: Result - Labs CBC & Chem 7: 12/11/18 01:30 12/13/18 04:16 - ABG Interpretation ABG results: PT/INR, D-dimer PT 13.6 Seconds (9.4-12.1) H 12/10/18 11:50 Consult Discharge Plan - Plan Referrals: Angel Harrell MD [Primary Care Provider] - (2) Bladder cancer Qualifiers: Bladder location: unspecified site Qualified Code(s): C67.9 - Malignant neoplasm of bladder, unspecified (3) Hydronephrosis Qualifiers: Hydronephrosis type: other Qualified Code(s): N13.39 - Other hydronephrosis (4) Acute renal failure Qualifiers: Qualified Code(s): N17.9 - Acute kidney failure, unspecified (6) Community acquired pneumonia Qualifiers: Qualified Code(s): J18.9 - Pneumonia, unspecified organism
[2018-12-14] MEDS: Famotidine 20 MG TABLET PO SCH (18:45)
[2018-12-15] MEDS: ALPRAZolam 1 MG TABLET PO PRN ×3 (00:10→20:27)
[2018-12-15] MEDS: *HR* Heparin 5,000 UNIT/ML VIAL SQ SCH ×2 (06:10→17:32)
[2018-12-15] MEDS: *HR* HYDROcodone/Acet 5/325 mg TABLET PO PRN (06:10)
[2018-12-15 08:37] LABS: Basophils # 0.1 K/mcL (0.0-0.2); Basophils % 0.3 %; Eosinophils % 0.2 %; Hematocrit 35.4 % (37.5-50.1); Immature Granulocytes % 2.6 % (0-4); Lymphocytes # 1.7 K/mcL (0.6-4.6); Lymphocytes % 10.1 %; Mean Corpuscular HGB Conc 32.8 g/dL (31.6-35.5); Mean Corpuscular Hemoglobin 28.6 pg (28.0-33.3); Mean Corpuscular Volume 87.2 fL (83.0-100.0); Mean Platelet Volume 9.4 fL (9.4-12.4); Monocytes # 1.3 K/mcL (0.0-1.3); Monocytes % 7.6 %; Neutrophils # 13.3 K/mcL (1.6-8.9); Platelet Count 232 K/mcL (140-400); Red Blood Count 4.06 M/mcL (4.19-5.50); Segmented Neutrophils % 79.2 %
[2018-12-15 08:40] LABS: Hemoglobin 11.6 g/dL (12.9-16.9)
[2018-12-15 08:53] LABS: BUN/Creatinine Ratio 35 (6-26); Blood Urea Nitrogen 32 mg/dL (8-23); Calcium 9.1 mg/dL (8.6-10.3); Carbon Dioxide 31 mEq/L (23-29); Chloride 96 mEq/L (98-107); Glucose 82 mg/dL (70-105); Magnesium 1.8 mg/dL (1.6-2.6); Osmolality,Calculated 274 (280-300); Potassium 4.2 mEq/L (3.5-5.1); Sodium 129 mEq/L (136-145); eGFR For Non-African Americans > 60 (> 60)
[2018-12-15] MEDS: predniSONE 20 MG TABLET PO SCH (09:12)
[2018-12-15] MEDS: Loratadine 10 MG TABLET PO SCH (09:12)
[2018-12-15] MEDS: Iron Polysaccharide Complex 150 MG CAPSULE PO SCH (09:13)
[2018-12-15] MEDS: Budesonide/Formoterol 160/4.5 1 PUFF INH IH SCH ×2 (11:04→20:33)
[2018-12-15] MEDS ORDERED: 0.9 % Sodium Chloride 500 ML IVC ONE (11:07)
--- NOTE | 2018-12-15 11:08 | Internal Med Progress Note ---
Hospitalist Progress Note - Encounter Date of Encounter: 12/15/18 Time of Encounter: 11:08 - Exam Vitals: Temp Pulse Resp BP Pulse Ox 98.3 F 96 18 110/58 90 12/15/18 10:11 12/15/18 10:11 12/15/18 11:05 12/15/18 10:11 12/15/18 11:05 - Assessment and Plan (1) Acute exacerbation of chronic obstructive airways disease Current Visit: Yes Status: Acute (2) Bladder cancer Current Visit: Yes Status: Acute (3) Hydronephrosis Current Visit: Yes Status: Acute (4) Acute renal failure Current Visit: Yes Status: Resolved (5) Hyponatremia Current Visit: Yes Status: Acute (6) Community acquired pneumonia Current Visit: Yes Status: Acute (7) Elevated troponin Current Visit: Yes Status: Acute - Time Spent with Patient Total time spent is greater than 50% in coordination of care (as documented) at patient's floor/unit and/or counseling patient: Internal Medicine: Result - Labs CBC & Chem 7: 12/15/18 08:20 12/15/18 08:20 Labs: Short CBC 12/15/18 Range/Units 08:20 WBC 16.8 H D (4.3-11.1) K/mcL Hgb 11.6 L D (12.9-16.9) g/dL Hct 35.4 L (37.5-50.1) % Plt Count 232 (140-400) K/mcL Neutrophils # 13.3 H (1.6-8.9) K/mcL BMP 12/15/18 08:20 Sodium 129 L Potassium 4.2 Chloride 96 L Carbon Dioxide 31 H BUN 32 H Creatinine 0.92 Glucose 82 Calcium 9.1 - ABG Interpretation ABG results: PT/INR, D-dimer PT 13.6 Seconds (9.4-12.1) H 12/10/18 11:50 Consult Discharge Plan - Plan Referrals: Saturnino Ayala MD [Partnered Physician] - 12/20/18 9:00 am Angel Harrell MD [Primary Care Provider] - (2) Bladder cancer Qualifiers: Bladder location: unspecified site Qualified Code(s): C67.9 - Malignant neoplasm of bladder, unspecified (3) Hydronephrosis Qualifiers: Hydronephrosis type: other Qualified Code(s): N13.39 - Other hydronephrosis (4) Acute renal failure Qualifiers: Qualified Code(s): N17.9 - Acute kidney failure, unspecified (6) Community acquired pneumonia Qualifiers: Qualified Code(s): J18.9 - Pneumonia, unspecified organism
--- NOTE | 2018-12-15 15:06 | Discharge Summary ---
- NOTES TO OUTPATIENT PROVIDER Notes to Outpatient Provider: Patient will need a follow-up CBC and BMP in 1 week. Patient will need follow-up with urology and oncology as outpatient for nephrostomy tube management and further treatment for bladder cancer. Orders not resulted at time of discharge: Pending orders 12/10/18 11:16 Urinalysis Reflex Cult & Micro [URIN] Stat 12/10/18 11:49 Culture,Blood [BC] Routine 12/10/18 12:25 Legionella Antigen [RM] Routine Streptococcal pneumoniae urin antigen [S. Pneumoniae Antigen] [RM] Routine Date of Encounter: 12/15/18 Time of Encounter: 15:06 - Discharge Diagnosis (1) Acute exacerbation of chronic obstructive airways disease Priority: Primary Status: Acute (2) Bladder cancer Priority: Primary Status: Acute Qualifiers: Bladder location: unspecified site Qualified Code(s): C67.9 - Malignant n eoplasm of bladder, unspecified (3) Hydronephrosis Priority: Primary Status: Acute Qualifiers: Hydronephrosis type: other Qualified Code(s): N13.39 - Other hydronephrosis (4) Acute renal failure Priority: Primary Status: Resolved Qualifiers: Qualified Code(s): N17.9 - Acute kidney failure, unspecified (5) Hyponatremia Priority: Primary Status: Acute (6) Community acquired pneumonia Priority: Primary Status: Acute Qualifiers: Qualified Code(s): J18.9 - Pneumonia, unspecified organism (7) Elevated troponin Priority: Primary Status: Acute (8) Protein-calorie malnutrition, severe Priority: Secondary Status: Acute (9) COPD (chronic obstructive pulmonary disease) Priority: Secondary Status: Chronic Qualifiers: COPD type: unspecified COPD Qualified Code(s): J44.9 - Chronic obstructive pulmonary disease, unspecified (10) GERD (gastroesophageal reflux disease) Priority: Secondary Status: Chronic Qualifiers: Esophagitis presence: without esophagitis Qualified Code(s): K21.9 - Gastro-esophageal reflux disease without esophagitis Hospital course: Mr. Johnston is a 78 year old male with past medical history of bladder cancer, COPD, GERD came in with lower back pain and difficulty urinating. Patient was found to have acute renal failure and hydronephrosis on CT. Patient was seen by urology and had bilateral nephrostomy tube placement. Patient was also found to have COPD exacerbation and community-acquired pneumonia on his on chest x-ray . Patient was started on empiric antibiotics with ceftriaxone and azithromycin. He will need routine nephrostomy tube changes with urology as outpatient. Patient did have some leukocytosis initially which resolved quickly and his renal function improved significantly. Patient was found to have preaortic lymph nodes on imaging suspicious of progression of bladder cancer. Oncology was consulted. He had refused BCG treatment in the past. Patient will need PET scan as outpatient and possible lymph node biopsy as outpatient with oncology follow up. Patient initially refused rehabilitation which was recommended by physical therapy. Patient's hyponatremia improved with IV fluids which worsened on stopping fluid likely due to decreased intake PO. Patient did have elevated white count today but is afebrile and blood pressure is otherwise stable. Patient has been on steroids for COPD treatment which is likely the cause and now finished including antibiotics. he will need outpatient follow up for cbc and bmp along with urology and oncology followu up. Patient is otherwise stable to be discharged one placement is available. - Time Spent with Patient Total time spent providing and/or coordinating discharge services: - Discharge Medications Prescriptions: Continued Ranitidine HCl [Zantac] 300 mg PO QPM Albuterol Sulfate [Ventolin Hfa] 2 puff IH Q4H PRN PRN Reason: Dyspnea Montelukast [Singulair] 10 mg PO QPM Fluticasone Propionate Nasal [Flonase] 2 spr NS DAILY ALPRAZolam [Xanax 1 MG Tablet] 1 mg PO BID PRN PRN Reason: Anxiety Fluticasone/Salmeterol [Advair 250-50 Diskus] 1 puff IH BID Omeprazole [PriLOSEC] 20 mg PO QAM Cetirizine HCl [Zyrtec] 10 mg PO DAILY Tamsulosin [Flomax] 0.4 mg PO DAILY Iron Ps Complex/B12/Folic Acid [Iferex 150 Forte Capsule] 1 each PO DAILY Hyoscyamine SL [Levsin Sl] 0.125 mg SL Q4HR PRN PRN Reason: BLADDER SPASMS Ipratropium/Albuterol Neb [Duoneb] 3 ml IH Q6HR PRN PRN Reason: Shortness Of Breath HYDROcodone/Acet 5/325 mg [[place] 5-325 mg] 1 tab PO Q6H PRN PRN Reason: Pain Sennosides/Docusate Sodium [Docusate Sodium-Senna Tablet] 1 tab PO BID PRN PRN Reason: STOOL SOFTENER Home Medications: ALPRAZolam [Xanax 1 MG Tablet] 1 mg PO BID PRN 10/08/17 [History] Albuterol Sulfate [Ventolin Hfa] 2 puff IH Q4H PRN 10/08/17 [History] Fluticasone Propionate Nasal [Flonase] 2 spr NS DAILY 10/08/17 [History] Montelukast [Singulair] 10 mg PO QPM 10/08/17 [History] Ranitidine HCl [Zantac] 300 mg PO QPM 10/08/17 [History] Fluticasone/Salmeterol [Advair 250-50 Diskus] 1 puff IH BID 11/20/17 [History] Cetirizine HCl [Zyrtec] 10 mg PO DAILY 05/03/18 [History] Omeprazole [PriLOSEC] 20 mg PO QAM 05/03/18 [History] Tamsulosin [Flomax] 0.4 mg PO DAILY 05/03/18 [History] Hyoscyamine SL [Levsin Sl] 0.125 mg SL Q4HR PRN 11/22/18 [History] Iron Ps Complex/B12/Folic Acid [Iferex 150 Forte Capsule] 1 each PO DAILY 11/22/18 [History] HYDROcodone/Acet 5/325 mg [[place] 5-325 mg] 1 tab PO Q6H PRN 12/10/18 [History] Ipratropium/Albuterol Neb [Duoneb] 3 ml IH Q6HR PRN 12/10/18 [History] Sennosides/Docusate Sodium [Docusate Sodium-Senna Tablet] 1 tab PO BID PRN 12/10/18 [History] Allergies/Adverse Reactions: Allergy/AdvReac Type Severity Reaction Status Date / Time cephalexin [From Keflex] Allergy Itching Verified 12/04/18 16:34 ciprofloxacin Allergy Itching Verified 12/04/18 16:34 oxybutynin Allergy Itching Verified 12/04/18 16:34 tiotropium AdvReac Vomiting Verified 12/04/18 16:34 [From Spiriva with HandiHaler] Date of admission: 12/10/18 14:00 Primary care physician: Angel Harrell MD Consults: 12/10/18 11:46 Consult to Interventional Radiology [CONS] Stat Consulting Provider: Radiology Interventional Cols Reason for Consult: hydronephrosis Call Completed: Yes 12/10/18 12:18 Consult to Nephrology [CONS] Routine Consulting Provider: Kidney Sofia/SONAM/ALTHEA/BROWN Reason for Consult: acute renal failure Call Completed: No 12/10/18 14:37 Consult to Urology [CONS] Routine Consulting Provider: Urology Sofia Reason for Consult: bilateral hydronephrosis Call Completed: No 12/10/18 17:39 Consult to [employer] [CONS] Routine Reason for SW Consult: pt states that he lives home alone and has had frequent falls. pt stated "i think i would benefit from home health care services" 12/10/18 18:03 Consult to Oncology [CONS] Routine Consulting Provider: Oncology [facility] Reason for Consult: metastatic bladder cancer Call Completed: No 12/11/18 08:17 Consult to Nutrition [CONS] Routine Comment: Consulting Provider: NUTRITION Reason for Dietary Consult: PO Supplementation 12/12/18 14:46 Consult to Occupational Therapy [CONS] Routine Comment: Evaluate, develop and implement POC Reason for Consult: improve strenght and mobility, discharge planning Does patient have active BEDREST order?: No Is patient medically & hemodynamically stable?: Yes Consult to Physical Therapy [CONS] Routine Comment: Evaluate, develop and implement POC Reason for Consult: improve strenght and mobility, discharge planning Does patient have active BEDREST order?: No Is patient medically & hemodynamically stable?: Yes Discharging clinician: Brayan Blas - Constitutional Vitals: Temp Pulse Resp BP Pulse Ox 98.3 F 96 18 110/58 90 12/15/18 10:11 12/15/18 10:11 12/15/18 11:05 12/15/18 10:11 12/15/18 11:05 Exam: GENERAL:Cachectic elderly male. In no acute distress Respiratory exam: ctabl, normal resp effort on o2 nc, diminished throughout Cardiovascular exam: RRR, +S1, +S2. no le edema GI/Abdominal exam:normal bowel sounds, soft, non tender, non distended gu: bl nephrostomy tubes draining clear yellow urine Neurological exam: AAO x 3 no focal deficits - Patient Status Disposition: Transfer SNF Condition: Fair - Discharge Instructions Follow Up With: Saturnino Ayala MD [Partnered Physician] - 12/20/18 9:00 am Angel Harrell MD [Primary Care Provider] -
[2018-12-15] MEDS: Famotidine 20 MG TABLET PO SCH (17:33)
[2018-12-15] MEDS: Sennosides/Docusate Sodium TABLET PO PRN (20:27)
[2018-12-16] MEDS: *HR* HYDROcodone/Acet 5/325 mg TABLET PO PRN (02:56)
[2018-12-16 06:37] LABS: Basophils % 0.2 %; Eosinophils % 0.1 %; Hematocrit 32.4 % (37.5-50.1); Hemoglobin 10.7 g/dL (12.9-16.9); Immature Granulocytes % 1.4 % (0-4); Lymphocytes # 1.2 K/mcL (0.6-4.6); Lymphocytes % 7.2 %; Mean Corpuscular Hemoglobin 28.8 pg (28.0-33.3); Mean Corpuscular Volume 87.1 fL (83.0-100.0); Mean Platelet Volume 9.9 fL (9.4-12.4); Monocytes # 1.1 K/mcL (0.0-1.3); Monocytes % 6.7 %; Neutrophils # 14.5 K/mcL (1.6-8.9); Platelet Count 258 K/mcL (140-400); Red Blood Count 3.72 M/mcL (4.19-5.50); Red Cell Distribution Width 13.9 % (11.5-14.5); Segmented Neutrophils % 84.4 %
[2018-12-16] MEDS: *HR* Heparin 5,000 UNIT/ML VIAL SQ SCH ×2 (06:45→19:48)
[2018-12-16 06:56] LABS: BUN/Creatinine Ratio 46 (6-26); Blood Urea Nitrogen 48 mg/dL (8-23); Calcium 9.4 mg/dL (8.6-10.3); Carbon Dioxide 34 mEq/L (23-29); Chloride 95 mEq/L (98-107); Glucose 81 mg/dL (70-105); Osmolality,Calculated 290 (280-300); Potassium 4.7 mEq/L (3.5-5.1); Sodium 134 mEq/L (136-145); eGFR For Non-African Americans > 60 (> 60)
[2018-12-16] MEDS: Budesonide/Formoterol 160/4.5 1 PUFF INH IH SCH ×2 (07:14→23:05)
[2018-12-16] MEDS: Loratadine 10 MG TABLET PO SCH (08:15)
[2018-12-16] MEDS: ALPRAZolam 1 MG TABLET PO PRN ×2 (08:15→19:48)
[2018-12-16] MEDS: Iron Polysaccharide Complex 150 MG CAPSULE PO SCH (08:15)
[2018-12-16] MEDS: Sennosides/Docusate Sodium TABLET PO PRN ×2 (08:15→19:48)
--- NOTE | 2018-12-16 09:53 | Internal Med Progress Note ---
Hospitalist Progress Note - Encounter Date of Encounter: 12/16/18 Time of Encounter: 09:53 - Subjective Interval History: Patient seen and examined this morning at bedside. No acute overnight events. Complain of some abdominal discomfort as he has not had bowel movement. Denies any other complaints. No fevers chills nausea vomiting back pain. Some sediments noted in the left nephrostomy. - Exam Vitals: Temp Pulse Resp BP Pulse Ox 98.4 F 82 14 126/67 95 12/16/18 09:26 12/16/18 09:26 12/16/18 09:26 12/16/18 09:26 12/16/18 09:26 Exam: GENERAL:Cachectic elderly male. In no acute distress Respiratory exam: ctabl, normal resp effort on o2 nc, diminished throughout Cardiovascular exam: RRR, +S1, +S2. no le edema GI/Abdominal exam: soft, non tender, non distended gu: bl nephrostomy tubes draining. Left with some red sediments. Neurological exam: AAO x 3 no focal deficits - Assessment and Plan (1) Acute exacerbation of chronic obstructive airways disease Current Visit: Yes Status: Acute (2) Bladder cancer Current Visit: Yes Status: Acute (3) Hydronephrosis Current Visit: Yes Status: Acute (4) Acute renal failure Current Visit: Yes Status: Resolved (5) Hyponatremia Current Visit: Yes Status: Acute (6) Community acquired pneumonia Current Visit: Yes Status: Acute (7) Elevated troponin Current Visit: Yes Status: Acute (8) Protein-calorie malnutrition, severe Current Visit: No Status: Acute (9) COPD (chronic obstructive pulmonary disease) Current Visit: No Status: Chronic (10) GERD (gastroesophageal reflux disease) Current Visit: No Status: Chronic - Summary of Assessment and Plan Summary of Assessment and Plan: Assessment Acute renal failure Hydronephrosis Community acquired pneumonia COPD exacerbation Bladder cancer Elevated troponin Hyponatremia Leukocytosis DVT prophylaxis Plan - Renal function improved after nephrostomy. likely post obstructive in nature from locally advanced bladder ca - Patient has been discharged awaiting placement. - Did develop some leukocytosis on follow-up CBC. However it appears he is hemoconcentrated with elevation of hemoglobin as well and negative fluid balance and hyponatremia - We will to space with urology if any concern with leukocytosis. We will hold further antibiotics for now - Keep patient on IV fluids until by mouth intake. - COPD exacerbation resolved. Finish antibiotic and steroid course. - Patient will need follow-up with oncology for bladder cancer as outpatient - We will discharge the patient if okay with urology to continue IV fluid at the [facility] and follow-up CBC and BMP in 1-2 days. - Time Spent with Patient Total time spent is greater than 50% in coordination of care (as documented) at patient's floor/unit and/or counseling patient: Internal Medicine: Result - Labs CBC & Chem 7: 12/16/18 06:10 12/16/18 06:10 Labs: Short CBC 12/16/18 Range/Units 06:10 WBC 17.1 H (4.3-11.1) K/mcL Hgb 10.7 L (12.9-16.9) g/dL Hct 32.4 L (37.5-50.1) % Plt Count 258 (140-400) K/mcL Neutrophils # 14.5 H (1.6-8.9) K/mcL BMP 12/16/18 06:10 Sodium 134 L Potassium 4.7 Chloride 95 L Carbon Dioxide 34 H BUN 48 H Creatinine 1.04 Glucose 81 Calcium 9.4 - ABG Interpretation ABG results: PT/INR, D-dimer PT 13.6 Seconds (9.4-12.1) H 12/10/18 11:50 Consult Discharge Plan - Plan Referrals: Saturnino Ayala MD [Partnered Physician] - 12/20/18 9:00 am Angel Harrell MD [Primary Care Provider] - ____ (2) Bladder cancer Qualifiers: Bladder location: unspecified site Qualified Code(s): C67.9 - Malignant neoplasm of bladder, unspecified (3) Hydronephrosis Qualifiers: Hydronephrosis type: other Qualified Code(s): N13.39 - Other hydronephrosis (4) Acute renal failure Qualifiers: Qualified Code(s): N17.9 - Acute kidney failure, unspecified (6) Community acquired pneumonia Qualifiers: Qualified Code(s): J18.9 - Pneumonia, unspecified organism (9) COPD (chronic obstructive pulmonary disease) Qualifiers: COPD type: unspecified COPD Qualified Code(s): J44.9 - Chronic obstructive pulmonary disease, unspecified (10) GERD (gastroesophageal reflux disease) Qualifiers: Esophagitis presence: without esophagitis Qualified Code(s): K21.9 - Gastro- esophageal reflux disease without esophagitis
[2018-12-16] MEDS ORDERED: 0.9 % Sodium Chloride 1,000 ML ONE (10:56)
[2018-12-16] MEDS ORDERED: Ringers Solution, Lactated 1,000 ML ONE (11:03)
[2018-12-16] MEDS ORDERED: Ringers Solution, Lactated 1,000 ML IVC SCH (11:15)
[2018-12-16] MEDS ORDERED: Lactulose Oral Soln 20 GM/30 ML UDC PO ONE (13:35)
--- NOTE | 2018-12-16 14:36 | Urology Progress Note ---
Date of Encounter: 12/16/18 Time of Encounter: 14:15 - Assessment and Plan (1) Bladder cancer Current Visit: Yes Status: Acute Assessment and plan: Patient is a 78-year old male who presents with a history of bladder cancer. Patient has bilateral nephrostomy tubes secondary to locally invasive bladder cancer. There is concern for metastatic disease due to lymphadenopathy visualized on CT. Output is sufficient for bilateral nephrostomy tubes, and there is no purulence noted to either tube. WBC elevated to 17.1. The left tube does appear to be draining darker urine with scant blood. Vital signs are stable and afebrile, and renal function remains reassuring. Dr. High will be in to reevaluate patient. Qualifiers: Bladder location: unspecified site Qualified Code(s): C67.9 - Malignant neoplasm of bladder, unspecified Progress Note Subjective: no new complaints Narrative: Patient seen and examined lying in bed in no apparent distress. Patient denies any discomfort with nephrostomy tubes. Patient denies fever, chills or flank pain. Patient reports some discomfort from chronic constipation. Objective Initial Vital Signs Temp Pulse Resp BP Pulse Ox 98.1 F 84 18 165/75 93 12/10/18 10:14 12/10/18 10:14 12/10/18 10:14 12/10/18 10:14 12/10/18 10:14 - General physical appearance Present: no distress, no pain, cachectic, chronically ill - Respiratory Present: normal expansion, normal respiratory effort - Abdomen Present: soft, non tender. Absent: distended - Genitourinary Present: other (right nephrostomy tube with transparent, clear, light yellow urine; left nephrostomy tube with transparent, dark yellow urine and scant dark blood in tubing) Urine Appearance: Absent: Sediment, Mucous Threads, Purulent - Integumentary Present: no rash, no abnormal pigmentation - Musculoskeletal Present: normal posture - Psychiatric Present: oriented to time, oriented to person, oriented to place, speech is nor mal, memory intact - Labs 12/16/18 06:10 12/16/18 06:10 Diabetes panel 12/16/18 Range/Units 06:10 Sodium 134 L (136-145) mEq/L Potassium 4.7 (3.5-5.1) mEq/L Chloride 95 L (98-107) mEq/L Carbon Dioxide 34 H (23-29) mEq/L BUN 48 H (8-23) mg/dL Creatinine 1.04 (0.70-1.30) mg/dL Glucose 81 (70-105) mg/dL Calcium 9.4 (8.6-10.3) mg/dL Calcium panel 12/16/18 Range/Units 06:10 Calcium 9.4 (8.6-10.3) mg/dL Pituitary panel 12/16/18 Range/Units 06:10 Sodium 134 L (136-145) mEq/L Potassium 4.7 (3.5-5.1) mEq/L Chloride 95 L (98-107) mEq/L Carbon Dioxide 34 H (23-29) mEq/L BUN 48 H (8-23) mg/dL Creatinine 1.04 (0.70-1.30) mg/dL Glucose 81 (70-105) mg/dL Calcium 9.4 (8.6-10.3) mg/dL Adrenal panel 12/16/18 Range/Units 06:10 Sodium 134 L (136-145) mEq/L Potassium 4.7 (3.5-5.1) mEq/L Chloride 95 L (98-107) mEq/L Carbon Dioxide 34 H (23-29) mEq/L BUN 48 H (8-23) mg/dL Creatinine 1.04 (0.70-1.30) mg/dL Glucose 81 (70-105) mg/dL Calcium 9.4 (8.6-10.3) mg/dL Consult Discharge Plan - Plan Referrals: Saturnino Ayala MD [Partnered Physician] - 12/20/18 9:00 am Angel Harrell MD [Primary Care Provider] -
[2018-12-16] MEDS: Ringers Solution, Lactated 1,000 ML IVC SCH ×2 (14:40→22:02)
[2018-12-16] MEDS: Pantoprazole 40 MG VIAL IVP SCH (21:59)
[2018-12-17] MEDS: *HR* HYDROcodone/Acet 5/325 mg TABLET PO PRN ×2 (03:46→15:14)
[2018-12-17] MEDS: Pantoprazole 40 MG VIAL IVP SCH (05:46)
[2018-12-17] MEDS: *HR* Heparin 5,000 UNIT/ML VIAL SQ SCH (05:46)
[2018-12-17 06:18] LABS: Basophils % 0.2 %; Eosinophils # 0.1 K/mcL (0.0-0.6); Eosinophils % 0.8 %; Hematocrit 30.2 % (37.5-50.1); Hemoglobin 10.1 g/dL (12.9-16.9); Immature Granulocytes % 1.5 % (0-4); Lymphocytes # 1.2 K/mcL (0.6-4.6); Lymphocytes % 7.9 %; Mean Corpuscular HGB Conc 33.4 g/dL (31.6-35.5); Mean Corpuscular Hemoglobin 29.3 pg (28.0-33.3); Mean Corpuscular Volume 87.5 fL (83.0-100.0); Monocytes # 1.2 K/mcL (0.0-1.3); Monocytes % 7.5 %; Neutrophils # 12.8 K/mcL (1.6-8.9); Platelet Count 290 K/mcL (140-400); Red Blood Count 3.45 M/mcL (4.19-5.50); Red Cell Distribution Width 14.3 % (11.5-14.5); Segmented Neutrophils % 82.1 %
[2018-12-17 06:31] LABS: BUN/Creatinine Ratio 36 (6-26); Blood Urea Nitrogen 33 mg/dL (8-23); Calcium 8.8 mg/dL (8.6-10.3); Carbon Dioxide 31 mEq/L (23-29); Chloride 97 mEq/L (98-107); Glucose 114 mg/dL (70-105); Osmolality,Calculated 282 (280-300); Potassium 4.7 mEq/L (3.5-5.1); Sodium 132 mEq/L (136-145); eGFR For Non-African Americans > 60 (> 60)
[2018-12-17] MEDS: Budesonide/Formoterol 160/4.5 1 PUFF INH IH SCH (07:32)
[2018-12-17] MEDS: Ringers Solution, Lactated 1,000 ML IVC SCH (08:07)
[2018-12-17] MEDS: Loratadine 10 MG TABLET PO SCH (08:07)
[2018-12-17] MEDS: Sennosides/Docusate Sodium TABLET PO PRN (08:07)
--- NOTE | 2018-12-17 10:14 | Electrocardiograph Report ---
[address] [address] Test Date: 2018-12-16 Pat Name: Talon Johnston Department: [id number] Room: 3A23 Gender: M Product [employer] Intern: : 1940 Requested By: Brayan Blas Order Number: [id number] Reading MD: Jose Villeda Measurements Intervals Dennard Rate: 99 P: 88 MD: 134 QRS: 86 QRSD: 91 T: 73 QT: 318 QTc: 374 Interpretive Statements SINUS RHYTHM WITH OCCASIONAL VENTRICULAR PREMATURE COMPLEXES Electronically Signed On 12-17-2018 10:13:29 EDT by Jose Villeda
--- NOTE | 2018-12-17 11:15 | Internal Med Progress Note ---
Hospitalist Progress Note - Encounter Date of Encounter: 12/17/18 Time of Encounter: 11:15 - Subjective Interval History: Patient seen and examined this morning at bedside. No acute overnight events. Denies new complaint except some back discomfort was sleeping on nephrostomy tubes. He did have bowel movement after the enema. Denies any further chest pain. Denies any abdominal pain. - Exam Vitals: Temp Pulse Resp BP Pulse Ox 97.8 F 91 16 107/64 95 12/17/18 07:36 12/17/18 07:36 12/17/18 07:36 12/17/18 07:36 12/17/18 07:36 Exam: GENERAL:Cachectic elderly male. In no acute distress, anxious Respiratory exam: ctab, normal resp effort on o2 nc, diminished throughout Cardiovascular exam: RRR, +S1, +S2. no le edema GI/Abdominal exam: soft, non tender, non distended gu: bl nephrostomy tubes draining. Left with some red sediments. Neurological exam: AAO x 3 no focal deficits - Assessment and Plan (1) Acute exacerbation of chronic obstructive airways disease Current Visit: Yes Status: Acute (2) Bladder cancer Current Visit: Yes Status: Acute (3) Hydronephrosis Current Visit: Yes Status: Acute (4) Acute renal failure Current Visit: Yes Status: Resolved (5) Hyponatremia Current Visit: Yes Status: Acute (6) Community acquired pneumonia Current Visit: Yes Status: Acute (7) Elevated troponin Current Visit: Yes Status: Acute (8) Protein-calorie malnutrition, severe Current Visit: No Status: Acute (9) COPD (chronic obstructive pulmonary disease) Current Visit: No Status: Chronic (10) GERD (gastroesophageal reflux disease) Current Visit: No Status: Chronic - Summary of Assessment and Plan Summary of Assessment and Plan: Assessment Acute renal failure Hydronephrosis Community acquired pneumonia COPD exacerbation Bladder cancer Elevated troponin- resolved Hyponatremia Leukocytosis DVT prophylaxis Plan - Renal function improved after nephrostomy. likely post obstructive in nature from locally advanced bladder ca - Patient discharged her yesterday due to chest pain. EKG without acute ischemic changes. Troponin remains negative. No chest pain-free. Likely related to anxiety. Patient stable to be discharged to rehabilitation today. - Still with dehydration leading to some leukocytosis, hyponatremia likely from hemoconcentration. Improving with IV fluids. He will need to continue IV fluids until good by mouth intake at longterm. We will hold any antibiotics for now. - COPD exacerbation resolved. Finish antibiotic and steroid course. - Patient will need follow-up with oncology for bladder cancer as outpatient - Time Spent with Patient Total time spent is greater than 50% in coordination of care (as documented) at patient's floor/unit and/or counseling patient: Internal Medicine: Result - Labs CBC & Chem 7: 12/17/18 06:00 12/17/18 06:00 Labs: Short CBC 12/17/18 Range/Units 06:00 WBC 15.5 H (4.3-11.1) K/mcL Hgb 10.1 L (12.9-16.9) g/dL Hct 30.2 L (37.5-50.1) % Plt Count 290 (140-400) K/mcL Neutrophils # 12.8 H (1.6-8.9) K/mcL BMP 12/17/18 06:00 Sodium 132 L Potassium 4.7 Chloride 97 L Carbon Dioxide 31 H BUN 33 H Creatinine 0.92 Glucose 114 H Calcium 8.8 Cardiac Enzymes 12/16/18 12/17/18 Range/Units 19:52 06:00 Troponin I 0.03 0.03 (< 0.04) ng/mL - ABG Interpretation ABG results: PT/INR, D-dimer PT 13.6 Seconds (9.4-12.1) H 12/10/18 11:50 Consult Discharge Plan - Plan Referrals: Saturnino Ayala MD [Partnered Physician] - 12/20/18 9:00 am Angel Harrell MD [Primary Care Provider] - (2) Bladder cancer Qualifiers: Bladder location: unspecified site Qualified Code(s): C67.9 - Malignant neoplasm of bladder, unspecified (3) Hydronephrosis Qualifiers: Hydronephrosis type: other Qualified Code(s): N13.39 - Other hydronephrosis (4) Acute renal failure Qualifiers: Qualified Code(s): N17.9 - Acute kidney failure, unspecified (6) Community acquired pneumonia Qualifiers: Qualified Code(s): J18.9 - Pneumonia, unspecified organism (9) COPD (chronic obstructive pulmonary disease) Qualifiers: COPD type: unspecified COPD Qualified Code(s): J44.9 - Chronic obstructive pulmonary disease, unspecified (10) GERD (gastroesophageal reflux disease) Qualifiers: Esophagitis presence: without esophagitis Qualified Code(s): K21.9 - Gastro- esophageal reflux disease without esophagitis
[2018-12-17 12:09] VITALS: BP 103/62
[2018-12-17] MEDS: ALPRAZolam 1 MG TABLET PO PRN (15:02)
[2018-12-17] MEDS: Hyoscyamine SL 0.125 MG TAB.SUBL SL PRN (15:14)
--- NOTE | 2018-12-17 16:24 | Physician Discharge Referral ---
[facility] Referral Info Institutional Level of Care: Skilled - Diagnosis (1) Acute exacerbation of chronic obstructive airways disease Status: Acute (2) Bladder cancer Status: Acute (3) Hydronephrosis Status: Acute (4) Acute renal failure Status: Resolved (5) Hyponatremia Status: Acute (6) Community acquired pneumonia Status: Acute (7) Elevated troponin Status: Acute (8) Protein-calorie malnutrition, severe Status: Acute (9) COPD (chronic obstructive pulmonary disease) Status: Chronic (10) GERD (gastroesophageal reflux disease) Status: Chronic - Transfer Medications Home Medications: ALPRAZolam [Xanax 1 MG Tablet] 1 mg PO BID PRN 10/08/17 [History] Albuterol Sulfate [Ventolin Hfa] 2 puff IH Q4H PRN 10/08/17 [History] Fluticasone Propionate Nasal [Flonase] 2 spr NS DAILY 10/08/17 [History] Montelukast [Singulair] 10 mg PO QPM 10/08/17 [History] Ranitidine HCl [Zantac] 300 mg PO QPM 10/08/17 [History] Fluticasone/Salmeterol [Advair 250-50 Diskus] 1 puff IH BID 11/20/17 [History] Cetirizine HCl [Zyrtec] 10 mg PO DAILY 05/03/18 [History] Omeprazole [PriLOSEC] 20 mg PO QAM 05/03/18 [History] Tamsulosin [Flomax] 0.4 mg PO DAILY 05/03/18 [History] Hyoscyamine SL [Levsin Sl] 0.125 mg SL Q4HR PRN 11/22/18 [History] Iron Ps Complex/B12/Folic Acid [Iferex 150 Forte Capsule] 1 each PO DAILY 11/22/18 [History] HYDROcodone/Acet 5/325 mg [[place] 5-325 mg] 1 tab PO Q6H PRN 12/10/18 [History] Ipratropium/Albuterol Neb [Duoneb] 3 ml IH Q6HR PRN 12/10/18 [History] Sennosides/Docusate Sodium [Docusate Sodium-Senna Tablet] 1 tab PO BID PRN 12/10/18 [History] Allergies/Adverse Reactions: Allergy/AdvReac Type Severity Reaction Status Date / Time cephalexin [From flex] Allergy Itching Verified 12/04/18 16:34 ciprofloxacin Allergy Itching Verified 12/04/18 16:34 oxybutynin Allergy Itching Verified 12/04/18 16:34 tiotropium AdvReac Vomiting Verified 12/04/18 16:34 [From Spiriva with HandiHaler] - Respiratory Orders Smoking Cessation: Smoking cessation has been advised. For more information, call the [place] Tobacco Quit Line at 0-391-KKIT-NOW. - Treatments List/Other: Continue maintainance IV fluids until PO intake appropirate CERTIFICATION: I certify that the transfer of the above named patient to an Extended Care Facility is necessary for the continuing treatment of the diagnosis listed. The above information is true and accurate reflection of patient's current condition. Confidential - Redisclosure prohibited without a patient's written consent.
== END 2018-12-17 18:07 | DRG 686 ==
LOC: EMEROOARM 10:10 → SUATTDRO 14:00 → 3ANU 14:00
PROVIDERS: ADMIT Student in an Organized Health Care Education/Training Program; ATTEND Internal Medicine